=== PATIENT | male | born 1950 | race Caucasian/White ===

== ENCOUNTER 2017-08-16 15:54 | Inpatient (IN) ==
[2017-08-16 17:08] LABS: Basophils % 0.1 %; Hematocrit 39.5 % (37.5-50.1); Hemoglobin 13.4 g/dL (12.9-16.9); Immature Granulocytes % 0.9 % (0-4); Immature Platelets 3.1 % (1.1-6.1); Lymphocytes # 1.2 K/mcL (0.6-4.6); Lymphocytes % 5.5 %; Mean Corpuscular HGB Conc 33.9 g/dL (31.6-35.5); Mean Corpuscular Hemoglobin 28.4 pg (28.0-33.3); Mean Corpuscular Volume 83.7 fL (83.0-100.0); Monocytes % 9.2 %; Neutrophils # 17.8 K/mcL (1.6-8.9); Platelet Count 268 K/mcL (140-400); Red Blood Count 4.72 M/mcL (4.19-5.50); Red Cell Distribution Width 12.7 % (11.5-14.5); Segmented Neutrophils % 84.3 %
[2017-08-16] MEDS ORDERED: Piperacillin/Tazobactam 3.375 GM in Water for inj. (sterile) 20 ML IVP ONE (17:10)
[2017-08-16] MEDS ORDERED: Vancomycin 1,000 MG in D5% in Water 250 ML IVPB ONE (17:10)
--- NOTE | 2017-08-16 17:14 | Emergency Department Note ---
Disposition Clinical Impression: Chest pain Qualifiers: Chest pain type: unspecified Qualified Code(s): R07.9 - Chest pain, unspecified Foot ulcer Qualifiers: Laterality: right Non-pressure ulcer stage: unspecified non-pressure ulcer stage Qualified Code(s): L97.519 - Non-pressure chronic ulcer of other part of right foot with unspecified severity Cellulitis Qualifiers: Site of cellulitis: extremity Site of cellulitis of extremity: toe Laterality: right Qualified Code(s): L03.031 - Cellulitis of right toe Disposition: Admitted As Inpatient Condition: Fair Referrals: Aditya Espinoza Jr, MD [Primary Care Provider] - Forms: ED Satisfaction Letter Time of Disposition: 20:41 General Adult HPI - General Chief complaint: ED Weakness Stated complaint: Multiple complaints Time Seen by Provider: 08/16/17 16:42 Source: patient, family Limitations: no limitations Nursing Notes Reviewed: Yes Vital Signs Reviewed: Yes - History of Present Illness HPI Narrative: Patient is a 66-year-old male that presents to the emergency department for generalized not feeling well. Patient said he feels wore out, vomiting, diarrhea and not eating well for the past week. Patient states his fever and chills. States that he has also had generalized body aches. Nothing makes any better or worse. Patient also states that he is having some chest discomfort and shortness of breath with a history of open-heart surgery consisting of triple bypass and aortic valve replacement. Patient also states that he has had a wound to his right great toe that began approximately 3 days ago. Pain Scale: 8 - Related Data Home Medications Medication Instructions Recorded Confirmed Enalapril Maleate [Vasotec] 10 mg PO BID 12/17/15 02/25/17 Furosemide [Lasix] 20 mg PO DAILY 12/17/15 02/25/17 Simvastatin [Zocor] 40 mg PO QPM 12/17/15 02/25/17 SitaGLIPtin [Januvia] 100 mg PO DAILY 12/17/15 02/25/17 Sotalol [Betapace] 80 mg PO Q12HR 12/17/15 02/25/17 Spironolactone [Aldactone] 12.5 mg PO DAILY 12/17/15 02/25/17 glipiZIDE [Glipizide] 10 mg PO DAILY 05/23/16 08/02/17 metFORMIN [Glucophage] 1,000 mg PO BIDWM 12/17/15 02/25/17 Aspirin 325 mg PO BID 01/11/16 02/25/17 Allergies Allergy/AdvReac Type Severity Reaction Status Date / Time codeine Allergy Rash Verified 08/16/17 16:07 All systems ED: reviewed and negative except as stated. Constitutional: Reports: other Cardiovascular: Reports: chest pain Respiratory: Reports: dyspnea (Body aches) Gastrointestinal: Reports: nausea, vomiting, diarrhea Integumentary: Reports: other Past Medical History - Past Medical History Medical history: Reports: CHF, diabetes, hyperlipidemia, hypertension, peripheral artery disease, valvular heart disease Surgical history: Reports: coronary bypass (CABG), heart valve replacement, pacemaker/AICD, vascular surgery Psychiatric history: Reports: no psych history - Social History Smoking Status: Former smoker Smokeless Tobacco Status: Yes Alcohol use: Reports: none Drug use: Reports: none Physical Exam - General Limitations: no limitations General appearance: alert, in no apparent distress - Head Head exam: atraumatic, normocephalic - Eye Eye exam: Present: normal appearance, EOMI - Neck Neck exam: Present: normal inspection, full ROM, trachea midline - Respiratory Respiratory exam: Present: normal lung sounds bilaterally. Absent: respiratory distress, wheezes - Cardiovascular Cardiovascular exam: Present: normal rhythm, tachycardia, normal heart sounds, + S1, +S2 - Abdominal Exam Abdominal exam: Present: soft, Non-Tender, normal bowel sounds - Expanded Lower Extremity Exam Foot/toe exam: Present: full ROM, other (Patient has erythema and if ulcer to the right great toe.). Absent: normal inspection, tenderness Neurovascular/Tendon exam: Present: normal capillary refill, pulse deficit, motor deficit, sensory deficit - Neurological Exam Neurological exam: Present: alert, oriented X3 - Psychiatric Psychiatric exam: Present: normal affect, normal mood - Skin Skin exam: Present: warm, dry, erythema (Over the right foot), other (Ulcer on the right great toe) Course Vital Signs Temperature 98.8 F 08/16/17 16:02 Pulse Rate 108 08/16/17 16:02 Respiratory Rate 18 08/16/17 16:02 Blood Pressure 117/74 08/16/17 16:02 O2 Sat by Pulse Oximetry 95 08/16/17 16:02 Temperature 98.8 F 08/16/17 16:02 Pulse Rate 107 08/16/17 20:20 Respiratory Rate 20 08/16/17 20:20 Blood Pressure 117/66 08/16/17 20:20 O2 Sat by Pulse Oximetry 96 08/16/17 20:20 Oxygen Delivery Oxygen Delivery Room Air Medical Decision Making - MDM Narrative Medical decision making narrative: We will order a CBC, BMP, troponin, chest x-ray, EKG, x-rays the foot, blood cultures, ESR. The patient's troponin was negative. Patient does have an elevated white count which could be consistent with a possible cellulitis or infection of the foot ulcer. His EKG showed a ventricular paced rhythm without STEMI noted. X-rays of the foot were negative for bony erosion or osteomyelitis. Patient has been elevated glucose of 363 with an anion gap of 15. The patient's bicarbonate is 22. Patient has an elevated ESR, CRP and white count. There is concern for this diabetic foot ulcer and possible cellulitis. The patient has been started on vancomycin and Zosyn to cover for any diabetic infections. I called and talked to the on-call art therapy specialist Dr. Toussaint and he is in agreement with treating this like a diabetic foot ulcer and is familiar with this patient. He stated that he would see this patient in consult tomorrow. The patient will need to be admitted to the hospital for further evaluation and management. Consult the hospitalist medics and the patient her service. The patient be admitted to the hospitalist for further evaluation and management - Lab Data Lab results reviewed: Yes I reviewed the patient's lab results. Result diagrams: 08/16/17 16:59 08/16/17 16:59 Lab Results 08/16/17 08/16/17 08/16/17 Range/Units 16:13 16:59 16:59 WBC 21.1 H (4.3-11.1) K/mcL RBC 4.72 (4.19-5.50) M/mcL Hgb 13.4 (12.9-16.9) g/dL Hct 39.5 (37.5-50.1) % MCV 83.7 (83.0-100.0) fL MCH 28.4 (28.0-33.3) pg MCHC 33.9 (31.6-35.5) g/dL RDW 12.7 (11.5-14.5) % Plt Count 268 (140-400) K/mcL MPV 10.0 (9.4-12.4) fL Immature Gran % 0.9 (0-4) % Seg Neutrophils % 84.3 % Lymphocytes % 5.5 % Monocytes % 9.2 % Eosinophils % 0.0 % Basophils % 0.1 % Neutrophils # 17.8 H (1.6-8.9) K/mcL Lymphocytes # 1.2 (0.6-4.6) K/mcL Monocytes # 2.0 H (0.0-1.3) K/mcL Eosinophils # 0.0 (0.0-0.6) K/mcL Basophils # 0.0 (0.0-0.2) K/mcL Immature Plt Fraction 3.1 (1.1-6.1) % ESR (0-10) mm/hr PT (9.4-12.1) Seconds INR APTT (26.0-36.0) Seconds VBG pH (7.32-7.42) pH Units VBG pCO2 (41-51) mmHg VBG pO2 (25-50) mmHg VBG HCO3 (21-27) mEq/L Sodium 127 L (136-145) mEq/L Potassium 4.6 (3.5-5.1) mEq/L Chloride 93 L (98-107) mEq/L Carbon Dioxide 22 L (23-29) mEq/L BUN 32 H (8-23) mg/dL Creatinine 1.03 (0.70-1.30) mg/dL Est GFR ( Amer) > 60 (> 60) Est GFR (Non-Af Amer) > 60 (> 60) BUN/Creatinine Ratio 31 H (6-26) Glucose 363 H (70-105) mg/dL POC Glucose 363 H (58-89) Calculated Osmolality 286 (280-300) Calcium 9.0 (8.6-10.3) mg/dL Total Bilirubin 0.9 (0.3-1.0) mg/dL AST 14 (13-39) Units/L ALT 16 (7-52) Units/L Alkaline Phosphatase 72 (34-104) Units/L Troponin I (< 0.04) ng/mL C-Reactive Protein (Less than 10) mg/L Serum Total Protein 7.0 (6.4-8.9) g/dL Albumin 3.5 (3.5-5.7) g/dL Globulin 3.5 (2.4-3.5) g/dL Albumin/Globulin Ratio 1.0 L (1.1-2.2) Beta-Hydroxybutyric Acd (0.02-0.27) mmol/L Urine Color (Yellow) Urine Clarity (Clear) Urine pH (5.0-8.0) pH Units Ur Specific [place] (1.010-1.025) Urine Protein (Neg-Trace) mg/dL Urine Glucose (UA) (Normal) mg/dL Urine Ketones (Negative) mg/dL Urine Blood (Negative) Urine Nitrite (Negative) Urine Bilirubin (Negative) Urine Urobilinogen (Normal) mg/dL Ur Leukocyte Esterase (Negative) Ur Culture Indicated? (NO) 08/16/17 08/16/17 08/16/17 Range/Units 16:59 17:22 17:22 WBC (4.3-11.1) K/mcL RBC (4.19-5.50) M/mcL Hgb (12.9-16.9) g/dL Hct (37.5-50.1) % MCV (83.0-100.0) fL MCH (28.0-33.3) pg MCHC (31.6-35.5) g/dL RDW (11.5-14.5) % Plt Count (140-400) K/mcL MPV (9.4-12.4) fL Immature Gran % (0-4) % Seg Neutrophils % % Lymphocytes % % Monocytes % % Eosinophils % % Basophils % % Neutrophils # (1.6-8.9) K/mcL Lymphocytes # (0.6-4.6) K/mcL Monocytes # (0.0-1.3) K/mcL Eosinophils # (0.0-0.6) K/mcL Basophils # (0.0-0.2) K/mcL Immature Plt Fraction (1.1-6.1) % ESR >= 130 H (0-10) mm/hr PT 12.5 H (9.4-12.1) Seconds INR 1.2 APTT 27.0 (26.0-36.0) Seconds VBG pH (7.32-7.42) pH Units VBG pCO2 (41-51) mmHg VBG pO2 (25-50) mmHg VBG HCO3 (21-27) mEq/L Sodium (136-145) mEq/L Potassium (3.5-5.1) mEq/L Chloride (98-107) mEq/L Carbon Dioxide (23-29) mEq/L BUN (8-23) mg/dL Creatinine (0.70-1.30) mg/dL Est GFR ( Amer) (> 60) Est GFR (Non-Af Amer) (> 60) BUN/Creatinine Ratio (6-26) Glucose (70-105) mg/dL POC Glucose (58-89) Calculated Osmolality (280-300) Calcium (8.6-10.3) mg/dL Total Bilirubin (0.3-1.0) mg/dL AST (13-39) Units/L ALT (7-52) Units/L Alkaline Phosphatase (34-104) Units/L Troponin I < 0.03 (< 0.04) ng/mL C-Reactive Protein (Less than 10) mg/L Serum Total Protein (6.4-8.9) g/dL Albumin (3.5-5.7) g/dL Globulin (2.4-3.5) g/dL Albumin/Globulin Ratio (1.1-2.2) Beta-Hydroxybutyric Acd (0.02-0.27) mmol/L Urine Color (Yellow) Urine Clarity (Clear) Urine pH (5.0-8.0) pH Units Ur Specific [place] (1.010-1.025) Urine Protein (Neg-Trace) mg/dL Urine Glucose (UA) (Normal) mg/dL Urine Ketones (Negative) mg/dL Urine Blood (Negative) Urine Nitrite (Negative) Urine Bilirubin (Negative) Urine Urobilinogen (Normal) mg/dL Ur Leukocyte Esterase (Negative) Ur Culture Indicated? (NO) 08/16/17 08/16/17 08/16/17 Range/Units 17:22 17:51 17:54 WBC (4.3-11.1) K/mcL RBC (4.19-5.50) M/mcL Hgb (12.9-16.9) g/dL Hct (37.5-50.1) % MCV (83.0-100.0) fL MCH (28.0-33.3) pg MCHC (31.6-35.5) g/dL RDW (11.5-14.5) % Plt Count (140-400) K/mcL MPV (9.4-12.4) fL Immature Gran % (0-4) % Seg Neutrophils % % Lymphocytes % % Monocytes % % Eosinophils % % Basophils % % Neutrophils # (1.6-8.9) K/mcL Lymphocytes # (0.6-4.6) K/mcL Monocytes # (0.0-1.3) K/mcL Eosinophils # (0.0-0.6) K/mcL Basophils # (0.0-0.2) K/mcL Immature Plt Fraction (1.1-6.1) % ESR (0-10) mm/hr PT (9.4-12.1) Seconds INR APTT (26.0-36.0) Seconds VBG pH (7.32-7.42) pH Units VBG pCO2 (41-51) mmHg VBG pO2 (25-50) mmHg VBG HCO3 (21-27) mEq/L Sodium (136-145) mEq/L Potassium (3.5-5.1) mEq/L Chloride (98-107) mEq/L Carbon Dioxide (23-29) mEq/L BUN (8-23) mg/dL Creatinine (0.70-1.30) mg/dL Est GFR ( Amer) (> 60) Est GFR (Non-Af Amer) (> 60) BUN/Creatinine Ratio (6-26) Glucose (70-105) mg/dL POC Glucose (58-89) Calculated Osmolality (280-300) Calcium (8.6-10.3) mg/dL Total Bilirubin (0.3-1.0) mg/dL AST (13-39) Units/L ALT (7-52) Units/L Alkaline Phosphatase (34-104) Units/L Troponin I (< 0.04) ng/mL C-Reactive Protein 252 H (Less than 10) mg/L Serum Total Protein (6.4-8.9) g/dL Albumin (3.5-5.7) g/dL Globulin (2.4-3.5) g/dL Albumin/Globulin Ratio (1.1-2.2) Beta-Hydroxybutyric Acd 1.28 H (0.02-0.27) mmol/L Urine Color Yellow (Yellow) Urine Clarity Clear (Clear) Urine pH 5.5 (5.0-8.0) pH Units Ur Specific [place] > 1.030 H (1.010-1.025) Urine Protein Negative (Neg-Trace) mg/dL Urine Glucose (UA) >=1000 H (Normal) mg/dL Urine Ketones 15 H (Negative) mg/dL Urine Blood Negative (Negative) Urine Nitrite Negative (Negative) Urine Bilirubin Negative (Negative) Urine Urobilinogen Normal (Normal) mg/dL Ur Leukocyte Esterase Negative (Negative) Ur Culture Indicated? NO (NO) 08/16/17 Range/Units 18:06 WBC (4.3-11.1) K/mcL RBC (4.19-5.50) M/mcL Hgb (12.9-16.9) g/dL Hct (37.5-50.1) % MCV (83.0-100.0) fL MCH (28.0-33.3) pg MCHC (31.6-35.5) g/dL RDW (11.5-14.5) % Plt Count (140-400) K/mcL MPV (9.4-12.4) fL Immature Gran % (0-4) % Seg Neutrophils % % Lymphocytes % % Monocytes % % Eosinophils % % Basophils % % Neutrophils # (1.6-8.9) K/mcL Lymphocytes # (0.6-4.6) K/mcL Monocytes # (0.0-1.3) K/mcL Eosinophils # (0.0-0.6) K/mcL Basophils # (0.0-0.2) K/mcL Immature Plt Fraction (1.1-6.1) % ESR (0-10) mm/hr PT (9.4-12.1) Seconds INR APTT (26.0-36.0) Seconds VBG pH 7.37 (7.32-7.42) pH Units VBG pCO2 45 (41-51) mmHg VBG pO2 21 L (25-50) mmHg VBG HCO3 26 (21-27) mEq/L Sodium (136-145) mEq/L Potassium (3.5-5.1) mEq/L Chloride (98-107) mEq/L Carbon Dioxide (23-29) mEq/L BUN (8-23) mg/dL Creatinine (0.70-1.30) mg/dL Est GFR ( Amer) (> 60) Est GFR (Non-Af Amer) (> 60) BUN/Creatinine Ratio (6-26) Glucose (70-105) mg/dL POC Glucose (58-89) Calculated Osmolality (280-300) Calcium (8.6-10.3) mg/dL Total Bilirubin (0.3-1.0) mg/dL AST (13-39) Units/L ALT (7-52) Units/L Alkaline Phosphatase (34-104) Units/L Troponin I (< 0.04) ng/mL C-Reactive Protein (Less than 10) mg/L Serum Total Protein (6.4-8.9) g/dL Albumin (3.5-5.7) g/dL Globulin (2.4-3.5) g/dL Albumin/Globulin Ratio (1.1-2.2) Beta-Hydroxybutyric Acd (0.02-0.27) mmol/L Urine Color (Yellow) Urine Clarity (Clear) Urine pH (5.0-8.0) pH Units Ur Specific [place] (1.010-1.025) Urine Protein (Neg-Trace) mg/dL Urine Glucose (UA) (Normal) mg/dL Urine Ketones (Negative) mg/dL Urine Blood (Negative) Urine Nitrite (Negative) Urine Bilirubin (Negative) Urine Urobilinogen (Normal) mg/dL Ur Leukocyte Esterase (Negative) Ur Culture Indicated? (NO) - Radiology Data Radiology results reviewed: Yes I reviewed the patient's radiology results. Chest X-Ray 08/16/17 16:52 IMPRESSION: No acute cardiopulmonary process. D/ / 08/16/2017 17:23:03 Tani Reno MD / tena Interpreting Provider: Tani Reno MD Foot X-Ray 08/16/17 16:52 IMPRESSION: No acute osseous abnormality. D/ / 08/16/2017 17:17:06 Tani Reno MD / Adriane Ghotra Interpreting Provider: Tani Reno MD - EKG Data EKG #1 EKG attestation: Yes I reviewed and interpreted this EKG. EKG results narrative: EKG showed a ventricularly paced rhythm at a rate of 130 beats, NH interval 150 , irritation 169, QTC of 474 and no STEMI is noted on this EKG. Attestation Statement - Attestation Attestation: I, Akin Moseley DO, examined this patient [id number] and my medical decision-making was reviewed with Dr. Jonas Whitlock, Resident Physician. I agree with the documented findings, disposition and treatment plan as described except to the extent set forth below. Please see my progress notes for details. 66-year-old male presents emergency room with multiple complaints. Main complaint on presentation here today is that he stubbed his toe several days ago now has redness swelling irritation streaking up his foot. He also has some chest tightness and discomfort. He denies any fevers or chills nausea vomiting or diarrhea. Denies any headache or vision change. On physical exam this is a well-appearing male in no apparent distress. His lungs are clear his heart is regular abdomen is soft nontender nondistended. He has no visible signs of rash or lesion on the upper extremities. Lower extremities were evaluated and he does have peripheral artery disease. Pulses are intact and capillary refill are normal. Patient has what appears to be necrotic area to the base of the MTP of the great toe of the right foot. Patient has swelling irritation in that area as well. There streaking redness going up the anterior dorsal aspect of the foot up into the anterior aspect of the calf. Patient has no pain with movement of the ankle mortise joint or with palpation of the calf at this time. He does have significant tenderness to palpation of the MTP joint of the great toe. The phalanges do not appear to be involved. 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 Patient is concerning for diabetic foot ulcer with cellulitis at this time. Screening evaluation will be completed for cardiac disease, DKA, cellulitis and osteomyelitis of the foot. Labs show significantly elevated white cell count. Patient's sodium is low but his bicarbonate was normal. Glucose is elevated. ESR is greater than 1:30 and CRP is in the 200 range. Patient is concerning for infectious etiology versus bony deterioration. There is no free air noted on the x-ray of the foot and there is no signs of bony deterioration or osteomyelitis at this time. The concern is her clinical osteomyelitis based on the laboratory workup on presentation. Patient started on Bank and Zosyn covering for atypicals as well as diabetic-related infection. Patient will require hospital admission for further evaluation cytologically presentation and evaluation by the art therapy specialist. Consultation will be placed out of the art therapy specialist here tonight and patient will be admitted definitively. No critical care provider the patient should have a course of evaluation. Otherwise he is requiring no symptomatically treatment will control pain here in the emergency room. See detailed documentation of the physical exam, medical intervention, medical decision-making and disposition and the resident physician's note. Doppler pulses completed on the bilateral feet no symmetrical. 2125 Patient is stable at this time. Admitted to the hospitalist for definitive management.
[2017-08-16 17:25] LABS: Alanine Aminotransferase 16 Units/L (7-52); Albumin 3.5 g/dL (3.5-5.7); Alkaline Phosphatase 72 Units/L (34-104); Aspartate Amino Transferase 14 Units/L (13-39); BUN/Creatinine Ratio 31 (6-26); Bilirubin,Total 0.9 mg/dL (0.3-1.0); Blood Urea Nitrogen 32 mg/dL (8-23); Carbon Dioxide 22 mEq/L (23-29); Chloride 93 mEq/L (98-107); Globulin 3.5 g/dL (2.4-3.5); Glucose 363 mg/dL (70-105); Osmolality,Calculated 286 (280-300); Potassium 4.6 mEq/L (3.5-5.1); Sodium 127 mEq/L (136-145); eGFR For African Americans > 60 (> 60); eGFR For Non-African Americans > 60 (> 60)
[2017-08-16 17:38] LABS: INR 1.2; Prothrombin Time 12.5 Seconds (9.4-12.1)
[2017-08-16] MEDS ORDERED: GI Cocktail 40 ML EACH PO ONE (17:53)
[2017-08-16 18:02] LABS: Bilirubin,Urine Negative (Negative); Blood,Urine Negative (Negative); Clarity,Urine Clear (Clear); Color,Urine Yellow (Yellow); Glucose,Urine (UA) >=1000 mg/dL (Normal); Ketones,Urine 15 mg/dL (Negative); Leukocyte Esterase,Urine Negative (Negative); Nitrite,Urine Negative (Negative); PH,Urine 5.5 pH Units (5.0-8.0); Protein,Urine Negative (Neg-Trace); Specific Gravity,Urine > 1.030 (1.010-1.025); Urobilinogen,Urine Normal (Normal)
[2017-08-16 18:09] LABS: VBG HCO3 26 mEq/L (21-27); VBG PCO2 45 mmHg (41-51); VBG PH 7.37 pH Units (7.32-7.42); VBG PO2 21 mmHg (25-50)
[2017-08-16] MEDS ORDERED: 0.9 % Sodium Chloride 1,000 ML IVC ONE (19:43)
[2017-08-16] MEDS ORDERED: 0.9 % Sodium Chloride 1,000 ML IVC SCH ×2 (19:45→22:54)
[2017-08-16] MEDS ORDERED: Dextrose Gel 15 GM/37.5 ML TUBE PO PRN ×2 (21:18)
[2017-08-16] MEDS ORDERED: *HR* Dextrose 50 % in Water (Syg) 50 ML SYRINGE IVP PRN (21:18)
[2017-08-16] MEDS ORDERED: D5% in Water 1,000 ML IVC PRN (21:18)
[2017-08-16] MEDS ORDERED: Naloxone 0.4 MG/ML INJ IVP PRN (22:26)
--- NOTE | 2017-08-16 22:52 | Internal Med History&Physical ---
Date of Encounter: 08/16/17 Time of Encounter: 21:30 Assessment and Plan (1) Sepsis Current visit: Yes Status: Acute Patient has diabetic foot ulcer infection. Meet criteria of sepsis with leukocytosis and tachycardia. - IV fluid started ER. Lactate 1.0. Patient has systolic CHF, will give careful IV fluid resuscitation. - Place patient on Vanco and Zosyn. - Podiatry consult called by ER - Follow-up blood culture and wound culture Patient is at high risk because he is on vancomycin, need close monitoring Qualifiers: Sepsis type: sepsis due to unspecified organism Qualified Code(s): A41.9 - Sepsis, unspecified organism (2) Diabetic foot ulcer Current visit: No Status: Chronic Management as above Qualifiers: Diabetic foot ulcer location: toe Diabetes mellitus type: type 2 Laterality: right Non-pressure ulcer stage: unspecified non-pressure ulcer stage Qualified Code(s): E11.621 - Type 2 diabetes mellitus with foot ulcer; L97.519 - Non-pressure chronic ulcer of other part of right foot with unspecified severity; L97.519 - Non-pressure chronic ulcer of other part of right foot with unspecified severity; L97.519 - Non-pressure chronic ulcer of other part of right foot with unspecified severity; L97.519 - Non-pressure chronic ulcer of other part of right foot with unspecified severity (3) Diabetes mellitus type II, non insulin dependent Current visit: No Status: Chronic Patient is on glipizide, metformin, and the Januvia at home. Place patient on sliding scale insulin when patient is in the hospital (4) CAD (coronary artery disease) Current visit: No Status: Acute No chest pain. Continue home medications Qualifiers: Coronary Disease-Associated Artery/Lesion type: bypass graft [place] vs. transplanted heart: [place] heart Associated angina: without angina Qualified Code(s): I25.810 - Atherosclerosis of coronary artery bypass graft(s) without angina pectoris (5) DVT prophylaxis Current visit: No Status: Acute Heparin subcutaneously (6) Systolic CHF Current visit: No Status: Acute History of systolic CHF with LVEF 15-20%. On beta miguel and BETHANY inhibitor. S /P PPM/AICD. Appears euvolemic right now. Careful IV fluid resuscitation Qualifiers: Congestive heart failure chronicity: chronic Qualified Code(s): I50.22 - Chronic systolic (congestive) heart failure Internal Medicine - H&P: HPI Chief complaint: Whole body ache Admitted From: Home Plans for Post Hospital Care: Home History of present illness: Mr. Villalpando is a 66 year old male with a history of CAD S/P CABG, bio aortic valve replacement, s/p PPM/AICD, DM, HTN present to ER for whole body ache, diarrhea and vomiting for 2 days but stopped now. Patient thought he has flu. He had the flu test which is negative. Patient has subjective fever. Patient denies cough or shortness of breath, or chest pain. Patient was found new Rt foot ulcer for 3 days. Patient has diabetes neuropathy and he does not complain of pain. Patient has history of left foot ulcer and end up with toe amputation. Patient was found leukocytosis and tachycardia. He was admitted for diabetic foot ulcer and sepsis. Past Med Surg Social Fam HX - Past Medical History Medical history: CHF, diabetes, hyperlipidemia, hypertension, peripheral artery disease, valvular heart disease Psychiatric history: no psych history - Past Surgical History Surgical History: coronary bypass (CABG), heart valve replacement, pacemaker/ AICD, vascular surgery - Social History Smoking Status: Former smoker Smokeless Tobacco Status: Yes Alcohol use: none Drug use: none - Family History Mother Adopted: No Living Status: Still Living Hx Family Cardiac Disorders: Yes Father Living Status: Internal Medicine - H&P: Meds Enalapril Maleate [Vasotec] 10 mg PO BID 12/17/15 [History] Furosemide [Lasix] 20 mg PO DAILY 12/17/15 [History] Simvastatin [Zocor] 40 mg PO QPM 12/17/15 [History] SitaGLIPtin [Januvia] 100 mg PO DAILY 12/17/15 [History] Sotalol [Betapace] 80 mg PO Q12HR 12/17/15 [History] Spironolactone [Aldactone] 12.5 mg PO DAILY 12/17/15 [History] glipiZIDE [Glipizide] 10 mg PO DAILY 12/17/15 [History] metFORMIN [Glucophage] 1,000 mg PO BIDWM 12/17/15 [History] Aspirin 325 mg PO BID 01/11/16 [History] 3 Allergy/AdvReac Type Severity Reaction Status Date / Time codeine Allergy Rash Verified 08/16/17 16:07 All Systems PM: A 10-system review of systems was performed and is negative for pertinent findings except as documented above in the HPI. - Constitutional Vitals: Temp Pulse Resp BP Pulse Ox 99.6 F 109 17 126/69 95 08/16/17 21:41 08/16/17 21:41 08/16/17 21:41 08/16/17 21:41 08/16/17 21:41 General appearance: Present: A&O X 3, no acute distress, answers questions appropriately - Head Head exam: Present: atraumatic, normocephalic - Eye Eye exam: Present: PERRL, conjuntiva pink, sclera anicteric Pupils: Present: PERRL - Neck Neck exam general surgery: Present: supple, trachea midline. Absent: lymphadenopathy - Respiratory Respiratory exam: Present: CTAB. Absent: accessory muscle use, rales, rhonchi, wheezes - Cardiovascular Cardiovascular exam: Present: RRR, +S1, +S2. Absent: diastolic murmur, gallop, rubs, systolic murmur - GI/Abdominal GI/Abdominal exam: Present: normal bowel sounds, soft, no peritoneal signs. Absent: distended, tenderness - Extremities Exam Extremities exam: Present: warm, radial pulses palpable and symmetrical. Absent : calf tenderness, cyanotic, pedal edema Additional comments: Right foot ulcer well dressed - Neurological Exam Neurological exam: Present: CN II-XII intact, oriented X3, no focal deficits. Absent: pronater drift, facial droop, speech deficit - Skin Skin exam: Present: dry, intact Internal Med - H&P Results - Labs CBC & Chem 7: 08/16/17 16:59 08/16/17 16:59
[2017-08-16] MEDS ORDERED: Vancomycin 1,000 MG in D5% in Water 250 ML IVPB SCH (23:00)
[2017-08-16] MEDS: Insulin LISPRO 300 UNITS/3 ML VIAL SQ SCH (23:45)
[2017-08-17] MEDS: Piperacillin/Tazobactam 3.375 GM/200 ML BAG IVPB SCH ×3 (02:15→22:15)
[2017-08-17 06:45] LABS: Basophils % 0.2 %; Hematocrit 34.3 % (37.5-50.1); Immature Granulocytes % 1.4 % (0-4); Lymphocytes # 1.5 K/mcL (0.6-4.6); Lymphocytes % 8.9 %; Mean Corpuscular HGB Conc 33.2 g/dL (31.6-35.5); Mean Corpuscular Hemoglobin 27.9 pg (28.0-33.3); Mean Corpuscular Volume 84.1 fL (83.0-100.0); Mean Platelet Volume 10.1 fL (9.4-12.4); Monocytes # 1.9 K/mcL (0.0-1.3); Monocytes % 11.1 %; Neutrophils # 13.1 K/mcL (1.6-8.9); Platelet Count 221 K/mcL (140-400); Red Blood Count 4.08 M/mcL (4.19-5.50); Red Cell Distribution Width 12.7 % (11.5-14.5); Segmented Neutrophils % 78.4 %
[2017-08-17] MEDS: Vancomycin 1,000 MG in D5% in Water 250 ML IVPB SCH ×2 (06:46→17:15)
[2017-08-17] MEDS: *HR* Heparin 5,000 UNIT/ML VIAL SQ SCH ×2 (06:48→17:10)
[2017-08-17 06:52] LABS: Hemoglobin 11.4 g/dL (12.9-16.9)
[2017-08-17 07:00] LABS: BUN/Creatinine Ratio 29 (6-26); Blood Urea Nitrogen 20 mg/dL (8-23); Carbon Dioxide 22 mEq/L (23-29); Chloride 101 mEq/L (98-107); Glucose 202 mg/dL (70-105); Magnesium 1.8 mg/dL (1.6-2.6); Osmolality,Calculated 280 (280-300); Sodium 131 mEq/L (136-145); eGFR For African Americans > 60 (> 60); eGFR For Non-African Americans > 60 (> 60)
[2017-08-17] MEDS: 0.9 % Sodium Chloride 1,000 ML IVC SCH (08:56)
[2017-08-17] MEDS: Aspirin 325 MG TABLET PO SCH ×2 (08:56→22:18)
[2017-08-17] MEDS: Insulin LISPRO 300 UNITS/3 ML VIAL SQ SCH ×4 (10:20→22:27)
[2017-08-17] MEDS: Mag Hydrox/Al Hydrox/Simeth 30 ML UDC PO PRN ×2 (11:57→18:37)
--- NOTE | 2017-08-17 11:58 | Podiatry Consult Note ---
Date of Encounter: 08/18/17 Time of Encounter: 11:00 Assessment and Plan (1) Diabetic foot ulcer Current visit: Yes Status: Chronic Ulcer to the plantar aspect of the right great toe at the IPJ with eschar extending from the base of the right great toe to the 1st metatarsal head along the medial aspect with cellulitis ascending from the dorsum of the right foot to the ankle secondary to deep tissue injury from frostbite. Toe #2 of the right foot and distal aspect of the great toe are pallored with purple discoloration secondary to lizarraga bite. WBC upon admission 21.1, 16.7 today. ESR: >130, CRP: 252 Agree with present antibiotic therapy. Patient may need formal debridement depending upon demarcation of the wound with possibility of loss of digits depending upon response to treatment . Wound care orders written by Dr. Toussaint. Qualifiers: Diabetic foot ulcer location: unspecified part of foot Diabetes mellitus type: type 2 Laterality: right Non-pressure ulcer stage: unspecified non- pressure ulcer stage Qualified Code(s): E11.621 - Type 2 diabetes mellitus with foot ulcer; L97.519 - Non-pressure chronic ulcer of other part of right foot with unspecified severity; L97.519 - Non-pressure chronic ulcer of other part of right foot with unspecified severity; L97.519 - Non-pressure chronic ulcer of other part of right foot with unspecified severity; L97.519 - Non- pressure chronic ulcer of other part of right foot with unspecified severity (2) Wound infection Current visit: No Status: Acute (3) Cellulitis Current visit: Yes Status: Acute Qualifiers: Site of cellulitis: extremity Site of cellulitis of extremity: lower extremity Laterality: left Qualified Code(s): L03.116 - Cellulitis of left lower limb (4) Atherosclerotic PVD with ulceration Current visit: No Status: Chronic Qualifiers: Peripheral atherosclerosis location: lower extremity Peripheral atherosclerosis artery type: [place] artery Lower extremity ulceration location : other part of foot Laterality: left Qualified Code(s): I70.245 - Atherosclerosis of [place] arteries of left leg with ulceration of other part of foot History of Present Illness HPI: Mr. Villalpando is a 66 year old male admitted to [facility] for diabetic foot infection and sepsis. Patient has a medical history significant for CAD S/P CABG, bi aortic valve replacement, s/p PPM/AICD, DM with neuropathy and HTN. S/p amputation of toe #5 left foot a year ago by Dr. Toussaint. Patient states four days ago he kicked his right foot to shake the snow out of boot and injured his right foot. Patient states the toe was not very painful, but has had increased swelling and redness over the past four days. Patient states he did not have an open area or any other color changes prior to kicking the snow out of his boot. Patient admits to fever, chills, n/v/d prior to admission. Patient states his blood sugars have been averaging in the 200s, but did have a reading of 455 a few days ago. Patient states he does have numbness and tingling to the right foot. Past Med Surg Social Fam HX - Past Medical History Medical history: CHF, diabetes, hyperlipidemia, hypertension, peripheral artery disease, valvular heart disease Psychiatric history: no psych history - Past Surgical History Surgical History: coronary bypass (CABG), heart valve replacement, pacemaker/ AICD, vascular surgery - Social History Smoking Status: Former smoker Smokeless Tobacco Status: Yes Alcohol use: none Drug use: none - Family History Mother Adopted: No Living Status: Still Living Hx Family Cardiac Disorders: Yes Father Living Status: Medications and Allergies Enalapril Maleate [Vasotec] 10 mg PO BID 12/17/15 [History] Furosemide [Lasix] 20 mg PO DAILY 12/17/15 [History] Simvastatin [Zocor] 40 mg PO QPM 12/17/15 [History] SitaGLIPtin [Januvia] 100 mg PO DAILY 12/17/15 [History] Sotalol [Betapace] 80 mg PO Q12HR 12/17/15 [History] Spironolactone [Aldactone] 25 mg PO BID 12/17/15 [History] glipiZIDE [Glipizide] 10 mg PO DAILY 12/17/15 [History] metFORMIN [Glucophage] 1,000 mg PO BIDWM 12/17/15 [History] Aspirin 325 mg PO BID 01/11/16 [History] Carvedilol [Coreg] 6.25 mg PO BID 08/17/17 [History] 3 Allergy/AdvReac Type Severity Reaction Status Date / Time codeine Allergy Rash Verified 08/16/17 16:07 All Systems Reviewed: A 10-system review of systems was performed and is negative for pertinent findings except as documented above in the HPI. Physical Exam - Constitutional Vitals: Temp Pulse Resp BP Pulse Ox 99.4 F 103 16 127/74 97 08/17/17 07:58 08/17/17 07:58 08/17/17 07:58 08/17/17 07:58 08/17/17 07:58 Exam: General: A&O x3, calm and cooperative, no acute distress. Vascular: unable to palpate pedal pulses. Pedal pulses audible with doppler, Toe #2 of the right foot and distal aspect of the right great toe plantar aspect are pallored. Toe #2 left foot is cool to warm. Neurovascular: Absent sensation to toes #1, #2, #3 right foot. History of amputation to toe #5 left foot. Integument: Ulcer to the plantar aspect of the right great toe at the IPJ with eschar extending from the base of the right great toe to the 1st metatarsal head along the medial aspect with cellulitis ascending from the dorsum of the right foot to the ankle. Toe #2 of the right foot and distal aspect of the great toe are pallored with purple discoloration, bulla to the dorsum of the right foot at the base of toes #2. #3 right foot. No pus, no odor, no active drainage. Results - Labs Result Diagrams: 08/18/17 10:05 08/18/17 10:05 Labs: Abnormal lab results WBC 16.7 K/mcL (4.3-11.1) H 08/17/17 06:22 RBC 4.08 M/mcL (4.19-5.50) L 08/17/17 06:22 Hgb 11.4 g/dL (12.9-16.9) L D 08/17/17 06:22 Hct 34.3 % (37.5-50.1) L 08/17/17 06:22 MCH 27.9 pg (28.0-33.3) L 08/17/17 06:22 Neutrophils # 13.1 K/mcL (1.6-8.9) H 08/17/17 06:22 Monocytes # 1.9 K/mcL (0.0-1.3) H 08/17/17 06:22 ESR >= 130 mm/hr (0-10) H 08/16/17 17:22 PT 12.5 Seconds (9.4-12.1) H 08/16/17 17:22 VBG pO2 21 mmHg (25-50) L 08/16/17 18:06 Sodium 131 mEq/L (136-145) L 08/17/17 06:22 Carbon Dioxide 22 mEq/L (23-29) L 08/17/17 06:22 Creatinine 0.69 mg/dL (0.70-1.30) L 08/17/17 06:22 BUN/Creatinine Ratio 29 (6-26) H 08/17/17 06:22 Glucose 202 mg/dL (70-105) H 08/17/17 06:22 POC Glucose 358 (58-89) H 08/16/17 21:27 Calcium 8.0 mg/dL (8.6-10.3) L 08/17/17 06:22 C-Reactive Protein 252 mg/L (Less than 10) H 08/16/17 17:22 Albumin/Globulin Ratio 1.0 (1.1-2.2) L 08/16/17 16:59 Beta-Hydroxybutyric Acd 1.28 mmol/L (0.02-0.27) H 08/16/17 17:51 Ur Specific [place] > 1.030 (1.010-1.025) H 08/16/17 17:54 Urine Glucose (UA) >=1000 mg/dL (Normal) H 08/16/17 17:54 Urine Ketones 15 mg/dL (Negative) H 08/16/17 17:54 H & H 08/17/17 Range/Units 06:22 Hgb 11.4 L D (12.9-16.9) g/dL Hct 34.3 L (37.5-50.1) % All other labs normal. Consult Discharge Plan - Plan Referrals: Aditya Espinoza Jr, MD [Primary Care Provider] -
--- NOTE | 2017-08-17 14:41 | Internal Med Progress Note ---
Date of Encounter: 08/17/17 Time of Encounter: 10:00 - Assessment and plan (1) Diabetic foot ulcer Current Visit: Yes Status: Chronic Assessment and plan: Continue IV Abx Await podiatry assessment concern for frostbite Pain well tolerated most likely due to neuropathy Qualifiers: Diabetic foot ulcer location: unspecified part of foot Diabetes mellitus type: type 2 Laterality: right Non-pressure ulcer stage: unspecified non- pressure ulcer stage Qualified Code(s): E11.621 - Type 2 diabetes mellitus with foot ulcer; L97.519 - Non-pressure chronic ulcer of other part of right foot with unspecified severity; L97.519 - Non-pressure chronic ulcer of other part of right foot with unspecified severity; L97.519 - Non-pressure chronic ulcer of other part of right foot with unspecified severity; L97.519 - Non- pressure chronic ulcer of other part of right foot with unspecified severity (2) Diabetes mellitus type II, non insulin dependent Current Visit: No Status: Chronic Assessment and plan: maintain tight glycemic control check Hgb A1C Accuchecks AC and HS SSI (3) Cellulitis Current Visit: Yes Status: Acute Assessment and plan: cellulitis of dorsum of foot contiguous spread of infection likely from toe. continue Abx Qualifiers: Site of cellulitis: extremity Site of cellulitis of extremity: lower extremity Laterality: left Qualified Code(s): L03.116 - Cellulitis of left lower limb (4) Unspecified essential hypertension Current Visit: Yes Status: Chronic Assessment and plan: Stable. COntinue to monitor - Time Spent With Patient Greater than 35 minutes - Subjective Interval history: Patient states his right foot pain is better and he denies new chills. Feels weak overall - Constitutional Vitals: Temp Pulse Resp BP Pulse Ox 98.6 F 87 16 127/71 97 08/17/17 11:57 08/17/17 11:57 08/17/17 11:57 08/17/17 11:57 08/17/17 11:57 General appearance: Present: A&O X 3, answers questions appropriately Exam: moderate discomfort - Neck Neck exam general surgery: Present: supple, trachea midline. Absent: lymphadenopathy - Respiratory Respiratory exam: Present: CTAB. Absent: accessory muscle use, rales, rhonchi, wheezes - Cardiovascular Cardiovascular exam: Present: RRR, +S1, +S2. Absent: diastolic murmur, gallop, rubs, systolic murmur - Expanded Lower Extremities Exam Lower Leg exam: Present: erythema (Right bolton tracking towards dorsum of foot, Right great toe base is discolored with small foul smelling ulcer. Discolored/ Dark base. fluid filled vesicle on dorsal aspect of great toe) - Neurological Exam Neurological exam: Present: CN II-XII intact, oriented X3, no focal deficits. Absent: pronater drift, facial droop, speech deficit Internal Medicine: Result - Labs CBC & Chem 7: 08/17/17 06:22 08/17/17 06:22 Labs: Short CBC 08/17/17 Range/Units 06:22 WBC 16.7 H (4.3-11.1) K/mcL Hgb 11.4 L D (12.9-16.9) g/dL Hct 34.3 L (37.5-50.1) % Plt Count 221 (140-400) K/mcL Neutrophils # 13.1 H (1.6-8.9) K/mcL BMP 08/17/17 06:22 Sodium 131 L Potassium 4.0 Chloride 101 Carbon Dioxide 22 L BUN 20 Creatinine 0.69 L Glucose 202 H Calcium 8.0 L - ABG Interpretation ABG results: PT/INR, D-dimer PT 12.5 Seconds (9.4-12.1) H 08/16/17 17:22 Consult Discharge Plan - Plan Referrals: Aditya Espinoza Jr, MD [Primary Care Provider] -
--- NOTE | 2017-08-17 17:12 | Podiatry Consult Note ---
Date of Encounter: 08/17/17 Time of Encounter: 17:10 Assessment and Plan (1) Diabetic foot ulcer Current visit: Yes Status: Chronic Assessment: #1 we appreciate soft tissue injury secondary to cold injury with ulceration secondary to blistering dorsal aspect of his right foot from the second MTPJ to the midfoot in oblique fashion approximately 6 cm in length 2 cm in width partial thickness. #2 also appreciate unstageable full-thickness soft tissue injury in the plantar aspect of the right great toe as far proximal as the distal first metatarsal. The distal aspect of the right great toe spared but certainly is pallorous in nature and again secondary to cold injury. There is associated cellulitis of the right foot and ankle leg with this injury. #3 frostbite right foot #4 diabetes with angiopathy neuropathy. #5 multiple comorbidities as outlined in history. Plan: #1 recommend local wound care every 12 hours as ordered #2 keep right limb is warm as possible review noninvasive studies and consult vascular surgery #3 agree with present antibiotics therapy with monitor creatinine and kidney function because of use of vancomycin presently #4 pending blood cultures and wound cultures #5 patient may need formal debridement depending upon demarcation of the wound with possibility of loss of digits depending upon response to treatment . Qualifiers: Diabetic foot ulcer location: unspecified part of foot Diabetes mellitus type: type 2 Laterality: right Non-pressure ulcer stage: unspecified non- pressure ulcer stage Qualified Code(s): E11.621 - Type 2 diabetes mellitus with foot ulcer; L97.519 - Non-pressure chronic ulcer of other part of right foot with unspecified severity; L97.519 - Non-pressure chronic ulcer of other part of right foot with unspecified severity; L97.519 - Non-pressure chronic ulcer of other part of right foot with unspecified severity; L97.519 - Non- pressure chronic ulcer of other part of right foot with unspecified severity History of Present Illness Chief complaint: Right foot pain/wound/cellulitis HPI: Mr. Villalpando is a 66 year old male presented to the ED with the last 24 hours with right foot pain and injury likely secondary to exposure to cold. Patient is stigmata of frostbite on the distal medial plantar aspect of the right foot encompassing the great toe plantar aspect first MTPJ and second toe dorsal aspect of the second toe. Patient states he was shoveling snow/cutting firewood and severe cold weather. Patient states did noticed until the next day went to shoe and sock off today discoloration and blistering of his right foot. He also has recent nausea vomiting malaise chills fever. No complaints of chest pain shortness of breath. No bowel or bladder dysfunction. Past Med Surg Social Fam HX - Past Medical History Medical history: CHF, diabetes, hyperlipidemia, hypertension, peripheral artery disease, valvular heart disease Psychiatric history: no psych history - Past Surgical History Surgical History: coronary bypass (CABG), heart valve replacement, pacemaker/ AICD, vascular surgery - Social History Smoking Status: Former smoker Smokeless Tobacco Status: Yes Alcohol use: none Drug use: none - Family History Mother Adopted: No Living Status: Still Living Hx Family Cardiac Disorders: Yes Father Living Status: Medications and Allergies Enalapril Maleate [Vasotec] 10 mg PO BID 12/17/15 [History] Furosemide [Lasix] 20 mg PO DAILY 12/17/15 [History] Simvastatin [Zocor] 40 mg PO QPM 12/17/15 [History] SitaGLIPtin [Januvia] 100 mg PO DAILY 12/17/15 [History] Sotalol [Betapace] 80 mg PO Q12HR 12/17/15 [History] Spironolactone [Aldactone] 25 mg PO BID 12/17/15 [History] glipiZIDE [Glipizide] 10 mg PO DAILY 12/17/15 [History] metFORMIN [Glucophage] 1,000 mg PO BIDWM 12/17/15 [History] Aspirin 325 mg PO BID 01/11/16 [History] Carvedilol [Coreg] 6.25 mg PO BID 08/17/17 [History] 3 Allergy/AdvReac Type Severity Reaction Status Date / Time codeine Allergy Rash Verified 08/16/17 16:07 All Systems Reviewed: A 10-system review of systems was performed and is negative for pertinent findings except as documented above in the HPI. Physical Exam - Constitutional Vitals: Temp Pulse Resp BP Pulse Ox 98.7 F 92 17 135/71 97 08/17/17 16:35 08/17/17 16:35 08/17/17 16:35 08/17/17 16:35 08/17/17 16:35 General appearance: average body habitus - Head Head exam: Present: atraumatic - Neurological Exam Additional comments: Patient exhibits loss of protective sensation, epicritic sensation vibratory sensation from toes to tibia bilaterally. - Skin Skin exam: Present: cyanosis (We see eschar and blistering of the distal medial aspect of the right foot encompassing the first and second metatarsophalangeal joints distally plantar aspect of first MTPJ. Wound is dry plantarly with a bulla on the dorsal aspect of second MTPJ which has since collapsed with bathing. We noticed pallor on the plantar aspect of the distal right great toe. ) - Vascular Capillary Refill: sluggish (Of the right great toe. Pedal pulses are not palpable but audible on Doppler.) - Ankle & Foot Foot appearance: previous incision (History of amputation toe #5 portion of metatarsal #5 left foot healed/remote.) Results - Labs Result Diagrams: 08/17/17 06:22 08/17/17 06:22 Labs: Abnormal lab results WBC 16.7 K/mcL (4.3-11.1) H 08/17/17 06:22 RBC 4.08 M/mcL (4.19-5.50) L 08/17/17 06:22 Hgb 11.4 g/dL (12.9-16.9) L D 08/17/17 06:22 Hct 34.3 % (37.5-50.1) L 08/17/17 06:22 MCH 27.9 pg (28.0-33.3) L 08/17/17 06:22 Neutrophils # 13.1 K/mcL (1.6-8.9) H 08/17/17 06:22 Monocytes # 1.9 K/mcL (0.0-1.3) H 08/17/17 06:22 ESR >= 130 mm/hr (0-10) H 08/16/17 17:22 PT 12.5 Seconds (9.4-12.1) H 08/16/17 17:22 VBG pO2 21 mmHg (25-50) L 08/16/17 18:06 Sodium 131 mEq/L (136-145) L 08/17/17 06:22 Carbon Dioxide 22 mEq/L (23-29) L 08/17/17 06:22 Creatinine 0.69 mg/dL (0.70-1.30) L 08/17/17 06:22 BUN/Creatinine Ratio 29 (6-26) H 08/17/17 06:22 Glucose 202 mg/dL (70-105) H 08/17/17 06:22 POC Glucose 358 (58-89) H 08/16/17 21:27 Calcium 8.0 mg/dL (8.6-10.3) L 08/17/17 06:22 C-Reactive Protein 252 mg/L (Less than 10) H 08/16/17 17:22 Albumin/Globulin Ratio 1.0 (1.1-2.2) L 08/16/17 16:59 Beta-Hydroxybutyric Acd 1.28 mmol/L (0.02-0.27) H 08/16/17 17:51 Ur Specific [place] > 1.030 (1.010-1.025) H 08/16/17 17:54 Urine Glucose (UA) >=1000 mg/dL (Normal) H 08/16/17 17:54 Urine Ketones 15 mg/dL (Negative) H 08/16/17 17:54 H & H 08/17/17 Range/Units 06:22 Hgb 11.4 L D (12.9-16.9) g/dL Hct 34.3 L (37.5-50.1) % All other labs normal. Consult Discharge Plan - Plan Referrals: Aditya Espinoza Jr, MD [Primary Care Provider] -
[2017-08-18] MEDS ORDERED: Vancomycin 1,500 MG in D5% in Water 250 ML IVPB SCH (06:00)
[2017-08-18] MEDS: Piperacillin/Tazobactam 3.375 GM/200 ML BAG IVPB SCH ×3 (06:13→21:15)
[2017-08-18] MEDS: 0.9 % Sodium Chloride 1,000 ML IVC SCH (07:12)
[2017-08-18] MEDS: *HR* Heparin 5,000 UNIT/ML VIAL SQ SCH ×2 (07:14→17:02)
[2017-08-18] MEDS: Insulin LISPRO 300 UNITS/3 ML VIAL SQ SCH ×4 (07:18→20:20)
[2017-08-18 10:20] LABS: Basophils # 0.1 K/mcL (0.0-0.2); Basophils % 0.4 %; Hematocrit 35.5 % (37.5-50.1); Hemoglobin 11.7 g/dL (12.9-16.9); Immature Granulocytes % 0.9 % (0-4); Lymphocytes # 1.5 K/mcL (0.6-4.6); Mean Corpuscular Hemoglobin 28.6 pg (28.0-33.3); Mean Corpuscular Volume 86.8 fL (83.0-100.0); Mean Platelet Volume 9.9 fL (9.4-12.4); Monocytes # 1.4 K/mcL (0.0-1.3); Monocytes % 8.6 %; Neutrophils # 13.2 K/mcL (1.6-8.9); Platelet Count 234 K/mcL (140-400); Red Blood Count 4.09 M/mcL (4.19-5.50); Red Cell Distribution Width 12.7 % (11.5-14.5); Segmented Neutrophils % 81.1 %
[2017-08-18 10:41] LABS: Alanine Aminotransferase 13 Units/L (7-52); Albumin 2.8 g/dL (3.5-5.7); Albumin/Globulin Ratio 0.9 (1.1-2.2); Alkaline Phosphatase 62 Units/L (34-104); Aspartate Amino Transferase 19 Units/L (13-39); BUN/Creatinine Ratio 19 (6-26); Bilirubin,Total 0.6 mg/dL (0.3-1.0); Blood Urea Nitrogen 12 mg/dL (8-23); Calcium 8.2 mg/dL (8.6-10.3); Carbon Dioxide 26 mEq/L (23-29); Chloride 100 mEq/L (98-107); Globulin 3.2 g/dL (2.4-3.5); Glucose 199 mg/dL (70-105); Osmolality,Calculated 279 (280-300); Sodium 132 mEq/L (136-145); eGFR For African Americans > 60 (> 60); eGFR For Non-African Americans > 60 (> 60)
[2017-08-18] MEDS: Aspirin 325 MG TABLET PO SCH ×2 (12:24→20:19)
[2017-08-18] MEDS ORDERED: Aminoglycoside Consult 1 EACH MC ONE (12:46)
[2017-08-18] MEDS: Mag Hydrox/Al Hydrox/Simeth 30 ML UDC PO PRN ×2 (14:25→22:43)
[2017-08-18] MEDS: Acetaminophen 325 MG TABLET PO PRN (14:25)
--- NOTE | 2017-08-18 14:59 | Podiatry Progress Note ---
Date of Encounter: 08/18/17 Time of Encounter: 12:00 - Assessment and Plan (1) Diabetic foot ulcer Current Visit: Yes Status: Chronic Assessment: #1 we appreciate soft tissue injury secondary to cold injury with ulceration secondary to blistering dorsal aspect of his right foot from the second MTPJ to the midfoot in oblique fashion approximately 6 cm in length 2 cm in width partial thickness-also appreciate unstageable full-thickness soft tissue injury in the plantar aspect of the right great toe as far proximal as the distal first metatarsal. The distal aspect of the right great toe spared but certainly is pallorous in nature and again secondary to cold injury. There is associated cellulitis of the right foot and ankle leg with this injury. Blister to dorsal aspect of foot has deroofed and there is darkening of tissue of toe #1 along medial border as compared to 08/17 assessment #2 frostbite right foot #3 diabetes with angiopathy neuropathy. #4 multiple comorbidities as outlined in history. Plan: #1 recommend local wound care every 12 hours as ordered- adaptic , 4x4 and kerlex- changed at bedside #2 keep right limb is warm as possible #3 Non invasive studies completed - prelim- Left 0.82 right 0.77- awaiting vascular recommendations- appreciated #3 agree with present antibiotics therapy - current wound culture preliminary Group B strep- monitor creatinine and kidney function because of use of vancomycin presently #4 Blood cultures pending #5 patient may need formal debridement depending upon demarcation of the wound with possibility of loss of digits depending upon response to treatment . Qualifiers: Diabetic foot ulcer location: unspecified part of foot Diabetes mellitus type: type 2 Laterality: right Non-pressure ulcer stage: unspecified non- pressure ulcer stage Qualified Code(s): E11.621 - Type 2 diabetes mellitus with foot ulcer; L97.519 - Non-pressure chronic ulcer of other part of right foot with unspecified severity; L97.519 - Non-pressure chronic ulcer of other part of right foot with unspecified severity; L97.519 - Non-pressure chronic ulcer of other part of right foot with unspecified severity; L97.519 - Non- pressure chronic ulcer of other part of right foot with unspecified severity Subjective Interval history: We are following in regards to probable lizarraga bite injury to right great toe, toe #2 and dorsal aspect of foot. Patient resting comfortably on arrival. Foot wrapped in blanket with warm pack. Patient denies any pain at this time however states he has hiccups that he has had for 3 days straight. Patient receiving antibiotic therapy. Admitting wbc 21.1/today 16.3 Temp 99.6. Objective - Vital Signs Vital Signs: Vital Signs Temp Pulse Resp BP Pulse Ox 08/18/17 11:54 99.6 F 71 16 141/70 98 08/18/17 07:59 98.6 F 73 17 123/61 98 08/18/17 03:00 98.2 F 84 16 126/72 98 08/17/17 20:00 98.1 F 86 16 121/69 98 08/17/17 16:35 98.7 F 92 17 135/71 97 Intake and Output 08/17/17 08/18/17 08/18/17 23:59 07:59 15:59 Intake Total 450 / 450 1200 / 1200 Output Total 1000 / 1000 150 / 150 Balance 450 / 450 200 / 200 -150 / -150 Intake: IV Fluids 450 / 450 1200 / 1200 0.9 % Sodium Chloride 1,000 ML 1000 / 1000 @ 50 mls/hr IVC .Q20H TJ Rx#: [id number] Zosyn Premix 3.375 GM/200 ML 3. 200 / 200 200 / 200 375 gm In 200 ml @ 50 mls/hr IVPB Q8H TJ Rx#:[id number] Vancocin 1,000 MG In Dextrose 5 250 / 250 % 250 ML @ 167 mls/hr IVPB Q12H TJ Rx#:[id number] Output: Urine 1000 / 1000 150 / 150 Other: # Voids 1 Weight 80.7 kg Blood Glucose* 301 170 221 Patient Weight 08/18/17 23:59 Weight 80.7 kg - Exam Exam: Awake alert and oriented Pulses to signal DP/PT Minimal sensation to light/moderate touch due to hx of peripheral neuropathy Skin warm from toes to tibia of toes #3 #4 #5, Toes #1 and #2 cool to touch There is intact cap refill to toes #3 #4 #5, #1 #2 has no cap refill, pallor noted to distal aspect of toe #1 which is spared deep tissue trauma at this time Foul odor noted There is Deep tissue skin injury to toe #2. There was a blister along dorsal aspect of foot which has deroofed since previous assessment revealing a 5cmx2.5cm ulceration with 100% healthy granulation tissue to base. There is deep tissue injury to plantar aspect of toe #2 and mid toe #1 extending to proximal area of MT head #1 medial aspect aspect. -This area is starting to de- roof at the level of the great toe- will continue to monitor skin sloughing. There is cellulitis and warmth extending from the dorsum of the foot to ankle. No calf pain with manual compression Muscle strength /5 - Lab Result Diagrams: 08/18/17 10:05 08/18/17 10:05 Labs: Abnormal lab results WBC 16.3 K/mcL (4.3-11.1) H 08/18/17 10:05 RBC 4.09 M/mcL (4.19-5.50) L 08/18/17 10:05 Hgb 11.7 g/dL (12.9-16.9) L 08/18/17 10:05 Hct 35.5 % (37.5-50.1) L 08/18/17 10:05 Neutrophils # 13.2 K/mcL (1.6-8.9) H 08/18/17 10:05 Monocytes # 1.4 K/mcL (0.0-1.3) H 08/18/17 10:05 ESR >= 130 mm/hr (0-10) H 08/16/17 17:22 PT 12.5 Seconds (9.4-12.1) H 08/16/17 17:22 VBG pO2 21 mmHg (25-50) L 08/16/17 18:06 Sodium 132 mEq/L (136-145) L 08/18/17 10:05 Creatinine 0.64 mg/dL (0.70-1.30) L 08/18/17 10:05 Glucose 199 mg/dL (70-105) H 08/18/17 10:05 POC Glucose 170 (58-89) H 08/18/17 07:14 Calculated Osmolality 279 (280-300) L 08/18/17 10:05 Calcium 8.2 mg/dL (8.6-10.3) L 08/18/17 10:05 C-Reactive Protein 252 mg/L (Less than 10) H 08/16/17 17:22 Serum Total Protein 6.0 g/dL (6.4-8.9) L 08/18/17 10:05 Albumin 2.8 g/dL (3.5-5.7) L 08/18/17 10:05 Albumin/Globulin Ratio 0.9 (1.1-2.2) L 08/18/17 10:05 Beta-Hydroxybutyric Acd 1.28 mmol/L (0.02-0.27) H 08/16/17 17:51 Ur Specific [place] > 1.030 (1.010-1.025) H 08/16/17 17:54 Urine Glucose (UA) >=1000 mg/dL (Normal) H 08/16/17 17:54 Urine Ketones 15 mg/dL (Negative) H 08/16/17 17:54 Vancomycin Trough 7.2 mcg/mL (10-20) L 08/18/17 04:59 - VTE Documentation of Mechanical Device: Intermittent pneumatic compression device Consult Discharge Plan - Plan Referrals: Aditya Espinoza Jr, MD [Primary Care Provider] -
--- NOTE | 2017-08-18 15:20 | Internal Med Progress Note ---
Date of Encounter: 08/18/17 Time of Encounter: 09:30 - Assessment and plan (1) Diabetic foot ulcer Current Visit: Yes Status: Chronic Assessment and plan: Continue IV Abx Await podiatry assessment concern for frostbite Pain well tolerated most likely due to neuropathy 08/18/17 in the setting of acute frostbite appreciate podiatry follow-up continue current antibiotics. Potentially can take off vancomycin will consult vascular surgery and check MILTON before potential debridement Qualifiers: Diabetic foot ulcer location: unspecified part of foot Diabetes mellitus type: type 2 Laterality: right Non-pressure ulcer stage: unspecified non- pressure ulcer stage Qualified Code(s): E11.621 - Type 2 diabetes mellitus with foot ulcer; L97.519 - Non-pressure chronic ulcer of other part of right foot with unspecified severity; L97.519 - Non-pressure chronic ulcer of other part of right foot with unspecified severity; L97.519 - Non-pressure chronic ulcer of other part of right foot with unspecified severity; L97.519 - Non- pressure chronic ulcer of other part of right foot with unspecified severity (2) Diabetes mellitus type II, non insulin dependent Current Visit: No Status: Chronic Assessment and plan: maintain tight glycemic control Accuchecks AC and HS SSI (3) Cellulitis Current Visit: Yes Status: Acute Assessment and plan: Continue antibiotics and will monitor for improvement unfortunately patient did not let me examine him today I will try to repeat exam later on tonight-if possible Qualifiers: Site of cellulitis: extremity Site of cellulitis of extremity: lower extremity Laterality: left Qualified Code(s): L03.116 - Cellulitis of left lower limb (4) Unspecified essential hypertension Current Visit: Yes Status: Chronic Assessment and plan: Stable. COntinue to monitor - Time Spent With Patient 25 - 35 minutes - Subjective Interval history: Pain is improved overall. He still feels that sometimes he gets a tingling and numbness in his right foot especially when his Legs are dangling down - Constitutional Vitals: Temp Pulse Resp BP Pulse Ox 99.6 F 71 16 141/70 98 08/18/17 11:54 08/18/17 11:54 08/18/17 11:54 08/18/17 11:54 08/18/17 11:54 General appearance: Present: A&O X 3, answers questions appropriately Exam: General , Alert , oriented, HEENT- PERRLA. EOMI CVS- S1S2 N, No Murmurs, Rubs, gallops, No JVD RS- CTA Bilaterally. No rales no Rhonchi heard Abdomen- Soft NT ND, bowel sounds heard across all 4 quadrants Neuro- CN 2-12 intact, Motors- power 5/5 UE, 5/5 LE Bilaterally, Sensations intact Extremeties- right foot bandaged. Band is not removed due to patient preference Internal Medicine: Result - Labs CBC & Chem 7: 08/18/17 10:05 08/18/17 10:05 Labs: Short CBC 08/18/17 Range/Units 10:05 WBC 16.3 H (4.3-11.1) K/mcL Hgb 11.7 L (12.9-16.9) g/dL Hct 35.5 L (37.5-50.1) % Plt Count 234 (140-400) K/mcL Neutrophils # 13.2 H (1.6-8.9) K/mcL BMP 08/18/17 10:05 Sodium 132 L Potassium 4.0 Chloride 100 Carbon Dioxide 26 BUN 12 Creatinine 0.64 L Glucose 199 H Calcium 8.2 L Liver Function 08/18/17 Range/Units 10:05 Total Bilirubin 0.6 (0.3-1.0) mg/dL AST 19 (13-39) Units/L ALT 13 (7-52) Units/L Alkaline Phosphatase 62 (34-104) Units/L Albumin 2.8 L (3.5-5.7) g/dL - ABG Interpretation ABG results: PT/INR, D-dimer PT 12.5 Seconds (9.4-12.1) H 08/16/17 17:22 - VTE Documentation of Mechanical Device: Intermittent pneumatic compression device Consult Discharge Plan - Plan Referrals: Aditya Espinoza Jr, MD [Primary Care Provider] -
--- NOTE | 2017-08-18 20:10 | Vascular/Endovasc Consult Note ---
Date of Encounter: 08/18/17 Time of Encounter: 17:30 Assessment and Plan (1) Diabetic foot ulcer Current Visit: Yes Status: Acute Patient has ulceration and gangrenous changes of the left distal forefoot medially. Qualifiers: Diabetic foot ulcer location: unspecified part of foot Diabetes mellitus type: type 2 Laterality: right Non-pressure ulcer stage: unspecified non- pressure ulcer stage Qualified Code(s): E11.621 - Type 2 diabetes mellitus with foot ulcer; L97.519 - Non-pressure chronic ulcer of other part of right foot with unspecified severity; L97.519 - Non-pressure chronic ulcer of other part of right foot with unspecified severity; L97.519 - Non-pressure chronic ulcer of other part of right foot with unspecified severity; L97.519 - Non- pressure chronic ulcer of other part of right foot with unspecified severity (2) Atherosclerotic PVD with ulceration Current Visit: No Status: Chronic Patient has nonpalpable pulses bilaterally with an ankle-brachial index of approximately 0.8 on the right and 0.77 on the left. The patient may proceed with any podiatric intervention as deemed appropriate by the podiatry service. It is clear that he has chronic tibial occlusive disease as evidenced by his left leg surgery in [address] Chen. Due to the presence of the aggressive lesions on the left foot the patient may proceed with surgery. Vascular surgery will follow the patient for any signs of deterioration or inhibition of wound healing. Qualifiers: Peripheral atherosclerosis location: lower extremity Peripheral atherosclerosis artery type: [place] artery Lower extremity ulceration location : other part of foot Laterality: left Qualified Code(s): I70.245 - Atherosclerosis of [place] arteries of left leg with ulceration of other part of foot (3) Congestive heart failure Current Visit: No Status: Chronic Patient has history of systolic congestive heart failure with estimated ejection fraction of 15-20%. Qualifiers: Congestive heart failure type: systolic Congestive heart failure chronicity : chronic Qualified Code(s): I50.22 - Chronic systolic (congestive) heart failure - History of Present Illness Consult date: 08/18/17 Consult reason: Left foot diabetic ulcers Chief complaint: Left foot ulcers History of present illness: Mr. Villalpando is a 66 year old male Was admitted 2 days ago via the emergency room because of infected diabetic foot wound and sepsis. He was treated with multiple antibiotics and fluid resuscitated. His initial white count was 21,000. He is also being evaluated by podiatry because of the left foot lesions. This part of his evaluation basket surgery was asked to see the patient as well because of his known history of vascular disease. He is status post left tibial endarterectomy in December [address] Chen for nonhealing left foot wound. He went on to have healing of the wound but also required amputation of his left fifth toe. He was last seen in the vascular surgery clinic by Dr. Chen in July 2016. The patient states that he "froze" his foot in the recent cold weather. Due to his diabetic neuropathy he cannot feel his hands in his toes and was unaware of the injury to the foot. He noted a blister formed at the junction between the left first toe and forefoot. This went on to spontaneously rupture and a reddish bloody fluid drained from this wound. The wound has progressed since that time and then he was admitted to the hospital. Today noninvasive testing shows an ankle-brachial index of 0.82 on the right and 0.77 on the left. The patient has multiple risk factors for vascular disease. As noted above he is a diabetic. He also has a history of hypertension as well as congestive heart failure, hyperlipidemia, previous left lower extremity surgery, and previous open heart bypass grafting with aortic valve replacement and pacemaker placement in 2003 at [facility]. Past Med Surg Social Fam HX - Past Medical History Medical history: CHF, diabetes, hyperlipidemia, hypertension, peripheral artery disease, valvular heart disease Psychiatric history: no psych history - Past Surgical History Surgical History: coronary bypass (CABG), heart valve replacement (2003 at [facility] by Dr. Mensah), pacemaker/AICD, vascular surgery ( Left tibial artery endarterectomy by Dr. Chen in December 2015), AICD, pacemaker - Social History Smoking Status: Former smoker Smokeless Tobacco Status: Yes Alcohol use: none Drug use: none - Family History Mother Adopted: No Living Status: Still Living Hx Family Cardiac Disorders: Yes Father Living Status: Medications and Allergies Enalapril Maleate [Vasotec] 10 mg PO BID 12/17/15 [History] Furosemide [Lasix] 20 mg PO DAILY 12/17/15 [History] Simvastatin [Zocor] 40 mg PO QPM 12/17/15 [History] SitaGLIPtin [Januvia] 100 mg PO DAILY 12/17/15 [History] Sotalol [Betapace] 80 mg PO Q12HR 12/17/15 [History] Spironolactone [Aldactone] 25 mg PO BID 12/17/15 [History] glipiZIDE [Glipizide] 10 mg PO DAILY 12/17/15 [History] metFORMIN [Glucophage] 1,000 mg PO BIDWM 12/17/15 [History] Aspirin 325 mg PO BID 01/11/16 [History] Carvedilol [Coreg] 6.25 mg PO BID 08/17/17 [History] 3 Allergy/AdvReac Type Severity Reaction Status Date / Time codeine Allergy Rash Verified 08/16/17 16:07 All Systems Review: A 10-system review of systems was performed and is negative for pertinent findings except as documented above in the HPI. Exam Vital Signs, Last 4 Hours Temp Pulse Resp BP Pulse Ox 08/18/17 18:47 98.4 F 78 17 111/58 97 General: Present: Conversant, No Apparent Distress, Well developed, Well nourished HEENT: Present: Atraumatic, Normocephaly, Trachea midline Neck: Present: Left Carotid bruit. Absent: JVD, Right Carotid bruit, Midline deformity, Tracheal deviation Cardiac: Present: Reg Rate and Rhythm, Normal S1 and S2, Other (Loud aortic murmur. Across precordium at 3/6) Lungs: Present: Normal Breath Sounds Neuro: Present: Alert and responsive, No focal deficits noted Abdomen: Present: Soft, Non-tender. Absent: Masses Vascular: Present: Pulse, absent (The patient has no palpable pedal pulses), Pulse, normal (The patient has palpable femoral and popliteal pulses bilaterally.), Amputation(s) (Patient is status post left fifth toe amputation) Skin: Present: Wound/ulcer(s) (Patient has blackish discoloration on the distal medial aspect of the left forefoot and diffuse cyanosis of the left second toe. There is a sloughing wound over the dorsum of the distal left forefoot at the base of the left second toe that measures approximately 4 x 2 cm. There is a reddish streaking along the foot to the region of the ankle. There is no crepitus. I can express no crepitus. There is no malodor to the left foot.) Consult Discharge Plan - Plan Referrals: Aditya Espinoza Jr, MD [Primary Care Provider] - Micheal Chen MD [Partnered Physician] - (Call vascular surgery clinic for appointment)
[2017-08-19] MEDS: *HR* Heparin 5,000 UNIT/ML VIAL SQ SCH ×2 (05:22→17:48)
[2017-08-19] MEDS: Piperacillin/Tazobactam 3.375 GM/200 ML BAG IVPB SCH ×4 (05:26→22:36)
[2017-08-19] MEDS: Aspirin 325 MG TABLET PO SCH ×2 (07:52→22:35)
[2017-08-19] MEDS: Acetaminophen 325 MG TABLET PO PRN (07:52)
[2017-08-19] MEDS: Insulin LISPRO 300 UNITS/3 ML VIAL SQ SCH ×4 (07:54→22:35)
--- NOTE | 2017-08-19 07:55 | Electrocardiograph Report ---
[address] [address] Test Date: 2017-08-16 Pat Name: Timothy Villalpando Department: 102 Room: [facility] Gender: M Lens Assistant: Tmr : 1950 Requested By: Stephanie Marlow Order Number: [id number] Reading MD: Ceferino Alves MD Measurements Intervals [place] Rate: 113 P: 255 ME: 160 QRS: 226 QRSD: 169 T: 72 QT: 407 QTc: 474 Interpretive Statements ELECTRONIC VENTRICULAR PACEMAKER Electronically Signed On 08-19-2017 6:44:44 EST by Ceferino Alves MD
--- NOTE | 2017-08-19 12:45 | Podiatry Progress Note ---
Date of Encounter: 08/19/17 Time of Encounter: 12:00 - Assessment and Plan (1) Diabetic foot ulcer Current Visit: Yes Status: Acute Assessment: #1 we appreciate soft tissue injury secondary to cold injury with ulceration secondary to blistering dorsal aspect of his right foot from the second MTPJ to the midfoot in oblique fashion approximately 6 cm in length 2 cm in width partial thickness-also appreciate unstageable full-thickness soft tissue injury in the plantar aspect of the right great toe as far proximal as the distal first metatarsal. The distal aspect of the right great toe spared but certainly is pallorous in nature and again secondary to cold injury. There is associated cellulitis of the right foot and ankle leg with this injury. Blister to dorsal aspect of foot has deroofed and there is darkening of tissue of toe #1 along medial border as compared to 08/17 assessment. There is now a serous filled fluid blister along dorsal aspect of toe #1 extending to toe #2 with maceration between webspaces of toes #1 and #2. #2 frostbite right foot #3 diabetes with angiopathy neuropathy. #4 multiple comorbidities as outlined in history. Plan: #1 recommend local wound care every 12 hours as ordered- adaptic , 4x4 and kerlex- changed at bedside #2 keep right limb is warm as possible #3 Non invasive studies completed- per vascular OK to precede with intervention as necessary #4 with plan for I&D of wound and removal of devitalized tissue with tomorrow 08/20/17- at bedside to discuss plan with patient, verbalizes understanding and agreeable to plan. Patient will be NPO after midnight #3 agree with present antibiotics therapy - current wound culture preliminary Group B strep- monitor creatinine and kidney function because of use of vancomycin presently #4 Blood cultures pending #5 Please obtain CBC and chem tomorrow AM. Qualifiers: Diabetic foot ulcer location: unspecified part of foot Diabetes mellitus type: type 2 Laterality: right Non-pressure ulcer stage: unspecified non- pressure ulcer stage Qualified Code(s): E11.621 - Type 2 diabetes mellitus with foot ulcer; L97.519 - Non-pressure chronic ulcer of other part of right foot with unspecified severity; L97.519 - Non-pressure chronic ulcer of other part of right foot with unspecified severity; L97.519 - Non-pressure chronic ulcer of other part of right foot with unspecified severity; L97.519 - Non- pressure chronic ulcer of other part of right foot with unspecified severity Subjective Interval history: We are following in regards to probable lizarraga bite injury to right great toe, toe #2 and dorsal aspect of foot. Patient resting comfortably on arrival. Foot wrapped in blanket with warm pack. Patient denies any pain at this time. Current temp 98.1, no WBC was obtained today. Patient denies any chills, n/v or flu like symptoms . Objective - Vital Signs Vital Signs: Vital Signs Temp Pulse Resp BP Pulse Ox 08/19/17 12:39 98.1 F 73 16 129/68 98 08/19/17 08:51 98 F 81 16 135/71 96 08/19/17 05:06 98.1 F 80 16 142/71 96 08/18/17 22:41 98.3 F 79 16 124/64 96 08/18/17 18:47 98.4 F 78 17 111/58 97 08/18/17 15:16 99.7 F H 95 16 123/64 96 Intake and Output 08/18/17 08/19/17 08/19/17 23:59 07:59 15:59 Intake Total 1260 / 1260 200 / 200 420 / 420 Output Total 650 / 650 325 / 325 400 / 400 Balance 610 / 610 -125 / -125 20 / 20 Intake: IV Fluids 1200 / 1200 200 / 200 0.9 % Sodium Chloride 1,000 ML 1000 / 1000 @ 50 mls/hr IVC .Q20H TJ Rx#: [id number] Zosyn Premix 3.375 GM/200 ML 3. 200 / 200 200 / 200 375 gm In 200 ml @ 50 mls/hr IVPB Q8H TJ Rx#:[id number] Oral 60 / 60 420 / 420 Output: Urine 650 / 650 325 / 325 400 / 400 Other: Meal Breakfast Percent of Meal Consumed 100% Blood Glucose* 258 229 250 - Exam Exam: Awake alert and oriented Pulses to signal DP/PT Minimal sensation to light/moderate touch due to hx of peripheral neuropathy Skin warm from toes to tibia of toes #3 #4 #5, Toes #1 and #2 cool to touch There is intact cap refill to toes #3 #4 #5, #1 #2 has no cap refill, pallor noted to distal aspect of toe #1 which is spared deep tissue trauma at this time Foul odor noted There is Deep tissue skin injury to toe #2. There was a blister along dorsal aspect of foot which has deroofed since previous assessment revealing a 5cmx2.5cm ulceration with 100% healthy granulation tissue to base. There is deep tissue injury to entire toe #2 and mid toe #1 extending to proximal area of MT head #1 medial aspect aspect. -This area is starting to de-roof at the level of the great toe- will continue to monitor skin sloughing. There is now a serous fluid filled blister extending from dorsal aspect of toe #1 to toe #2 with maceration and skin sloughing to webspace between toe #1 and #2. There is cellulitis and warmth extending from the dorsum of the foot to ankle, appearance of cellulitis has decreased slightly from 08/18 assessment. No calf pain with manual compression Muscle strength 11/28 - Lab Result Diagrams: 08/18/17 10:05 08/18/17 10:05 Labs: Abnormal lab results WBC 16.3 K/mcL (4.3-11.1) H 08/18/17 10:05 RBC 4.09 M/mcL (4.19-5.50) L 08/18/17 10:05 Hgb 11.7 g/dL (12.9-16.9) L 08/18/17 10:05 Hct 35.5 % (37.5-50.1) L 08/18/17 10:05 Neutrophils # 13.2 K/mcL (1.6-8.9) H 08/18/17 10:05 Monocytes # 1.4 K/mcL (0.0-1.3) H 08/18/17 10:05 ESR >= 130 mm/hr (0-10) H 08/16/17 17:22 PT 12.5 Seconds (9.4-12.1) H 08/16/17 17: VBG pO2 21 mmHg (25-50) L 08/16/17 18:06 Sodium 132 mEq/L (136-145) L 08/18/17 10:05 Creatinine 0.64 mg/dL (0.70-1.30) L 08/18/17 10:05 Glucose 199 mg/dL (70-105) H 08/18/17 10:05 POC Glucose 250 (58-89) H 08/19/17 11:36 Calculated Osmolality 279 (280-300) L 08/18/17 10:05 Calcium 8.2 mg/dL (8.6-10.3) L 08/18/17 10:05 C-Reactive Protein 252 mg/L (Less than 10) H 08/16/17 17:22 Serum Total Protein 6.0 g/dL (6.4-8.9) L 08/18/17 10:05 Albumin 2.8 g/dL (3.5-5.7) L 08/18/17 10:05 Albumin/Globulin Ratio 0.9 (1.1-2.2) L 08/18/17 10:05 Beta-Hydroxybutyric Acd 1.28 mmol/L (0.02-0.27) H 08/16/17 17:51 Ur Specific Dell > 1.030 (1.010-1.025) H 08/16/17 17:54 Urine Glucose (UA) >=1000 mg/dL (Normal) H 08/16/17 17:54 Urine Ketones 15 mg/dL (Negative) H 08/16/17 17:54 Vancomycin Trough 7.2 mcg/mL (10-20) L 08/18/17 04:59 - VTE Documentation of Mechanical Device: Intermittent pneumatic compression device Consult Discharge Plan - Plan Referrals: Aditya Espinoza Jr, MD [Primary Care Provider] - Micheal Chen MD [Partnered Physician] - (Call vascular surgery clinic for appointment)
[2017-08-19] MEDS: Mag Hydrox/Al Hydrox/Simeth 30 ML UDC PO PRN (14:03)
--- NOTE | 2017-08-19 14:36 | Internal Med Progress Note ---
Date of Encounter: 08/19/17 Time of Encounter: 09:30 - Assessment and plan (1) Diabetic foot ulcer Current Visit: Yes Status: Acute Assessment and plan: Continue IV Abx Await podiatry assessment concern for frostbite Pain well tolerated most likely due to neuropathy 08/18/17 in the setting of acute frostbite appreciate podiatry follow-up continue current antibiotics. Potentially can take off vancomycin will consult vascular surgery and check [place] before potential debridement 08/19/2017 appreciate podiatry and vascular surgery follow-up planning for OR tomorrow for debridement/amputation cleared by vascular surgery will keep NPO after midnight Qualifiers: Diabetic foot ulcer location: unspecified part of foot Diabetes mellitus type: type 2 Laterality: right Non-pressure ulcer stage: unspecified non- pressure ulcer stage Qualified Code(s): E11.621 - Type 2 diabetes mellitus with foot ulcer; L97.519 - Non-pressure chronic ulcer of other part of right foot with unspecified severity; L97.519 - Non-pressure chronic ulcer of other part of right foot with unspecified severity; L97.519 - Non-pressure chronic ulcer of other part of right foot with unspecified severity; L97.519 - Non- pressure chronic ulcer of other part of right foot with unspecified severity (2) Sepsis Current Visit: Yes Status: Resolved Assessment and plan: Sepsis is resolving at this point given the improvement in white count most likely etiology of sepsis as the frostbite and cellulitis around diabetic ulcer primitive cultures have grown strept continue current antibiotic coverage and follow plans from podiatry for potential surgery tomorrow Qualifiers: Sepsis type: Streptococcus, unspecified Qualified Code(s): A40.9 - Streptococcal sepsis, unspecified; A40 - Streptococcal sepsis (3) Diabetes mellitus type II, non insulin dependent Current Visit: No Status: Chronic (4) Cellulitis Current Visit: Yes Status: Acute Qualifiers: Site of cellulitis: extremity Site of cellulitis of extremity: lower extremity Laterality: left Qualified Code(s): L03.116 - Cellulitis of left lower limb (5) Unspecified essential hypertension Current Visit: Yes Status: Chronic - Subjective Interval history: Denies fevers or chills. Pain is tolerable. graded as 5/10 , sharp , intermittent in right foot, non radiating and not worsened w movements- relieved by pain medications - Constitutional Vitals: Temp Pulse Resp BP Pulse Ox 98.1 F 73 16 129/68 98 08/19/17 12:39 08/19/17 12:39 08/19/17 12:39 08/19/17 12:39 08/19/17 12:39 General appearance: Present: A&O X 3, answers questions appropriately Exam: General , Alert , oriented, not in any apparent distress HEENT- PERRLA. EOMI CVS- S1S2 N, No Murmurs, Rubs, gallops, No JVD RS- CTA Bilaterally. No rales no Rhonchi heard Abdomen- Soft NT ND, bowel sounds heard across all 4 quadrants Neuro- evidence of sensory deficit on both feet, CN 2-12 intact, Motors- power 5 /5 UE, 5/5 LE Bilaterally, Extremeties- right foot dorsal aspect, edema improving, right toe showing consistency with frostbite including discoloration and small ulcer will clean base at the base of the great toe Internal Medicine: Result - Labs CBC & Chem 7: 08/18/17 10:05 08/18/17 10:05 - ABG Interpretation ABG results: PT/INR, D-dimer PT 12.5 Seconds (9.4-12.1) H 08/16/17 17:22 - VTE Documentation of Mechanical Device: Intermittent pneumatic compression device Consult Discharge Plan - Plan Referrals: Aditya Espinoza Jr, MD [Primary Care Provider] - Micheal Chen MD [Partnered Physician] - (Call vascular surgery clinic for appointment)
--- NOTE | 2017-08-19 16:33 | Podiatry Progress Note ---
Date of Encounter: 08/19/17 Time of Encounter: 12:30 - Assessment and Plan (1) Diabetic foot ulcer Current Visit: Yes Status: Acute Assessment: #1 frostbite cold injury and demarcation of gangrene of the second toe right foot with necrosis of the plantar medial aspect of the right foot plantar first MTPJ. Complicated by diabetes Plan: #1 long discussion with patient concerning present clinical findings and diagnosis of frostbite with gangrene #2 would recommend a limited debridement of the right foot to determine extent of necrosis on the plantar medial aspect which would then give us a better perspective is to whether aggressive amputation of the distal forefoot would be appropriate or whether to allow it to demarcate further to allow adequate and appropriate level of amputation and attempt to spare the foot and give him a functional plantigrade foot versus below-knee amputation. This would also allow us to gain intraoperative cultures. It might be necessary to perform an amputation of the first and second toe but will try to avoid any amputation at this time unless absolutely necessary and that decision will be made intraoperatively. #3 if we can allow this to demarcate over time and prevent conversion from dry gangrene to wet gangrene we would have a better chance of limb salvage. Qualifiers: Diabetic foot ulcer location: unspecified part of foot Diabetes mellitus type: type 2 Laterality: right Non-pressure ulcer stage: unspecified non- pressure ulcer stage Qualified Code(s): E11.621 - Type 2 diabetes mellitus with foot ulcer; L97.519 - Non-pressure chronic ulcer of other part of right foot with unspecified severity; L97.519 - Non-pressure chronic ulcer of other part of right foot with unspecified severity; L97.519 - Non-pressure chronic ulcer of other part of right foot with unspecified severity; L97.519 - Non- pressure chronic ulcer of other part of right foot with unspecified severity Subjective Principal diagnosis: Frostbite right foot Interval history: Patient was admitted for cellulitis of the right foot and leg secondary to diabetic foot ulcer which was precipitated by cold injury/frostbite sustained several days prior to presentation. Cultures have revealed streptococcus. Blood cultures are negative. Presently afebrile without signs of sepsis. No chest pain nausea vomiting fever or chills. The second toe is beginning to demarcate as far as dry gangrene the plantar medial aspect of the first metatarsal phalangeal joint still with necrosis soft tissue that is unstageable. The cellulitis is resolving. Objective - Vital Signs Vital Signs: Vital Signs Temp Pulse Resp BP Pulse Ox 08/19/17 15:37 98 F 77 16 149/76 98 08/19/17 12:39 98.1 F 73 16 129/68 98 08/19/17 08:51 98 F 81 16 135/71 96 08/19/17 05:06 98.1 F 80 16 142/71 96 08/18/17 22:41 98.3 F 79 16 124/64 96 08/18/17 18:47 98.4 F 78 17 111/58 97 Intake and Output 08/19/17 08/19/17 08/19/17 07:59 15:59 23:59 Intake Total 200 / 200 620 / 620 Output Total 325 / 325 1075 / 1075 Balance -125 / -125 -455 / -455 Intake: IV Fluids 200 / 200 200 / 200 Zosyn Premix 3.375 GM/200 ML 3. 200 / 200 200 / 200 375 gm In 200 ml @ 50 mls/hr IVPB Q8H [facility] Rx#:[id number] Oral 420 / 420 Output: Urine 325 / 325 1075 / 1075 Other: Meal Breakfast Percent of Meal Consumed 100% Blood Glucose* 229 316 - Exam Exam: We observe demarcation of the second toe is now cyanotic completely to the level of the base of the toe/ web space. We observe unstageable necrotic tissue in the plantar medial aspect of the right foot which is more worrisome at this juncture. Cellulitis is resolving is receding from the leg to the level of the ankle. - Lab Result Diagrams: 08/18/17 10:05 08/18/17 10:05 Labs: Abnormal lab results WBC 16.3 K/mcL (4.3-11.1) H 08/18/17 10:05 RBC 4.09 M/mcL (4.19-5.50) L 08/18/17 10:05 Hgb 11.7 g/dL (12.9-16.9) L 08/18/17 10:05 Hct 35.5 % (37.5-50.1) L 08/18/17 10:05 Neutrophils # 13.2 K/mcL (1.6-8.9) H 08/18/17 10:05 Monocytes # 1.4 K/mcL (0.0-1.3) H 08/18/17 10:05 ESR >= 130 mm/hr (0-10) H 08/16/17 17:22 PT 12.5 Seconds (9.4-12.1) H 08/16/17 17:22 VBG pO2 21 mmHg (25-50) L 08/16/17 18:06 Sodium 132 mEq/L (136-145) L 08/18/17 10:05 Creatinine 0.64 mg/dL (0.70-1.30) L 08/18/17 10:05 Glucose 199 mg/dL (70-105) H 08/18/17 10:05 POC Glucose 316 (58-89) H 08/19/17 15:47 Calculated Osmolality 279 (280-300) L 08/18/17 10:05 Calcium 8.2 mg/dL (8.6-10.3) L 08/18/17 10:05 C-Reactive Protein 252 mg/L (Less than 10) H 08/16/17 17:22 Serum Total Protein 6.0 g/dL (6.4-8.9) L 08/18/17 10:05 Albumin 2.8 g/dL (3.5-5.7) L 08/18/17 10:05 Albumin/Globulin Ratio 0.9 (1.1-2.2) L 08/18/17 10:05 Beta-Hydroxybutyric Acd 1.28 mmol/L (0.02-0.27) H 08/16/17 17:51 Ur Specific [place] > 1.030 (1.010-1.025) H 08/16/17 17:54 Urine Glucose (UA) >=1000 mg/dL (Normal) H 08/16/17 17:54 Urine Ketones 15 mg/dL (Negative) H 08/16/17 17:54 Vancomycin Trough 7.2 mcg/mL (10-20) L 08/18/17 04:59 - VTE Documentation of Mechanical Device: Intermittent pneumatic compression device Consult Discharge Plan - Plan Referrals: Aditya Espinoza Jr, MD [Primary Care Provider] - Micheal Chen MD [Partnered Physician] - (Call vascular surgery clinic for appointment)
[2017-08-20 05:02] LABS: Basophils # 0.1 K/mcL (0.0-0.2); Basophils % 0.6 %; Eosinophils # 0.1 K/mcL (0.0-0.6); Eosinophils % 0.5 %; Hemoglobin 10.6 g/dL (12.9-16.9); Immature Granulocytes % 1.3 % (0-4); Lymphocytes # 2.2 K/mcL (0.6-4.6); Mean Corpuscular HGB Conc 33.1 g/dL (31.6-35.5); Mean Corpuscular Hemoglobin 28.6 pg (28.0-33.3); Mean Corpuscular Volume 86.3 fL (83.0-100.0); Monocytes # 1.2 K/mcL (0.0-1.3); Monocytes % 7.9 %; Platelet Count 297 K/mcL (140-400); Red Blood Count 3.71 M/mcL (4.19-5.50); Red Cell Distribution Width 12.8 % (11.5-14.5); Segmented Neutrophils % 75.7 %
[2017-08-20] MEDS: *HR* Heparin 5,000 UNIT/ML VIAL SQ SCH ×2 (05:34→18:06)
[2017-08-20 05:40] LABS: Alanine Aminotransferase 13 Units/L (7-52); Albumin 2.6 g/dL (3.5-5.7); Albumin/Globulin Ratio 0.8 (1.1-2.2); Alkaline Phosphatase 71 Units/L (34-104); Aspartate Amino Transferase 17 Units/L (13-39); BUN/Creatinine Ratio 13 (6-26); Bilirubin,Total 0.4 mg/dL (0.3-1.0); Blood Urea Nitrogen 8 mg/dL (8-23); Calcium 8.1 mg/dL (8.6-10.3); Carbon Dioxide 27 mEq/L (23-29); Chloride 102 mEq/L (98-107); Globulin 3.2 g/dL (2.4-3.5); Glucose 133 mg/dL (70-105); Osmolality,Calculated 282 (280-300); Potassium 3.8 mEq/L (3.5-5.1); Sodium 136 mEq/L (136-145); Total Protein 5.8 g/dL (6.4-8.9); eGFR For African Americans > 60 (> 60); eGFR For Non-African Americans > 60 (> 60)
[2017-08-20] MEDS: Piperacillin/Tazobactam 3.375 GM/200 ML BAG IVPB SCH ×3 (06:00→22:20)
[2017-08-20] MEDS ORDERED: chlorproMAZINE 25 MG TABLET PO PRN ×2 (06:32→17:53)
[2017-08-20] MEDS: Insulin LISPRO 300 UNITS/3 ML VIAL SQ SCH ×2 (08:00→11:16)
[2017-08-20] MEDS: Aspirin 325 MG TABLET PO SCH ×2 (08:19→22:39)
[2017-08-20] MEDS ORDERED: *HR* OxyCODONE/APAP 5/325 TABLET PO PRN ×3 (08:30→17:53)
[2017-08-20] MEDS ORDERED: *HR* Morphine 2 MG/ML SYRINGE IVP PRN ×2 (08:30→17:53)
--- NOTE | 2017-08-20 11:49 | Internal Med Progress Note ---
Date of Encounter: 08/20/17 Time of Encounter: 11:46 - Assessment and plan (1) Diabetic foot ulcer Current Visit: Yes Status: Acute Assessment and plan: Continue IV Abx Await podiatry assessment concern for frostbite Pain well tolerated most likely due to neuropathy 08/18/17 in the setting of acute frostbite appreciate podiatry follow-up continue current antibiotics. Potentially can take off vancomycin will consult vascular surgery and check [place] before potential debridement 08/19/2017 appreciate podiatry and vascular surgery follow-up planning for OR tomorrow for debridement/amputation cleared by vascular surgery will keep NPO after midnight 08/20/2017 awaits debridement/amputation per podiatry cleared from medical and vascular surgery for this procedure will keep him on single antibiotic regimen-likely de-escalate after the procedure Qualifiers: Diabetic foot ulcer location: unspecified part of foot Diabetes mellitus type: type 2 Laterality: right Non-pressure ulcer stage: unspecified non- pressure ulcer stage Qualified Code(s): E11.621 - Type 2 diabetes mellitus with foot ulcer; L97.519 - Non-pressure chronic ulcer of other part of right foot with unspecified severity; L97.519 - Non-pressure chronic ulcer of other part of right foot with unspecified severity; L97.519 - Non-pressure chronic ulcer of other part of right foot with unspecified severity; L97.519 - Non- pressure chronic ulcer of other part of right foot with unspecified severity (2) Sepsis Current Visit: Yes Status: Resolved Assessment and plan: Sepsis resolved most likely etiology of sepsis was the frostbite and cellulitis around diabetic ulcer wound cultures have grown strept continue current antibiotic coverage and follow plans from podiatry after surgery today Qualifiers: Sepsis type: Streptococcus, unspecified Qualified Code(s): A40.9 - Streptococcal sepsis, unspecified; A40 - Streptococcal sepsis (3) Diabetes mellitus type II, non insulin dependent Current Visit: No Status: Chronic Assessment and plan: maintain tight glycemic control Accuchecks AC and HS SSI (4) Cellulitis Current Visit: Yes Status: Acute Assessment and plan: Continue antibiotics monitor for improvement Qualifiers: Site of cellulitis: extremity Site of cellulitis of extremity: lower extremity Laterality: left Qualified Code(s): L03.116 - Cellulitis of left lower limb (5) Unspecified essential hypertension Current Visit: Yes Status: Chronic Assessment and plan: Stable. COntinue to monitor - Time Spent With Patient 25 - 35 minutes - Subjective Interval history: resting comfortably. I was made aware of increased pain in R foot. Was switched to oral opiates and pain is better now.4/10 , sharp, located in r great toe non radiating. denies fevers - Constitutional Vitals: Temp Pulse Resp BP Pulse Ox 98.1 F 69 18 127/72 97 08/20/17 11:34 08/20/17 11:34 08/20/17 11:34 08/20/17 11:34 08/20/17 11:34 General appearance: Present: A&O X 3, answers questions appropriately Exam: General , Alert , oriented, moderate distress HEENT- PERRLA. EOMI CVS- S1S2 N, No Murmurs, Rubs, gallops, No JVD RS- CTA Bilaterally. No rales no Rhonchi heard Abdomen- Soft NT ND, bowel sounds heard across all 4 quadrants Neuro- No Focal deficits appreciated, CN 2-12 intact, Motors- power 5/5 UE, 5/5 LE Bilaterally, Sensations intact Extremeties- right lower extremity and foot-dorsum of the right foot erythema seems to be improving right to bandaged and not removed due to patient preference Internal Medicine: Result - Labs CBC & Chem 7: 08/20/17 04:15 08/20/17 04:15 Labs: Short CBC 08/20/17 Range/Units 04:15 WBC 15.8 H (4.3-11.1) K/mcL Hgb 10.6 L (12.9-16.9) g/dL Hct 32.0 L (37.5-50.1) % Plt Count 297 (140-400) K/mcL Neutrophils # 12.0 H (1.6-8.9) K/mcL BMP 08/20/17 04:15 Sodium 136 Potassium 3.8 Chloride 102 Carbon Dioxide 27 BUN 8 Creatinine 0.61 L Glucose 133 H Calcium 8.1 L Liver Function 08/20/17 Range/Units 04:15 Total Bilirubin 0.4 (0.3-1.0) mg/dL AST 17 (13-39) Units/L ALT 13 (7-52) Units/L Alkaline Phosphatase 71 (34-104) Units/L Albumin 2.6 L (3.5-5.7) g/dL - ABG Interpretation ABG results: PT/INR, D-dimer PT 12.5 Seconds (9.4-12.1) H 08/16/17 17:22 - VTE Documentation of Mechanical Device: Intermittent pneumatic compression device Consult Discharge Plan - Plan Referrals: Aditya Espinoza Jr, MD [Primary Care Provider] - Micheal Chen MD [Partnered Physician] - (Call vascular surgery clinic for appointment)
--- NOTE | 2017-08-20 15:47 | Anesthesia Evaluation PreOp ---
Date of Encounter: 08/20/17 Time of Encounter: 15:44 - Past History Planned Operation: Right Foot Debridement Cardiac History: [place], CHF (EF 15-20%), HTN, Hyperlipidemia, Pacemaker/ICD ( inserted in 2003, replaced in 2011) Pulmonary History: Former smoker, COPD LIBRARY ASSISTANT History: CVA Other Medical History: Diabetes Type II Alcohol Use: none Drug use: none Medications and Allergies Enalapril Maleate [Vasotec] 10 mg PO BID 12/17/15 [History] Furosemide [Lasix] 20 mg PO DAILY 12/17/15 [History] Simvastatin [Zocor] 40 mg PO QPM 12/17/15 [History] SitaGLIPtin [Januvia] 100 mg PO DAILY 12/17/15 [History] Sotalol [Betapace] 80 mg PO Q12HR 12/17/15 [History] Spironolactone [Aldactone] 25 mg PO BID 12/17/15 [History] glipiZIDE [Glipizide] 10 mg PO DAILY 12/17/15 [History] metFORMIN [Glucophage] 1,000 mg PO BIDWM 12/17/15 [History] Aspirin 325 mg PO BID 01/11/16 [History] Carvedilol [Coreg] 6.25 mg PO BID 08/17/17 [History] 3 Allergy/AdvReac Type Severity Reaction Status Date / Time codeine Allergy Rash Verified 08/16/17 16:07 - Meds/Allergy Pre-op Review Medications Reviewed: Yes Allergies Reviewed: Yes Beta Blockers on Current Med List: Yes If Beta Blockers taken, Date/Time (Last Dose taken): 06:00 08/20/2017 Anesthesia Results - Labs 08/20/17 04:15 08/20/17 04:15 TTE LVEF 15-20% mild MR mild TR mod pulm htn Anesthesia Exam Vital Signs/O2 Sat, Most Current Temp Pulse Resp BP Pulse Ox 98.1 F 69 18 127/72 97 08/20/17 11:34 08/20/17 11:34 08/20/17 11:34 08/20/17 11:34 08/20/17 11:34 NPO (# of Hours): > 8 Hrs Pain Scale: 0 Pain Scale Used: Numeric (1 - 10) - HEENT Pupil (Motor): Pupils equal, EOMI Mallampati: II Teeth: Normal Oral Opening: Greater than 3 - LIBRARY ASSISTANT LOC: Oriented LIBRARY ASSISTANT Motor: Normal RUE, Normal LUE, Normal RLE, Normal LLE, Normal Face LIBRARY ASSISTANT Sensory: Normal: RUE, LUE, RLE, LLE, Face - Cardiac Rhythm: Regular Murmur: None JVD: No Carotid Bruit: No - Pulmonary Breath Sounds: bilateral Clear Respiratory Effort: Symmetrical Anesthesia Assess/Plan ASA Score: 4 Modified Lorrie Scale for Level of Consciousness: Cooperative, oriented, and tranquil Anesthetic Plan: MAC Autologous Blood: Yes Monitoring Plan: Standard Monitors Recovery Plan: Other
[2017-08-20] MEDS ORDERED: *HR* Propofol 200 MG/20 ML VIAL IVP ONE (16:18)
[2017-08-20] MEDS ORDERED: Bupivacaine/Clonidine Syringe 1 EACH SYRINGE ONE (16:18)
[2017-08-20] MEDS ORDERED: *HR* FentaNYL (PF) 100 MCG/2 ML VIAL ONE (16:18)
--- NOTE | 2017-08-20 17:13 | Orthopedic Operative Note ---
Date of procedure: 08/20/17 Pre-op diagnosis: Ischemic necrosis right foot secondary to frostbite Post-op diagnosis: same Procedure: 08/20/17 17:11 #1: Wound debridement right foot Implants: None Complications: None Anesthesia: MAC, local Local Anesthetics: 0.25% Sensorcaine HCL SubQ (cc) Surgeon: Lucas Toussaint Was there an podiatry assistant present: No Estimated blood loss (cc): 5 Tourniquet Time (Minutes): 0 Specimen: None Condition: stable Disposition: floor Procedure in Detail: 08/20/17 17:13 Details in summary of procedure. The patient was brought to surgical suite. A sign in procedure was was performed. Patient was then transferred the surgical table and positioned properly safely securely. The right foot was elevated on foam blocks. Warm blankets were placed about the patient. Anesthetic timeout was taken. Patient was then sedated. The right ankle was then prepped with alcohol 3 times. Ankle block was carried out without difficulty or complication. The right foot was then prepped and draped in usual sterile manner. Surgical timeout was taken. No tourniquet was used. Inspection of the right foot revealed ischemia of toes #1 plantarly from the web space proximally for 8 cm and around the medial aspect of the foot extending 4 cm. The second toe is dusky with cyanosis. Third toe has an immediate capillary rebound time. This wound is unstageable from the second toe into the first webspace extending dorsally to the second MTPJ. Skin slough extends proximally and laterally over the midportion of the fourth metatarsophalangeal joint and midportion of the fourth metatarsal. Discoloration/Cyanosis also extends into the medial longitudinal arch. Careful inspection and palpation revealed no fluctuance or abscess. The skin was debrided partial and full-thickness without revealing any sinus tract tunneling or undermining. Approximately 144 cm was debrided. The wound is regular in geographic pattern as approximately 12 cm in length and 12 cm in width. The wound was thoroughly debrided with pickup and scissor of all loose dermis as well as debrided with an ultrasonics Misonix debrider throughout. No active bleeding. The wound was thoroughly irrigated with warm saline multiple times. The right foot was then dressed with sterile Adaptic 4 x 4 fluffs and Kerlix without compression anchored with Medipore tape and stockinette. The patient tolerated the procedure well and was sent to holding room in good condition with vital signs stable estimated blood loss is negligible. We will allow this wound to demarcate and self-proclaimed over time. There is no clinical evidence to suggest occult abscess or wet gangrene. We have an unstageable ischemic necrosis thermal injury secondary to exposure to cold. This is complicated by his diabetes and peripheral vascular disease and cardiovascular disease. We will continue daily dressing changes and monitor closely. Patient can likely be discharged within 24 hours on oral antibiotics and home health care daily dressing changes. Patient is made aware of the fact that this is a staged procedure hopefully will be able to salvage much of his foot depending upon the extent of thermal injury that he sustained. Only the tincture of time will allow us to observe manifestation of this injury.
--- NOTE | 2017-08-20 17:25 | Anesthesia Evaluation Post Op ---
Date of Encounter: 08/20/17 Time of Encounter: 17:22 - Vital Signs Vital Signs: Vital Signs/O2 Sat, Most Current Temp Pulse Resp BP Pulse Ox 98.1 F 74 16 134/74 98 08/20/17 17:15 08/20/17 17:15 08/20/17 17:15 08/20/17 17:15 08/20/17 17:15 - Lungs Lungs: Clear Ascult./Percussion - Airway Airway: Non-obstructed - Cardiovascular Regular Rate - Mental Status Mental Status: Alert & Oriented, Answers Appropriately - Pain Pain Scale: 0 Pain Scale used: Numeric (1 - 10) - Nausea Vomiting Nausea Vomiting: Not Present - Hydration Hydration: NPO, Has not voided - Discharge PostOp Status: Transfer Patient to floor
[2017-08-20] MEDS ORDERED: Mag Hydrox/Al Hydrox/Simeth 30 ML UDC PO PRN (17:53)
[2017-08-20] MEDS ORDERED: Naloxone 0.4 MG/ML INJ IVP PRN (17:53)
[2017-08-20] MEDS ORDERED: D5% in Water 1,000 ML IVC PRN (17:53)
[2017-08-20] MEDS ORDERED: Dextrose Gel 15 GM/37.5 ML TUBE PO PRN ×2 (17:53)
[2017-08-20] MEDS ORDERED: Acetaminophen 325 MG TABLET PO PRN (17:53)
[2017-08-20] MEDS ORDERED: *HR* Dextrose 50 % in Water (Syg) 50 ML SYRINGE IVP PRN (17:53)
[2017-08-20] MEDS ORDERED: Insulin LISPRO 300 UNITS/3 ML VIAL SQ SCH (21:00)
--- NOTE | 2017-08-20 22:14 | Vascular/Endovas Progress Note ---
Date of Encounter: 08/20/17 Time of Encounter: 14:45 - Assessment and plan (1) Diabetes mellitus type II, non insulin dependent Current Visit: No Status: Chronic The patient has a history of PVD with ulceration. He has evidence of possible frostbite to his right foot. He is scheduled for debridement with podiatry today. (2) CAD (coronary artery disease) Current Visit: No Status: Acute Qualifiers: Coronary Disease-Associated Artery/Lesion type: bypass graft [place] vs. transplanted heart: [place] heart Associated angina: without angina Qualified Code(s): I25.810 - Atherosclerosis of coronary artery bypass graft(s) without angina pectoris (3) Atherosclerotic PVD with ulceration Current Visit: No Status: Chronic Qualifiers: Peripheral atherosclerosis location: lower extremity Peripheral atherosclerosis artery type: [place] artery Lower extremity ulceration location : other part of foot Laterality: left Qualified Code(s): I70.245 - Atherosclerosis of [place] arteries of left leg with ulceration of other part of foot (4) Unspecified essential hypertension Current Visit: Yes Status: Chronic - Subjective Interval history: The patient is comfortable and reports adequate pain control. He denies fevers or chills. He denies chest pain or shortness of breath. Vital Signs, Last 4 Hours Temp Pulse Resp BP Pulse Ox 08/20/17 21:50 98.2 F 81 14 132/80 97 - Physical Examination General: Present: Conversant, No Apparent Distress HEENT: Present: Pupils equal Cardiac: Present: Reg Rate and Rhythm Lungs: Present: Normal Breath Sounds Neuro: Present: Alert and responsive, No focal deficits noted, Motor nerves grossly intact, Sensory nerves grossly intact Abdomen: Present: Soft Skin: Present: Wound/ulcer(s) (Right foot with early skn necrosis and bullae) - VTE Documentation of Mechanical Device: Intermittent pneumatic compression device Results 08/20/17 04:15 08/20/17 04:15 Lab Results, Last 24 hours 08/20/17 08/20/17 04:15 04:15 WBC 15.8 H Hgb 10.6 L Hct 32.0 L Plt Count 297 Sodium 136 Potassium 3.8 Chloride 102 Carbon Dioxide 27 BUN 8 Creatinine 0.61 L Glucose 133 H Calcium 8.1 L Total Bilirubin 0.4 AST 17 ALT 13 Alkaline Phosphatase 71 Consult Discharge Plan - Plan Referrals: Aditya Espinoza Jr, MD [Primary Care Provider] - Micheal Chen MD [Partnered Physician] - (Call vascular surgery clinic for appointment)
[2017-08-21] MEDS: *HR* Heparin 5,000 UNIT/ML VIAL SQ SCH (05:42)
[2017-08-21] MEDS: Piperacillin/Tazobactam 3.375 GM/200 ML BAG IVPB SCH (05:42)
[2017-08-21 08:06] VITALS: BP 147/79
[2017-08-21] MEDS: Aspirin 325 MG TABLET PO SCH (08:54)
[2017-08-21] MEDS: Insulin LISPRO 300 UNITS/3 ML VIAL SQ SCH ×2 (08:57→14:04)
--- NOTE | 2017-08-21 09:49 | Physician Discharge Referral ---
Home Health/Hosp Referral Info Transfer to: Home Health Provider in Charge Post Discharge: Other - Diagnosis (1) Diabetic foot ulcer Status: Acute (2) Sepsis Status: Resolved (3) Diabetes mellitus type II, non insulin dependent Status: Chronic (4) Cellulitis Status: Acute (5) Unspecified essential hypertension Status: Chronic - Respiratory Orders Smoking Cessation: Smoking cessation has been advised. For more information, call the [employer] Quit Line at [phone]. - Dressing/Wound Care Site: Right foot wound Type of Dressing/Treatments w/Frequency: Adaptic 4 x 4 fluffs and Kerlix without compression anchored with Medipore tape and stockinette. DAILY - Services Needed Following services are medically necessary services: Nursing - Transfer Medications Home Medications: Enalapril Maleate [Vasotec] 10 mg PO BID 12/17/15 [History] Furosemide [Lasix] 20 mg PO DAILY 12/17/15 [History] Simvastatin [Zocor] 40 mg PO QPM 12/17/15 [History] SitaGLIPtin [Januvia] 100 mg PO DAILY 12/17/15 [History] Sotalol [Betapace] 80 mg PO Q12HR 12/17/15 [History] Spironolactone [Aldactone] 25 mg PO BID 12/17/15 [History] glipiZIDE [Glipizide] 10 mg PO DAILY 12/17/15 [History] metFORMIN [Glucophage] 1,000 mg PO BIDWM 12/17/15 [History] Aspirin 325 mg PO BID 01/11/16 [History] Carvedilol [Coreg] 6.25 mg PO BID 08/17/17 [History] Allergies/Adverse Reactions: 3 Allergy/AdvReac Type Severity Reaction Status Date / Time codeine Allergy Rash Verified 08/16/17 16:07 Certification: Further, I certify that my clinical findings support that this patient is homebound (i.e. absences from home require considerable and taxing effort and are for medical reasons or [employer] services or infrequently or short duration when for other reasons) because: Homebound Reason: Post-surgery restriction and or conditions limit ability to leave home Attestation: My signature below is to certify that this patient is under my care and that I, or nurse practitioner, or a physician's warehouse administrative assistant working with me, has a face-to -face encounter with this patient.
--- NOTE | 2017-08-21 10:00 | Discharge Summary ---
Date of Encounter: 08/21/17 Time of Encounter: 09:58 - Discharge Diagnosis (1) Diabetic foot ulcer Priority: Primary Status: Acute Qualifiers: Diabetic foot ulcer location: toe Diabetes mellitus type: type 2 Laterality: right Non-pressure ulcer stage: unspecified non-pressure ulcer stage Qualified Code(s): E11.621 - Type 2 diabetes mellitus with foot ulcer; L97.519 - Non-pressure chronic ulcer of other part of right foot with unspecified severity; L97.519 - Non-pressure chronic ulcer of other part of right foot with unspecified severity; L97.519 - Non-pressure chronic ulcer of other part of right foot with unspecified severity; L97.519 - Non-pressure chronic ulcer of other part of right foot with unspecified severity (2) Sepsis Priority: Secondary Status: Resolved Qualifiers: Sepsis type: Streptococcus, unspecified Qualified Code(s): A40.9 - Streptococcal sepsis, unspecified; A40 - Streptococcal sepsis (3) Diabetes mellitus type II, non insulin dependent Priority: Secondary Status: Chronic (4) Cellulitis Priority: Secondary Status: Resolved Qualifiers: Site of cellulitis: extremity Site of cellulitis of extremity: lower extremity Laterality: right Qualified Code(s): L03.115 - Cellulitis of right lower limb (5) Unspecified essential hypertension Priority: Secondary Status: Chronic - Discharge Medications Home Medications: Enalapril Maleate [Vasotec] 10 mg PO BID 12/17/15 [History] Furosemide [Lasix] 20 mg PO DAILY 12/17/15 [History] Simvastatin [Zocor] 40 mg PO QPM 12/17/15 [History] SitaGLIPtin [Januvia] 100 mg PO DAILY 12/17/15 [History] Sotalol [Betapace] 80 mg PO Q12HR 12/17/15 [History] Spironolactone [Aldactone] 25 mg PO BID 12/17/15 [History] glipiZIDE [Glipizide] 10 mg PO DAILY 12/17/15 [History] metFORMIN [Glucophage] 1,000 mg PO BIDWM 12/17/15 [History] Aspirin 325 mg PO BID 01/11/16 [History] Carvedilol [Coreg] 6.25 mg PO BID 08/17/17 [History] Allergies/Adverse Reactions: 3 Allergy/AdvReac Type Severity Reaction Status Date / Time codeine Allergy Rash Verified 08/16/17 16:07 Procedures/tests Complete & Pending: Procedures Performed prior 72 hours Category Date Time Status MILTON [EV ankle brachial index BI] Stat Y 08/18/17 09:52 Completed - Notes to Outpatient Provider Follow up on Wound healing in Podiatry clinic Follow up on Diabetes management as outpatient w PCP He is to complete 7 days Oral Augmentin course for wound infection Date of admission: 08/16/17 22:26 Primary care physician: Aditya Espinoza Jr, MD Consults: 08/18/17 09:52 Consult to Vascular Surgery [CONS] Routine Consulting Provider: Vascular Surgery Brenda Reason for Consult: Frostbite, DM w PAD Time Notified: 10:21 Call Completed: Yes - Patient Status Disposition: Home Health Service - Discharge Instructions Follow Up With: Aditya Espinoza Jr, MD [Primary Care Provider] - Micheal Chen MD [Partnered Physician] - (Call vascular surgery clinic for appointment) Lucas Toussaint DPM [Partnered Physician] - - Diet and Activity Activity: return to work once cleared by your PCP/specialist (Avoind weight bearing R Foot till seen by Specialist of Primary Doctor) Diet: diabetic diet Interval History: Pt is a 66 yo M w PMH of DM and PAD who was admitted with diagnosis of Acute Frostbite R Toe and complicated Diabetic ulcer with underlying PAD He also had cellulitis arond the dorsum of the foot on r side and was also in sepsis due to combination of above factors on admission He was evaluated by Podiatry and Vascular surgery and cleared for debridement which was performed under anesthesia on 08/20/17 Podiatry is planning on doing a staged treatment for his toe wound in an effort to salvage as much as pssible He was maintained on IV zosyn while inhouse and will be transitioned to PO augmentin 875 BID for 7 more days Wound care has constantino arranged and instructions provided for wound care CM made aware. We will also arrange for follow up w Dr Espinoza and Dr Toussaint for outpatient follow up Hospital course: Mr. Villalpando is a 66 year old M w PMH of DM and PAD who was admitted with diagnosis of Acute Frostbite R Toe and complicated Diabetic ulcer with underlying PAD He also had cellulitis arond the dorsum of the foot on r side and was also in sepsis due to combination of above factors on admission He was evaluated by Podiatry and Vascular surgery and cleared for debridement which was performed under anesthesia on 08/20/17 Podiatry is planning on doing a staged treatment for his toe wound in an effort to salvage as much as pssible His wund culture grew Strep and blood cultures were NGTD He was maintained on IV zosyn while inhouse and will be transitioned to PO augmentin 875 BID for 7 more days Wound care has constantino arranged and instructions provided for wound care CM made aware. We will also arrange for follow up w Dr Espinoza and Dr Toussaint for outpatient follow up - Time Spent with Patient Total time spent providing and/or coordinating discharge services: Greater than 30 minutes - Constitutional Vitals: Temp Pulse Resp BP Pulse Ox 98.7 F 73 15 147/79 95 08/21/17 07:54 08/21/17 07:54 08/21/17 07:54 08/21/17 07:54 08/21/17 07:54 General appearance: Present: A&O X 3, answers questions appropriately Exam: Alert .oriented X3 HEENT- PEERLA EOMI CVS- S2S2 Normal no R/M/G RS- CTA B Abdomen- S/NT/ND Extremities- Left foot s/p little toe amputation- old Right FOot bandaged post procedure- not removed due to patient preference - VTE Documentation of Mechanical Device: Intermittent pneumatic compression device
== END 2017-08-21 16:17 | disposition home health service (06) | DRG 872 ==
LOC: 2SOUTHHOLD 15:54 → EMEROO 15:54 → 2SOUTHHOLD 21:33 → SUATTDRO 22:26 → 3ANU 08-19 17:23
PROVIDERS: ADMIT Internal Medicine; ATTEND Internal Medicine

== ENCOUNTER 2017-10-14 16:19 | Inpatient (IN) ==
--- NOTE | 2017-10-14 17:54 | Podiatry History & Physical ---
History of Present Illness Chief complaint: Gangrene right foot HPI: Mr. Villalpando is a 67 year old male presents today with dry gangrene of the right foot which is now demarcated. Patient is in need of amputation of the right foot for limb salvage. Patient was informed to heal and need undergo transmetatarsal amputation in attempt to salvage his limb. He has a long history of vascular disease with intervention per Dr. Chen. She history of diabetes lab-[id number] coronary bypass grafting with, aortic valve replacement hypertension AICD placement. He was admitted July this year approximately 8 weeks ago with a three-day history of fever chills nausea vomiting with what he believes to be flulike symptoms when in fact he sustained a frostbite injury now with gangrene of the right foot. The foot is been observed over the last 8 weeks for to demarcate to the point where we can now attempt limb salvage. All Systems Reviewed: The remainder of the systems were reviewed and are negative Past Med Surg Social Fam HX - Past Medical History Medical history: CHF, diabetes, hyperlipidemia, hypertension, peripheral artery disease, valvular heart disease Psychiatric history: no psych history - Past Surgical History Surgical History: coronary bypass (CABG), heart valve replacement, pacemaker/ AICD, vascular surgery, AICD, pacemaker - Social History Smoking Status: Former smoker Smokeless Tobacco Status: No Alcohol use: none Drug use: none - Family History Mother Adopted: No Living Status: Still Living Hx Family Cardiac Disorders: Yes Hx Family Endocrine Disorder: Yes Father Living Status: Hx Family Cardiac Disorders: Yes Medications and Allergies Enalapril Maleate [Vasotec] 10 mg PO BID 12/17/15 [History] Furosemide [Lasix] 20 mg PO DAILY 12/17/15 [History] Simvastatin [Zocor] 40 mg PO QPM 12/17/15 [History] SitaGLIPtin [Januvia] 100 mg PO DAILY 12/17/15 [History] Sotalol [Betapace] 80 mg PO Q12HR 12/17/15 [History] Spironolactone [Aldactone] 25 mg PO BID 12/17/15 [History] glipiZIDE [Glipizide] 10 mg PO DAILY 12/17/15 [History] metFORMIN [Glucophage] 1,000 mg PO BIDWM 12/17/15 [History] Aspirin 325 mg PO BID 01/11/16 [History] Carvedilol [Coreg] 6.25 mg PO BID 08/17/17 [History] Amoxicillin/Clavulanate [Augmentin] 875 mg PO BIDWM #14 tablet 08/21/17 [Rx] Oxycodone HCl [Oxaydo] 5 mg PO Q6H PRN #15 tab 08/21/17 [Rx] 3 Allergy/AdvReac Type Severity Reaction Status Date / Time codeine Allergy Rash Verified 08/16/17 16:07 Physical Exam - Constitutional Vitals: Temp Pulse Resp BP Pulse Ox 98.7 F 114 17 126/82 97 10/14/17 16:33 10/14/17 16:33 10/14/17 16:33 10/14/17 16:33 10/14/17 16:33 General appearance: average body habitus, cooperative - Head Head exam: Present: atraumatic - Eye Eye exam: Present: PERRL Pupils: Present: normal accommodation - Expanded Lower Extremities Exam Foot/Toe exam: Present: swelling (Patient exhibits dry gangrene involving toes # 123 and the distal medial forefoot dorsally and plantarly.) - Neurological Exam Additional comments: Patient exhibits loss of protective sensation, 2 point discrimination light touch and vibration consistent with diabetic peripheral sensory neuropathy. - Vascular Capillary Refill: less than 3 seconds (Toes #4 and 5 right foot) Lower Extremity Vascular: pulse deficit, sensory deficit Results - Labs Labs: All other labs normal. Assessment and Plan (1) Gangrene of right foot Current visit: Yes Status: Acute Assessment: #1 gangrene involving the right forefoot including toes #12 and 3. Toes #45 or spared but certainly are not functional. #2 multiple comorbidities including diabetes with angiopathy neuropathy #3 history of cardiovascular disease stable Plan: #1 admit for intravenous antibiotics #2 patiently to undergo transmetatarsal amputation with primary closure, if possible with enough soft tissue coverage if not we will resort to using wound VAC. #3 request internal medicine evaluation and management of his diabetes and cardiovascular disease #4 discussed the risks versus benefits as well as alternatives to surgical intervention with the patient in terms all can understand. Patient voices comprehension. Patient ample opportunity ask questions about planned procedure and the risks involved which include infection bleeding pain loss of foot leg or life need for further surgery, failure proceeded to produce desired results. Persistent pain. Patient voices comprehension agrees to plan of care.
[2017-10-14 19:13] LABS: INR 1.2; Prothrombin Time 12.5 Seconds (9.4-12.1)
[2017-10-14 19:19] LABS: BUN/Creatinine Ratio 29 (6-26); Blood Urea Nitrogen 22 mg/dL (8-23); C-Reactive Protein 17 mg/L (Less than 10); Calcium 9.7 mg/dL (8.6-10.3); Carbon Dioxide 29 mEq/L (23-29); Chloride 101 mEq/L (98-107); Glucose 194 mg/dL (70-105); Osmolality,Calculated 289 (280-300); Potassium 4.7 mEq/L (3.5-5.1); Sodium 135 mEq/L (136-145); eGFR For African Americans > 60 (> 60); eGFR For Non-African Americans > 60 (> 60)
--- NOTE | 2017-10-14 19:20 | Internal Medicine Consult Note ---
Date of Encounter: 10/15/17 Time of Encounter: 23:00 - Assessment and Plan (1) Gangrene of right foot Current Visit: Yes Status: Acute Assessment and plan: Patient has been seen by Dr. Toussaint of podiatry Defer antibiotics to podiatry. Patient has already been started on Zosyn. Consider infectious disease consultation. Patient is planned for patient for amputation tomorrow, history of atherosclerotic disease will suggest cardiology consultation for preoperative risk stratification given multiple risk factors (per patient report prior CVA, insulin-dependent diabetes, hypertension, systolic CHF, defibrillator/pacemaker antiarrhythmic therapy) At this time patient is hemodynamically stable. Currently patient's afebrile, no leukocytosis, normotensive. Continue close observation for development of any signs of sepsis. (2) PVD (peripheral vascular disease) Current Visit: Yes Status: Chronic Assessment and plan: Patient has been evaluated by vascular surgery on last admission. Patient has known to have occlusive peripheral vascular disease. Patient has amputation of left foot fourth and fifth toes due to diabetic ulcer per in the past. Continue aspirin therapy (3) Insulin dependent diabetes mellitus Current Visit: Yes Status: Acute Assessment and plan: Patient notes he was recently started on insulin by his primary care physician, previously on oral hypoglycemics. Patient unclear of actual dose or type of insulin. Start insulin sliding scale, check hemoglobin A1c Adjust insulin therapy as needed (4) Unspecified essential hypertension Current Visit: No Status: Chronic Assessment and plan: Continue antihypertensives (5) Anemia Current Visit: Yes Status: Chronic Assessment and plan: Unclear etiology. Patient currently denies any blood loss. History of anemia. There is no hemoptysis, melena or hematochezia. Possible component of chronic anemia Check B12, folate, guaiac all stools Patient may require additional consultation Qualifiers: Qualified Code(s): D64.9 - Anemia, unspecified (6) DVT prophylaxis Current Visit: No Status: Acute Assessment and plan: Hold SCDs for now given severe peripheral vascular disease Patient already on full dose aspirin twice daily which will continue, second dose given now. Patient plan for surgery tomorrow. If hemodynamics remain stable, CBC remains stable, can consider starting heparin subcutaneous twice daily at that time. (7) Congestive heart failure Current Visit: No Status: Chronic Assessment and plan: Patient's has history of chronic systolic cardiomyopathy. Appears compensated at this time. EF thought to be 15-20%. Patient denies history of recent cardiac workup. Patient notes last cardiovascular workup was over 4 years ago. At this time patient denies chest pain or anginal equivalent. At this time suggest cardiology consult for preoperative risk assessment. Unable to assess MET Score given patient is ambulating with a cane. Patient has risk factors including insulin-dependent diabetes, defibrillator, aortic valve replacement, cardiomyopathy, possible prior CVA? Continue patient's Current Medications Including Aspirin, Lasix, Antihypertensives, adjust as tolerated. Cardiology consultation Qualifiers: Qualified Code(s): I50.22 - Chronic systolic (congestive) heart failure Internal Medicine - CN: HPI - Data of Consult Consult date: 10/14/17 Requesting Physician: Lucas Toussaint, - Consult Narrative Reason for consult: Diabetic and cardiovascular management History of present illness: Mr. Villalpando is a 67 year old male history of insulin-dependent diabetes, aortic valve replacement, defibrillator, pacemaker, unknown EF who presents with with gangrene extremity. Patient's already been seen by Dr. Toussaint of podiatry. Plan is for patient which the right lower extremity tomorrow. Patient complaints. Currently denies headache, visual change, neck pain or focal weakness. Denies substernal chest pain, shortness of breath, palpitations or diaphoresis. Denies abdominal pain, nausea or vomiting. He denies dysuria or diarrhea. He denies fever, chills or rigors. He denies melena or hematochezia. Patient denies cough. Patient has been admitted by Dr. Toussaint a natural resource technician. Medicine has been asked for consultation. Past Med Surg Social Fam HX - Past Medical History Medical history: CHF, CVA, diabetes, hyperlipidemia, hypertension, peripheral artery disease, valvular heart disease Psychiatric history: no psych history - Past Surgical History Surgical History: coronary bypass (CABG), heart valve replacement, pacemaker/ AICD, vascular surgery, AICD, pacemaker - Social History Smoking Status: Former smoker Smokeless Tobacco Status: No Alcohol use: none Drug use: none Activity Level: Uses cane/walker - Family History Mother Adopted: No Living Status: Still Living Hx Family Cardiac Disorders: Yes Hx Family Endocrine Disorder: Yes Father Living Status: Hx Family Cardiac Disorders: Yes All systems: reviewed and no additional remarkable complaints except as stated Internal Medicine - CN: Meds Enalapril Maleate [Vasotec] 10 mg PO BID 12/17/15 [History] Furosemide [Lasix] 20 mg PO DAILY 12/17/15 [History] Simvastatin [Zocor] 40 mg PO QPM 12/17/15 [History] SitaGLIPtin [Januvia] 100 mg PO DAILY 12/17/15 [History] Sotalol [Betapace] 80 mg PO BID 12/17/15 [History] Spironolactone [Aldactone] 25 mg PO BID 12/17/15 [History] glipiZIDE [Glipizide] 10 mg PO DAILY 12/17/15 [History] metFORMIN [Glucophage] 1,000 mg PO BIDWM 12/17/15 [History] Aspirin 325 mg PO BID 01/11/16 [History] Carvedilol [Coreg] 6.25 mg PO BID 08/17/17 [History] Oxycodone HCl [Oxaydo] 5 mg PO Q6H PRN #15 tab 08/21/17 [Rx] 3 Allergy/AdvReac Type Severity Reaction Status Date / Time codeine Allergy Rash Verified 08/16/17 16:07 Internal Medicine - CN: Exam - Constitutional Vitals: Temp Pulse Resp BP Pulse Ox 98.7 F 114 17 126/82 97 10/14/17 16:33 10/14/17 16:33 10/14/17 16:33 10/14/17 16:33 10/14/17 16:33 General appearance IM: Present: A&O X 3, no acute distress, answers questions appropriately - Head Head exam: Present: atraumatic - Eye Eye exam: Present: normal appearance, sclera anicteric Pupils: Present: PERRL - ENT ENT exam: Present: mucous membranes moist - Neck Neck exam general surgery: Present: full ROM - Respiratory Respiratory exam: Present: CTAB - Cardiovascular Cardiovascular exam IM: Present: +S1, +S2 - Expanded Cardiovascular Exam Type of murmur: Present: systolic - GI/Abdominal GI/Abdominal exam IM: Present: normal bowel sounds, soft, no peritoneal signs Internal Medicine - CN: Reslt - Labs CBC & Chem 7: 10/14/17 18:42 10/14/17 18:42 Consult Discharge Plan - Plan Referrals: Lucas Toussaint DPM [Primary Care Provider] -
[2017-10-14 19:21] LABS: Basophils # 0.1 K/mcL (0.0-0.2); Basophils % 0.5 %; Eosinophils # 0.2 K/mcL (0.0-0.6); Eosinophils % 1.9 %; Hematocrit 34.7 % (37.5-50.1); Hemoglobin 10.8 g/dL (12.9-16.9); Immature Granulocytes % 0.6 % (0-4); Lymphocytes % 30.6 %; Mean Corpuscular HGB Conc 31.1 g/dL (31.6-35.5); Mean Corpuscular Hemoglobin 26.7 pg (28.0-33.3); Mean Corpuscular Volume 85.7 fL (83.0-100.0); Mean Platelet Volume 9.4 fL (9.4-12.4); Monocytes # 0.7 K/mcL (0.0-1.3); Monocytes % 7.3 %; Neutrophils # 5.8 K/mcL (1.6-8.9); Platelet Count 380 K/mcL (140-400); Red Blood Count 4.05 M/mcL (4.19-5.50); Red Cell Distribution Width 13.6 % (11.5-14.5); Segmented Neutrophils % 59.1 %
[2017-10-14] MEDS ORDERED: D5% in Water 1,000 ML IVC PRN (19:55)
[2017-10-14] MEDS ORDERED: *HR* Dextrose 50 % in Water (Syg) 50 ML SYRINGE IVP PRN (19:55)
[2017-10-14] MEDS ORDERED: Dextrose Gel 15 GM/37.5 ML TUBE PO PRN ×2 (19:55)
[2017-10-14] MEDS ORDERED: Insulin LISPRO 300 UNITS/3 ML VIAL SQ SCH (21:00)
[2017-10-14] MEDS: Aspirin 325 MG TABLET PO SCH (21:40)
[2017-10-14] MEDS: Spironolactone 25 MG TABLET PO SCH (21:40)
[2017-10-15] MEDS: Piperacillin/Tazobactam 3.375 GM in 0.9 % Sodium Chloride Mini Bag 100 ML IVPB SCH ×4 (00:42→23:36)
[2017-10-15] MEDS: Insulin LISPRO 300 UNITS/3 ML VIAL SQ SCH ×4 (01:29→20:05)
[2017-10-15 06:33] LABS: Basophils # 0.1 K/mcL (0.0-0.2); Basophils % 0.6 %; Eosinophils # 0.2 K/mcL (0.0-0.6); Eosinophils % 2.5 %; Hematocrit 33.1 % (37.5-50.1); Hemoglobin 10.4 g/dL (12.9-16.9); Immature Granulocytes % 0.5 % (0-4); Lymphocytes # 2.6 K/mcL (0.6-4.6); Mean Corpuscular HGB Conc 31.4 g/dL (31.6-35.5); Mean Corpuscular Hemoglobin 26.7 pg (28.0-33.3); Mean Corpuscular Volume 85.1 fL (83.0-100.0); Mean Platelet Volume 9.3 fL (9.4-12.4); Monocytes # 0.8 K/mcL (0.0-1.3); Monocytes % 9.8 %; Neutrophils # 4.8 K/mcL (1.6-8.9); Platelet Count 358 K/mcL (140-400); Red Blood Count 3.89 M/mcL (4.19-5.50); Red Cell Distribution Width 13.6 % (11.5-14.5); Segmented Neutrophils % 56.6 %
[2017-10-15 06:38] LABS: INR 1.1; Prothrombin Time 12.4 Seconds (9.4-12.1)
[2017-10-15 06:56] LABS: Alanine Aminotransferase 8 Units/L (7-52); Albumin 3.2 g/dL (3.5-5.7); Albumin/Globulin Ratio 0.8 (1.1-2.2); Alkaline Phosphatase 59 Units/L (34-104); Aspartate Amino Transferase 9 Units/L (13-39); BUN/Creatinine Ratio 28 (6-26); Bilirubin,Total 0.4 mg/dL (0.3-1.0); Blood Urea Nitrogen 19 mg/dL (8-23); Calcium 9.2 mg/dL (8.6-10.3); Carbon Dioxide 26 mEq/L (23-29); Chloride 102 mEq/L (98-107); Globulin 3.8 g/dL (2.4-3.5); Glucose 126 mg/dL (70-105); Osmolality,Calculated 286 (280-300); Potassium 4.4 mEq/L (3.5-5.1); Sodium 136 mEq/L (136-145); eGFR For African Americans > 60 (> 60); eGFR For Non-African Americans > 60 (> 60)
[2017-10-15] MEDS ORDERED: Insulin LISPRO 300 UNITS/3 ML VIAL SQ SCH ×3 (07:30→21:00)
[2017-10-15] MEDS: Aspirin 325 MG TABLET PO SCH ×2 (08:00→20:03)
[2017-10-15] MEDS: Spironolactone 25 MG TABLET PO SCH ×2 (08:07→20:03)
[2017-10-15] MEDS ORDERED: Furosemide 20 MG TABLET PO SCH (09:00)
[2017-10-15 09:53] LABS: Estimated Average Glucose 237 mg/dl; Hemoglobin A1C 9.9 %
--- NOTE | 2017-10-15 11:44 | Cardiology Consult Note ---
Date of Encounter: 10/15/17 Time of Encounter: 11:00 Assessment and Plan (1) Preop cardiovascular exam Current Visit: Yes Status: Acute Preoperative risk stratification requested for toe(s) amputation on right foot under MAC anesthesia. Hx of CAD s/p CABG, ischemic cardiomyopathy s/p BiV ICD, PVD, CKD, DMII. Patient denies active CV symptoms including chest pain or discomfort, shortness of breath, or activity intolerance. Reports shoveling snow this past July without chest pain/discomfort or angina. Clinically appears euvolemic upon exam. Most recent testing: LHC 2013 demonstrated stable CAD with patent 2/2 bypass grafts; TTE December 2015 demonstrated LVEF 15-20% (unchanged) with severe LVDD, severely enlarged LA size, mild hypokinesis of RV, normal functioning AV, and moderate PH. Reports BiV-ICD has not been checked in nearly 4 years. Will obtain ECG today. Recommend device check. Given hx of ICMP, CVA, DMII on insulin patient is moderate-high risk for planned surgery. Will further discuss and review with Dr. Alves. RCRI score: 4 (2) Ischemic cardiomyopathy Current Visit: Yes Status: Acute (3) Gangrene of right foot Current Visit: Yes Status: Acute Podiatry following. Plan for amputation of x5 toes on right foot today. Discussion w patient/family: The assessment and plan as outlined above was discussed with the patient and/or family members who expressed understanding and agreement. All questions were answered. Thank you for involving us in the care of your patient. Please call with any questions. The patient will be discussed and reviewed with Dr. Alves; changes to made accordingly. History of Present Illness Consult date: 10/15/17 Requesting physician: Yumiko Jasmine Consult reason: Preoperative risk stratification Chief complaint: Right foot wound History of present illness: Mr. Villalpando is a 67 year old male with PMHx significant for CAD s/p CABG (2003), AVR (bioprosthetic AV), ischemic cardiomyopathy s/p BiV-ICD, DMII, PVD w/ LE occlusion, and CKD who presented to the ED with complaints of infected foot wound. He reports he acquired frostbite to right foot in mid 2017 while outside shoveling snow. Wound has continued to worsen despite medical therapy and has been recommended to undergo toe (x5) amputation today. Hx of reported BiV-ICD, implant in 2004 at [facility]. He reports device has not been checked in >4 years. Recent CV testing: TTE 02/2014: LVEF 20%, severe global hypokinesis, mild LVDD, mildly enlarged LA size LHC 03/2014: s/p 2 of 2 patent bypass grafts, stable CAD. TTE 12/2015: LVEF 15-20%, severe global hypokinesis, severe LVDD, severely enlarged LA size, mild hypokinesis of RV, normal functioning bioprosthetic AV, mild MR/TR, moderate PH Past Med Surg Social Fam HX - Past Medical History Attestation: Yes The following information was validated with the patient. Source: patient Medical history: cardiomyopathy, CHF, coronary artery disease, CVA, diabetes, hyperlipidemia, hypertension, peripheral artery disease, valvular heart disease Psychiatric history: no psych history - Past Surgical History Surgical History: coronary bypass (CABG), heart valve replacement, pacemaker/ AICD, vascular surgery - Social History Smoking Status: Former smoker Smokeless Tobacco Status: No Alcohol use: none Drug use: none - Family History Mother Adopted: No Living Status: Still Living Hx Family Cardiac Disorders: Yes Hx Family Endocrine Disorder: Yes Father Living Status: Hx Family Cardiac Disorders: Yes Medications and Allergies Enalapril Maleate [Vasotec] 10 mg PO BID 12/17/15 [History] Furosemide [Lasix] 20 mg PO DAILY 12/17/15 [History] Simvastatin [Zocor] 40 mg PO QPM 12/17/15 [History] SitaGLIPtin [Januvia] 100 mg PO DAILY 12/17/15 [History] Sotalol [Betapace] 80 mg PO BID 12/17/15 [History] Spironolactone [Aldactone] 25 mg PO BID 12/17/15 [History] glipiZIDE [Glipizide] 10 mg PO DAILY 12/17/15 [History] metFORMIN [Glucophage] 1,000 mg PO BIDWM 12/17/15 [History] Aspirin 325 mg PO BID 01/11/16 [History] Carvedilol [Coreg] 6.25 mg PO BID 08/17/17 [History] Oxycodone HCl [Oxaydo] 5 mg PO Q6H PRN #15 tab 08/21/17 [Rx] Insulin Glargine,Hum.rec.anlog [Basaglar Kwikpen U-100] 20 unit SQ QAM 10/15/17 [History] 3 Allergy/AdvReac Type Severity Reaction Status Date / Time codeine Allergy Rash Verified 08/16/17 16:07 All Systems Review: The remainder of the systems were reviewed and are negative - Cardiovascular Cardiovascular: as per HPI Physical Examination Vital Signs, Last 4 Hours Temp Pulse Resp BP Pulse Ox 10/15/17 08:04 97.7 F 82 16 127/77 99 General: Conversant, No Apparent Distress HEENT: Atraumatic, Normocephaly, Mucus Membranes Moist Neck: No JVD, Normal carotid pulses Cardiac: Reg Rate and Rhythm, Normal S1 and S2, No Murmur Lungs: Normal Breath Sounds, No Wheeze, Rales, Rhonchi Neuro: Alert and responsive, No focal deficits noted Abdomen: Soft, Non-Tender Skin: No rashes noted on visualized skin Musculoskeletal: No Chest Wall Tenderness Extremities: Other (right foot wrapped in kerlix) Results 10/15/17 06:12 10/15/17 06:12 Lab Results 10/14/17 10/14/17 10/14/17 18:42 18:42 18:42 WBC 9.8 Hgb 10.8 L Hct 34.7 L Plt Count 380 INR 1.2 Sodium 135 L Potassium 4.7 Chloride 101 Carbon Dioxide 29 BUN 22 Creatinine 0.75 Glucose 194 H Calcium 9.7 Total Bilirubin AST ALT Alkaline Phosphatase 10/15/17 10/15/17 10/15/17 06:12 06:12 06:12 WBC 8.5 Hgb 10.4 L Hct 33.1 L Plt Count 358 INR 1.1 Sodium 136 Potassium 4.4 Chloride 102 Carbon Dioxide 26 BUN 19 Creatinine 0.68 L Glucose 126 H Calcium 9.2 Total Bilirubin 0.4 AST 9 L ALT 8 Alkaline Phosphatase 59 Active Medications Aspirin (Aspirin) 325 mg PO BID TJ Stop: 04/15/18 21:01 Last Admin: 10/15/17 08:00 Dose: Not Given Carvedilol (Coreg) 6.25 mg PO BIDWM TJ PRN Reason: Protocol Stop: 04/15/18 21:01 Last Admin: 10/15/17 08:07 Dose: 6.25 mg Dextrose/Water (Dextrose 50% (Syg)) 25 ml IVP AD PRN PRN Reason: Hypoglycemia Stop: 04/15/18 19:56 Furosemide (Lasix) 20 mg PO DAILY TJ Stop: 04/16/18 09:01 Last Admin: 10/15/17 08:07 Dose: 20 mg Glucagon (Glucagen) 1 mg IM ONCE PRN PRN Reason: Hypoglycemia Stop: 04/15/18 19:56 Glucose (Gluctose) 15 gm PO ONCE PRN PRN Reason: Hypoglycemia Stop: 04/15/18 19:56 Glucose (Gluctose) 30 gm PO ONCE PRN PRN Reason: Hypoglycemia Stop: 04/15/18 19:56 Piperacillin Sod/Tazobactam (Sod 3.375 gm/ Sodium Chloride) 100 mls @ 25 mls/ hr IVPB Q8HR [facility] Stop: 10/19/17 00:01 Last Infusion: 10/15/17 11:57 Dose: Infused Dextrose (Dextrose 5%) 1,000 mls @ 100 mls/hr IVC .Q10H PRN PRN Reason: HYPOGLYCEMIA Stop: 04/15/18 19:56 Insulin Human Lispro (Humalog) 0 units SQ Q6HR TJ PRN Reason: Protocol Stop: 04/16/18 01:16 Last Admin: 10/15/17 12:07 Dose: 2 units Lisinopril (Zestril) 10 mg PO BID [facility] Stop: 04/15/18 21:01 Last Admin: 10/15/17 08:07 Dose: 10 mg Simvastatin (Zocor) 40 mg PO QPM TJ PRN Reason: Protocol Stop: 04/16/18 18:01 Sotalol HCl (Betapace) 80 mg PO BID TJ Stop: 04/15/18 21:01 Last Admin: 10/15/17 08:07 Dose: 80 mg Spironolactone (Aldactone) 25 mg PO BID TJ Stop: 04/15/18 21:01 Last Admin: 10/15/17 08:07 Dose: 25 mg - Imaging and Cardiology Echo: report reviewed Cardiac cath: report reviewed Consult Discharge Plan - Plan Referrals: Lucas Toussaint DPM [Primary Care Provider] -
--- NOTE | 2017-10-15 14:52 | Anesthesia Evaluation PreOp ---
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: CVA (2003 - facial droop at that time; no residual deficits) Other Medical History: Diabetes Type II (insulin dependent (started on insulin 3 weeks ago)) Anesthesia History: No Prior Anesthetic Complications Alcohol Use: none Drug use: none Medications and Allergies Enalapril Maleate [Vasotec] 10 mg PO BID 12/17/15 [History] Furosemide [Lasix] 20 mg PO DAILY 12/17/15 [History] Simvastatin [Zocor] 40 mg PO QPM 12/17/15 [History] SitaGLIPtin [Januvia] 100 mg PO DAILY 12/17/15 [History] Sotalol [Betapace] 80 mg PO BID 12/17/15 [History] Spironolactone [Aldactone] 25 mg PO BID 12/17/15 [History] glipiZIDE [Glipizide] 10 mg PO DAILY 12/17/15 [History] metFORMIN [Glucophage] 1,000 mg PO BIDWM 12/17/15 [History] Aspirin 325 mg PO BID 01/11/16 [History] Carvedilol [Coreg] 6.25 mg PO BID 08/17/17 [History] Oxycodone HCl [Oxaydo] 5 mg PO Q6H PRN #15 tab 08/21/17 [Rx] Insulin Glargine,Hum.rec.anlog [Basaglar Kwikpen U-100] 20 unit SQ QAM 10/15/17 [History] 3 Allergy/AdvReac Type Severity Reaction Status Date / Time codeine Allergy Rash Verified 08/16/17 16:07 - Meds/Allergy Pre-op Review Medications Reviewed: Yes Allergies Reviewed: Yes Beta Blockers on Current Med List: Yes (coreg) If Beta Blockers taken, Date/Time (Last Dose taken): 10-15-17 coreg 8:07 Anesthesia Results - Labs 10/15/17 06:12 10/15/17 06:12 - Imaging EKG: report reviewed, image reviewed (ELECTRONIC VENTRICULAR PACEMAKER) Additional studies: TTE: Indications: DYSPNEA Impressions: LVEF 15%-20%. There is severe global hypokinesis. Left ventricle is severely dilated. There is evidence of severe diastolic dysfunction of the left ventricle. Definity was given. There is no evidence of left ventricular thrombus. Severely enlarged left atrial size. Mild hypokinesis of the right ventricle. Normal functioning bioprosthesic aortic valve Mild mitral regurgitation. Mild tricuspid regurgitation. Moderate pulmonary hypertension. Clinical correlation is suggested. Anesthesia Exam Last Vital Signs Temp 98.4 F 10/15/17 11:52 Pulse 75 10/15/17 11:52 Resp 16 10/15/17 11:52 BP 127/78 10/15/17 11:52 Pulse Ox 96 10/15/17 11:52 Weight: 76 kg NPO (# of Hours): > 8 hrs - HEENT Pupil (Motor): Pupils equal, EOMI Mallampati: III Teeth: Normal Oral Opening: Greater than 3 - INSURANCE BILLER LOC: Oriented - Cardiac Rhythm: Regular - Pulmonary Breath Sounds: bilateral Clear Respiratory Effort: Symmetrical Anesthesia Assess/Plan ASA Score: 4 Modified Lorrie Scale for Level of Consciousness: Cooperative, oriented, and tranquil Anesthetic Plan: MAC Monitoring Plan: Standard Monitors Recovery Plan: PACU
[2017-10-15] MEDS ORDERED: Bupivacaine/Clonidine Syringe 1 EACH SYRINGE ONE ×2 (15:09→16:32)
[2017-10-15] MEDS ORDERED: *HR* PHENYLEPHRINE 1,000 MCG/10 ML SYRINGE IVP ONE ×2 (16:27→17:21)
[2017-10-15] MEDS ORDERED: *HR* Etomidate 40 MG/20 ML VIAL IVP ONE (16:52)
[2017-10-15] MEDS ORDERED: Propofol 500 MG/50 ML INFUS..BTL ONE (16:52)
--- NOTE | 2017-10-15 16:56 | Internal Med Progress Note ---
Date of Encounter: 10/15/17 Time of Encounter: 11:45 - Assessment and plan (1) Gangrene of right foot Current Visit: Yes Status: Acute Assessment and plan: Referred by podiatry for admission. Right foot x-ray shows subcutaneous gas in the soft tissues of distal forefoot, suspected osteomyelitis in first metatarsal head. Patient is not septic. ESR significantly elevated. Continue broad-spectrum IV antibiotics-Zosyn per podiatry. Follow-up blood cultures and intraoperative wound cultures. Plan for transmetatarsal amputation of right foot today. Cleared by cardiology with moderate to high perioperative risk. (2) Insulin dependent diabetes mellitus Current Visit: Yes Status: Chronic Assessment and plan: Noted to have hyperglycemia at admission, blood sugars currently improving. Continue Accu-Chek blood glucose monitoring with basal bolus insulin regimen. Hemoglobin A1c noted to be 9.9%. (3) Ischemic cardiomyopathy Current Visit: Yes Status: Chronic Assessment and plan: Echocardiogram from 2016 shows severely reduced ejection fraction around 15-20% . Not in acute exacerbation. Continue diuretics, beta miguel, BETHANY inhibitor. Cardiology consult appreciated. ICD interrogation showed nonsustained ventricular tachycardia without defibrillation. Recommend to continue sotalol. (4) Anemia Current Visit: Yes Status: Chronic Assessment and plan: Hemoglobin is at baseline. Continue to monitor closely. Check iron profile. Qualifiers: Anemia type: unspecified type Qualified Code(s): D64.9 - Anemia, unspecified (5) PVD (peripheral vascular disease) Current Visit: Yes Status: Chronic Assessment and plan: Continue aspirin and Plavix. (6) CAD (coronary artery disease) Current Visit: Yes Status: Chronic Qualifiers: Coronary Disease-Associated Artery/Lesion type: bypass graft [place] vs. transplanted heart: [place] heart Associated angina: without angina Qualified Code(s): I25.810 - Atherosclerosis of coronary artery bypass graft(s) without angina pectoris (7) Unspecified essential hypertension Current Visit: Yes Status: Chronic Assessment and plan: Blood pressure well controlled. Continue beta miguel and BETHANY inhibitor. - Subjective Interval history: Reports improving right foot pain; no chest pain, dyspnea, nausea, vomiting, fever/chills; awaiting OR today for right TMSA; - Constitutional Vitals: Temp Pulse Resp BP Pulse Ox 98.4 F 75 16 127/78 96 10/15/17 11:52 10/15/17 11:52 10/15/17 11:52 10/15/17 11:52 10/15/17 11:52 General appearance: Present: A&O X 3, no acute distress, answers questions appropriately - Respiratory Respiratory exam: Present: CTAB. Absent: accessory muscle use, rales, rhonchi, wheezes - Cardiovascular Cardiovascular exam: Present: RRR, +S1, +S2. Absent: diastolic murmur, gallop, rubs, systolic murmur - GI/Abdominal GI/Abdominal exam: Present: normal bowel sounds, soft, no peritoneal signs. Absent: distended, tenderness - Extremities Exam Extremities exam: Present: full ROM, warm, radial pulses palpable and symmetrical. Absent: calf tenderness, cyanotic, pedal edema Additional comments: right foot in surgical dressing - Neurological Exam Neurological exam: Present: CN II-XII intact, oriented X3, no focal deficits. Absent: pronater drift, facial droop, speech deficit Internal Medicine: Result - Labs CBC & Chem 7: 10/15/17 06:12 10/15/17 06:12 Labs: Short CBC 10/14/17 10/15/17 Range/Units 18:42 06:12 WBC 9.8 8.5 (4.3-11.1) K/mcL Hgb 10.8 L 10.4 L (12.9-16.9) g/dL Hct 34.7 L 33.1 L (37.5-50.1) % Plt Count 380 358 (140-400) K/mcL Neutrophils # 5.8 4.8 (1.6-8.9) K/mcL BMP 10/14/17 10/15/17 18:42 06:12 Sodium 135 L 136 Potassium 4.7 4.4 Chloride 101 102 Carbon Dioxide 29 26 BUN 22 19 Creatinine 0.75 0.68 L Glucose 194 H 126 H Calcium 9.7 9.2 Liver Function 10/15/17 Range/Units 06:12 Total Bilirubin 0.4 (0.3-1.0) mg/dL AST 9 L (13-39) Units/L ALT 8 (7-52) Units/L Alkaline Phosphatase 59 (34-104) Units/L Albumin 3.2 L (3.5-5.7) g/dL - ABG Interpretation ABG results: PT/INR, D-dimer PT 12.4 Seconds (9.4-12.1) H 10/15/17 06:12 - Impressions Impressions Foot X-Ray 10/14/17 17:45 IMPRESSION: 1. Subcutaneous gas throughout the soft tissues of the distal forefoot surrounding the 1st through 3rd digits. Findings compatible with underlying soft tissue infection. 2. Lucency along the medial aspect of the 1st metatarsal head which is highly suspicious for osteomyelitis given the soft tissue gas. RECOMMENDATION: MRI of the forefoot could be obtained for further evaluation as clinically indicated to evaluate for underlying fluid collections and osteomyelitis. D/ / Russell Chen MD / Russell Chen MD Interpreting Provider: Russell Chen MD Consult Discharge Plan - Plan Referrals: Lucas Toussaint DPM [Primary Care Provider] -
[2017-10-15] MEDS ORDERED: Dextrose Gel 15 GM/37.5 ML TUBE PO PRN ×4 (17:50→18:46)
[2017-10-15] MEDS ORDERED: D5% in Water 1,000 ML IVC PRN ×2 (17:50→18:46)
[2017-10-15] MEDS ORDERED: *HR* Dextrose 50 % in Water (Syg) 50 ML SYRINGE IVP PRN ×2 (17:50→18:46)
--- NOTE | 2017-10-15 17:50 | Anesthesia Evaluation Post Op ---
Date of Encounter: 10/15/17 Time of Encounter: 17:49 - Vital Signs Vital Signs: Vital Signs/O2 Sat, Most Current Temp Pulse Resp BP Pulse Ox 98.4 F 75 16 127/78 96 10/15/17 11:52 10/15/17 11:52 10/15/17 11:52 10/15/17 11:52 10/15/17 11:52 - Lungs Lungs: Clear Ascult./Percussion - Airway Airway: Non-obstructed - Cardiovascular Regular Rate - Mental Status Mental Status: Alert & Oriented, Answers Appropriately - Pain Pain Scale: 0 Pain Scale used: Numeric (1 - 10) - Nausea Vomiting Nausea Vomiting: Not Present - Hydration Hydration: NPO, Has not voided - Discharge PostOp Status: Transfer Patient to floor
--- NOTE | 2017-10-15 18:03 | Orthopedic Operative Note ---
Date of procedure: 10/15/17 Pre-op diagnosis: Gangrene right foot Post-op diagnosis: same Procedure: 10/15/17 17:52 #1 transmetatarsal amputation right foot Implants: None Complications: None Anesthesia: MAC, local Local Anesthetics: 0.25% Sensorcaine HCL SubQ (cc) Surgeon: Lucas Toussaint Was there an patient clerical assistant present: No Estimated blood loss (cc): 20 Tourniquet Time (Minutes): 0 Specimen: Right forefoot Condition: stable Disposition: floor Procedure in Detail: 10/15/17 17:53 Details in summary of procedure: The patient was brought to surgical suite. A sign in procedure was performed. Patient was then transferred the surgical table and positioned properly safely securely. Right foot was elevated on a foam block. No tourniquet was used. Anesthetic timeout was taken. Patient was then injected with indocyanine green and SPY technology was employed to determine perfusion of the right forefoot. Perfusion was noted to proceed to the wound edge of the gangrene dorsally medially and plantarly. This afforded adequate incision planning to hopefully anticipate wound healing without complication. The ankle was then prepped with alcohol 3 times in a target block was carried out using local anesthetic. A complete ankle block was successful. The right foot was then prepped and draped in usual sterile manner. Surgical timeout was taken. The necrosis was noted to be as far proximal as the midshaft of the first metatarsal dorsally and plantarly. The necrosis involved the first second third toe completely and plantarly for at least 5-6 cm and dorsally for 6 cm. Necrosis involved the dorsal aspect over to the fourth toe. The line of necrosis was irregular therefore the original incision was drawn just to millimeters proximal to the line of necrosis to avoid the rolled skin edges throughout the wound. That time Skin Scribe was used to draw the incision from the medial aspect first metatarsal base distally and and laterally to the fifth metatarsal phalangeal joint and then proximally along the fifth metatarsal. The plantar incision was drawn again just 2 mm proximal to the line of necrosis. It to was drawn distally plantarly and laterally meeting the dorsal incision on the lateral aspect of the fifth metatarsal neck. That point the incisions were made on the dorsal flap first plantar flap second directly down to bone. Dissection was carried down to the bone whereupon the periosteum was reflected using a McGlamry elevator and last elevator dorsally. At that point a TPS saw was used to divide the first second third fourth and fifth metatarsals sequentially from dorsal to plantar. Any bleeders encountered were bovied or tied with 2-0 silk. After the osteotomies were complete and the plantar incision was divided down to the through the fascia the metatarsals were then resected from proximal to distal. At that point using Metzenbaum scissor the plantar flap was completely divided from lateral to medial the distal portion of the foot was completely amputated. I then rearranged the plantar flap medially and dorsally and discovered that we needed to remove remaining portion of the first metatarsal and portion of the base of the second metatarsal to create closure without tension. At that point the first metatarsal was then disarticulated from the first cuneiform and the base of the second metatarsal was resected dorsal plantar fashion using a command power saw. The dorsalis pedis artery at the intermetatarsal space was compromised and then clamped with a mosquito hemostat and hemostasis was achieved with 2-0 silk [id number]. Hemostasis was then achieved. The wound was flushed with copious amounts sterile saline. That juncture we noted the wound be completely clean and free of any evidence of infection or further necrosis. Wound edges were bleeding and viable. No active bleeding necessitated further use of Bovie ligature. The wound was flushed with copious amounts sterile saline. Finding no bone chips or debris agreeable to oppose the plantar and dorsal flaps there are juxtaposed by taking the plantar flap and moving it slightly medially and the dorsal flap needing the plantar flap without tension. Deep sutures were placed with 3-0 Vicryl to remove stress from the incision line. The wound was then closed with interrupted sutures of 3-0 Prolene and vera. Prior to closure TLS drain was placed. At the end of the procedure the wound was completely clean of all blood product. At that point SPY technology was used to ascertain perfusion of the dorsal and plantar flaps which was found to be viable. No evidence of loss of perfusion of the dorsal or plantar flap was noted. The TLS drain was noted to function properly was anchored with Steri-Strips. The dressing consisted of Steri-Strips Adaptic 4 x 4's ABDs pads to Curlex and mild compression. Complications encountered none. Estimated blood loss 20 mL. Patient tolerated the procedure and the anesthesia well and was sent to holding room in good condition vital signs stable. 10/20/17 17:20
[2017-10-15] MEDS ORDERED: Aspirin 325 MG TABLET PO SCH ×2 (21:00)
[2017-10-15] MEDS ORDERED: Spironolactone 25 MG TABLET PO SCH (21:00)
[2017-10-15] MEDS: *HR* OxyCODONE Immed Rel 5 MG TABLET PO PRN (23:36)
[2017-10-16] MEDS ORDERED: Piperacillin/Tazobactam 3.375 GM in 0.9 % Sodium Chloride Mini Bag 100 ML IVPB SCH
[2017-10-16] MEDS ORDERED: *HR* OxyCODONE Immed Rel 5 MG TABLET PO ONE (04:00)
--- NOTE | 2017-10-16 04:36 | Event Note ---
Date of Encounter: 10/16/17 Time of Encounter: 04:05 Pt assessed at bedside following notification of 40 beat run of V tach at 0344. Telemetry strip reviewed with Dr. Yen. Telemetry indicative of Vtach, which has terminated at time of assessment. Patient denies active CV symptoms including chest pain or discomfort, or shortness of breath. Endorses foot pain, status post #1 transmetatarsal amputation in right foot yesterday. On exam, vitals signs reviewed with RN. Patient alert and oriented, no chest tenderness, absent tachycardia, regular rhythm. Reviewed medication. Pt on sotalol. Troponin , potassium, Mg pending. Continue to monitor for serial VSS. Cardiology on consult for patient.
[2017-10-16 06:07] LABS: BUN/Creatinine Ratio 23 (6-26); Blood Urea Nitrogen 17 mg/dL (8-23); Calcium 9.1 mg/dL (8.6-10.3); Carbon Dioxide 26 mEq/L (23-29); Chloride 103 mEq/L (98-107); Glucose 220 mg/dL (70-105); Magnesium 1.8 mg/dL (1.6-2.6); Osmolality,Calculated 292 (280-300); Potassium 4.6 mEq/L (3.5-5.1); Sodium 137 mEq/L (136-145); eGFR For African Americans > 60 (> 60); eGFR For Non-African Americans > 60 (> 60)
[2017-10-16 06:08] LABS: Troponin I 0.03 ng/mL (< 0.04)
[2017-10-16 06:22] LABS: Thyroid Stimulating Hormone 1.247 mcIU/mL (0.340-5.600)
[2017-10-16] MEDS ORDERED: Insulin LISPRO 300 UNITS/3 ML VIAL SQ SCH (07:30)
[2017-10-16] MEDS: Insulin LISPRO 300 UNITS/3 ML VIAL SQ SCH ×4 (08:22→20:35)
[2017-10-16] MEDS: Furosemide 20 MG TABLET PO SCH (08:22)
[2017-10-16] MEDS: *HR* SitaGLIPtin 100 MG TABLET PO SCH (08:22)
[2017-10-16] MEDS: Spironolactone 25 MG TABLET PO SCH ×2 (08:22→20:34)
[2017-10-16] MEDS: *HR* GlipiZIDE 5 MG TABLET PO SCH (08:23)
[2017-10-16] MEDS: *HR* OxyCODONE Immed Rel 5 MG TABLET PO PRN ×3 (08:23→20:34)
[2017-10-16] MEDS: Aspirin 325 MG TABLET PO SCH ×2 (08:23→20:34)
[2017-10-16] MEDS: *HR* Metformin 500 MG TABLET PO SCH ×2 (08:23→16:49)
[2017-10-16] MEDS: Piperacillin/Tazobactam 3.375 GM in 0.9 % Sodium Chloride Mini Bag 100 ML IVPB SCH ×2 (08:24→16:49)
[2017-10-16] MEDS: Insulin DETEMIR 100 UNIT/ML X5UNITS SQ SCH (08:54)
[2017-10-16] MEDS ORDERED: Furosemide 20 MG TABLET PO SCH (09:00)
--- NOTE | 2017-10-16 14:46 | Electrocardiograph Report ---
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
--- NOTE | 2017-10-16 15:01 | Electrocardiograph Report ---
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
--- NOTE | 2017-10-16 15:01 | Electrocardiograph Report ---
[place] [id number] Test Date: 2017-10-15 Pat Name: Timothy Villalpando Department: 114 Room: 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
--- NOTE | 2017-10-16 15:22 | Podiatry Progress Note ---
Date of Encounter: 10/16/17 Time of Encounter: 12:00 - Assessment and Plan (1) Diabetes mellitus type II, non insulin dependent Current Visit: No Status: Chronic Tight glucose control to limit complications and promote healing (2) Gangrene of right foot Current Visit: Yes Status: Acute s/p right TMA per on 10.15.17 WBC 8.5, patient afebrile and VS stable, patient resting comfortably at this time patient dressing to remain intact x24 hours, will change at bedside on AM of 10.17.17 Dressing cdi and no strike through drainage noted TLS drain changed and patent- 4ml bloody drainage noted Patient complains of slight pain, states he has been taking norco Patient will have PT/OT consult for evaluation Patient to be heel touch only for transfers- limited activity. Ortho wedge shoe for right foot Patient will be inpatient for weekend. will follow over weekend Continue to manage medically- internal medicine appreciated Pain control as needed Subjective Interval history: Patient POD #1 s/p #1 transmetatarsal amputation right foot. Resting comfortably in bed. Dressing to RLE CDI. There is a TLS drain noted, less than half full. Documented 30cc bloody output overnight per nursing staff. Patient states they have been in checking it. Patient states he has not been up. States he has been in bed only with no weight bearing to foot. States he is in a little pain. Has been taking norco as ordered. Patient denies any fevers, chills , n/v or flu like symptoms. Patient denies any calf pain or SOB. Objective - Vital Signs Vital Signs: Vital Signs Temp Pulse Resp BP Pulse Ox 10/16/17 11:26 99.3 F 80 18 103/66 96 10/16/17 07:15 99.0 F 92 18 128/72 95 10/16/17 03:28 99.1 F 89 18 133/85 99 10/15/17 22:36 98.2 F 76 16 110/71 99 10/15/17 19:55 106/66 10/15/17 17:59 97.5 F L 78 16 108/70 96 Intake and Output 10/15/17 10/16/17 10/16/17 23:59 07:59 15:59 Intake Total 150 / 150 100 / 100 340 / 340 Output Total 400 / 400 375 / 375 479 / 479 Balance -250 / -250 -275 / -275 -139 / -139 Intake: IV Fluids 100 / 100 100 / 100 100 / 100 Zosyn 3.375 GM In 0.9 % Sodium 100 / 100 100 / 100 100 / 100 Chloride (Mini-Bag +) 100 ML @ 25 mls/hr IVPB Q8HR [facility] Rx#: [id number] Oral 50 / 50 0 / 0 240 / 240 Output: Urine 350 / 350 375 / 375 475 / 475 Estimated Blood Loss Wound Drainage Right Foot Other: Meal Breakfast Percent of Meal Consumed 50% Blood Glucose* 334 220 158 - Exam Exam: Dressing to RLE CDI Will leave intact at this time 4ml bloody drainage to TLS drain, patent and flowing without issue Patient awake alert and oriented No calf pain to manual compression No cellulitis or erythema noted to extremity - Lab Result Diagrams: 10/15/17 06:12 10/16/17 05:07 Labs: Abnormal lab results RBC 3.89 M/mcL (4.19-5.50) L 10/15/17 06:12 Hgb 10.4 g/dL (12.9-16.9) L 10/15/17 06:12 Hct 33.1 % (37.5-50.1) L 10/15/17 06:12 MCH 26.7 pg (28.0-33.3) L 10/15/17 06:12 MCHC 31.4 g/dL (31.6-35.5) L 10/15/17 06:12 MPV 9.3 fL (9.4-12.4) L 10/15/17 06:12 ESR >= 130 mm/hr (0-10) H 10/14/17 18:42 PT 12.4 Seconds (9.4-12.1) H 10/15/17 06:12 Glucose 220 mg/dL (70-105) H 10/16/17 05:07 POC Glucose 158 (58-89) H 10/16/17 11:41 Hemoglobin A1c 9.9 % (-5.6) H 10/15/17 06:12 AST 9 Units/L (13-39) L 10/15/17 06:12 C-Reactive Protein 17 mg/L (Less than 10) H 10/14/17 18:42 Albumin 3.2 g/dL (3.5-5.7) L 10/15/17 06:12 Globulin 3.8 g/dL (2.4-3.5) H 10/15/17 06:12 Albumin/Globulin Ratio 0.8 (1.1-2.2) L 10/15/17 06:12 Microbiology, Last 48 Hours 10/14/17 21:55 Blood Culture - Preliminary Peripheral Venipuncture No growth. 10/14/17 21:52 Blood Culture - Preliminary Peripheral Venipuncture No growth. - VTE Documentation of Mechanical Device: Intermittent pneumatic compression device Consult Discharge Plan - Plan Referrals: Lucas Toussaint DPM [Primary Care Provider] -
--- NOTE | 2017-10-16 16:09 | Internal Med Progress Note ---
Date of Encounter: 10/16/17 Time of Encounter: 12:30 - Assessment and plan (1) Gangrene of right foot Current Visit: Yes Status: Acute Assessment and plan: Right foot x-ray shows subcutaneous gas in the soft tissues of distal forefoot, suspected osteomyelitis in first metatarsal head. Podiatry on board, status post transmetatarsal amputation of right foot, postoperative day 1. Continue local wound care per podiatry recommendations. 2 sets of peripheral blood cultures negative. Surgical pathology pending. Continue IV Zosyn for now, may be discontinued 24 hours after surgery. Physical and occupational therapy evaluation. Pain control with when necessary Percocet. (2) Insulin dependent diabetes mellitus Current Visit: Yes Status: Chronic Assessment and plan: Blood sugars fairly controlled with intermittent high readings. Continue Accu- Chek blood glucose monitoring with basal bolus insulin regimen. Diabetic diet. Hemoglobin A1c noted to be 9.9%. (3) Ischemic cardiomyopathy Current Visit: Yes Status: Chronic Assessment and plan: Echocardiogram from 2016 shows severely reduced ejection fraction around 15-20% . Not in acute exacerbation. Continue diuretics, beta miguel, BETHANY inhibitor. Cardiology consult appreciated. ICD interrogation showed nonsustained ventricular tachycardia without defibrillation. Patient is noted to have an episode of ventricular tachycardia overnight, reportedly 40 beat. Patient has been asymptomatic, serum electrolytes and troponin within normal limits. Continue sotalol. High risk for complications. (4) Anemia Current Visit: Yes Status: Chronic Assessment and plan: Hemoglobin is at baseline. Continue to monitor closely. Check iron profile. Qualifiers: Anemia type: unspecified type Qualified Code(s): D64.9 - Anemia, unspecified (5) PVD (peripheral vascular disease) Current Visit: Yes Status: Chronic Assessment and plan: Continue aspirin and Plavix. (6) CAD (coronary artery disease) Current Visit: Yes Status: Chronic Qualifiers: Coronary Disease-Associated Artery/Lesion type: bypass graft [place] vs. transplanted heart: [place] heart Associated angina: without angina Qualified Code(s): I25.810 - Atherosclerosis of coronary artery bypass graft(s) without angina pectoris (7) Unspecified essential hypertension Current Visit: Yes Status: Chronic Assessment and plan: Blood pressure well controlled. Continue beta miguel and BETHANY inhibitor. - Subjective Interval history: Continues to have right foot pain; s/p TMSA yesterday; not out of bed yet; no nausea, vomiting, chest pain, dyspnea or palpitations; Noted to have a 40-beat run of VT last night, asymptomatic; - Constitutional Vitals: Temp Pulse Resp BP Pulse Ox 97.8 F 98 16 142/81 97 10/16/17 15:36 10/16/17 15:36 10/16/17 15:36 10/16/17 15:36 10/16/17 15:36 General appearance: Present: A&O X 3, no acute distress, answers questions appropriately - Respiratory Respiratory exam: Present: CTAB. Absent: accessory muscle use, rales, rhonchi, wheezes - Cardiovascular Cardiovascular exam: Present: RRR, +S1, +S2. Absent: diastolic murmur, gallop, rubs, systolic murmur - GI/Abdominal GI/Abdominal exam: Present: normal bowel sounds, soft, no peritoneal signs. Absent: distended, tenderness - Extremities Exam Extremities exam: Present: warm, radial pulses palpable and symmetrical. Absent : calf tenderness, cyanotic, pedal edema Additional comments: right foot in surgical dressing - Neurological Exam Neurological exam: Present: CN II-XII intact, oriented X3, no focal deficits. Absent: pronater drift, facial droop, speech deficit Internal Medicine: Result - Labs CBC & Chem 7: 10/15/17 06:12 10/16/17 05:07 Labs: BMP 10/16/17 05:07 Sodium 137 Potassium 4.6 Chloride 103 Carbon Dioxide 26 BUN 17 Creatinine 0.74 Glucose 220 H Calcium 9.1 Cardiac Enzymes 10/16/17 Range/Units 05:07 Troponin I 0.03 (< 0.04) ng/mL - ABG Interpretation ABG results: PT/INR, D-dimer PT 12.4 Seconds (9.4-12.1) H 10/15/17 06:12 - Impressions Impressions Foot X-Ray 10/15/17 17:50 IMPRESSION: Interval transmetatarsal amputation. No evidence of complication. No radiographic evidence of osteomyelitis. D/ / Lenin Yanes MD / Lenin Yanes MD Interpreting Provider: Lenin Yanes MD - VTE Documentation of Mechanical Device: Intermittent pneumatic compression device Consult Discharge Plan - Plan Referrals: Lucas Toussaint DPM [Primary Care Provider] -
[2017-10-17] MEDS: Piperacillin/Tazobactam 3.375 GM in 0.9 % Sodium Chloride Mini Bag 100 ML IVPB SCH ×4 (00:40→23:08)
[2017-10-17] MEDS: *HR* OxyCODONE Immed Rel 5 MG TABLET PO PRN ×3 (03:53→23:13)
[2017-10-17] MEDS: *HR* GlipiZIDE 5 MG TABLET PO SCH (07:44)
[2017-10-17] MEDS: Spironolactone 25 MG TABLET PO SCH ×2 (07:44→20:17)
[2017-10-17] MEDS: Aspirin 325 MG TABLET PO SCH ×2 (07:45→20:18)
[2017-10-17] MEDS: *HR* Metformin 500 MG TABLET PO SCH ×2 (07:45→17:01)
[2017-10-17] MEDS: Furosemide 20 MG TABLET PO SCH (07:45)
[2017-10-17] MEDS: Insulin DETEMIR 100 UNIT/ML X5UNITS SQ SCH (07:45)
[2017-10-17] MEDS: *HR* SitaGLIPtin 100 MG TABLET PO SCH (07:45)
[2017-10-17] MEDS: Insulin LISPRO 300 UNITS/3 ML VIAL SQ SCH ×4 (07:50→20:35)
--- NOTE | 2017-10-17 09:33 | Internal Med Progress Note ---
Date of Encounter: 10/17/17 Time of Encounter: 09:31 - Assessment and plan (1) Gangrene of right foot Current Visit: Yes Status: Acute Assessment and plan: Status post transmetatarsal amputation of the right foot. Continue with Zosyn, follow blood cultures we will discontinue antibiotics and cultures remain negative. PT OT evaluation. Pain control with oral oxycodone. (2) CAD (coronary artery disease) Current Visit: Yes Status: Chronic Assessment and plan: Continue with aspirin and simvastatin Qualifiers: Coronary Disease-Associated Artery/Lesion type: bypass graft [place] vs. transplanted heart: [place] heart Associated angina: without angina Qualified Code(s): I25.810 - Atherosclerosis of coronary artery bypass graft(s) without angina pectoris (3) Insulin dependent diabetes mellitus Current Visit: Yes Status: Chronic Assessment and plan: Diabetic diet. Insulin sliding scale. Insulin Levemir 20 units daily per home dose. Glucose has been between 160 and 334 over the last 24 hours however this morning was 103. We will continue to monitor closely. Target glucose 140-180. (4) Ischemic cardiomyopathy Current Visit: Yes Status: Chronic Assessment and plan: Continue with sotalol. Heart monitoring. The ICD was interrogated. (5) Anemia Current Visit: Yes Status: Chronic Assessment and plan: Hemoglobin has been since stable during this admission, currently of 10.4. Per chart review his baseline is within normal range hemoglobin in 08/16/2017 was 13.4. I suspect some blood loss from surgery. We will check iron panel. Qualifiers: Anemia type: unspecified type Qualified Code(s): D64.9 - Anemia, unspecified - Subjective Interval history: Patient reports dull moderate R foot pain well controlled with oral pain meds, no associated fever. Denies CP, SOB, N/V. - Constitutional Vitals: Temp Pulse Resp BP Pulse Ox 98.8 F 87 16 104/68 96 10/17/17 07:01 10/17/17 07:01 10/17/17 07:01 10/17/17 07:01 10/17/17 07:01 General appearance: Present: A&O X 3, no acute distress, answers questions appropriately - Respiratory Respiratory exam: Present: CTAB. Absent: accessory muscle use, rales, rhonchi, wheezes - Cardiovascular Cardiovascular exam: Present: RRR, +S1, +S2. Absent: diastolic murmur, gallop, rubs, systolic murmur - GI/Abdominal GI/Abdominal exam: Present: normal bowel sounds, soft, no peritoneal signs. Absent: distended, tenderness - Extremities Exam Extremities exam: Present: warm. Absent: calf tenderness, cyanotic, pedal edema Additional comments: Right lower extremity immobilized in a brace and covered with dressing - Neurological Exam Neurological exam: Present: CN II-XII intact, oriented X3, no focal deficits. Absent: pronater drift, facial droop, speech deficit - Skin Skin exam: Present: dry, intact Internal Medicine: Result - Labs CBC & Chem 7: 10/15/17 06:12 10/16/17 05:07 - ABG Interpretation ABG results: PT/INR, D-dimer PT 12.4 Seconds (9.4-12.1) H 10/15/17 06:12 - VTE Documentation of Mechanical Device: Intermittent pneumatic compression device Consult Discharge Plan - Plan Referrals: Lucas Toussaint DPM [Primary Care Provider] -
[2017-10-18 06:15] LABS: Basophils % 0.3 %; Eosinophils # 0.2 K/mcL (0.0-0.6); Hematocrit 25.7 % (37.5-50.1); Immature Granulocytes % 0.4 % (0-4); Lymphocytes # 2.6 K/mcL (0.6-4.6); Lymphocytes % 28.3 %; Mean Corpuscular HGB Conc 31.9 g/dL (31.6-35.5); Mean Corpuscular Hemoglobin 27.1 pg (28.0-33.3); Mean Corpuscular Volume 84.8 fL (83.0-100.0); Mean Platelet Volume 9.7 fL (9.4-12.4); Monocytes # 0.9 K/mcL (0.0-1.3); Neutrophils # 5.3 K/mcL (1.6-8.9); Platelet Count 258 K/mcL (140-400); Red Blood Count 3.03 M/mcL (4.19-5.50); Red Cell Distribution Width 13.9 % (11.5-14.5)
[2017-10-18 06:16] LABS: Hemoglobin 8.2 g/dL (12.9-16.9)
[2017-10-18 08:16] LABS: BUN/Creatinine Ratio 21 (6-26); Blood Urea Nitrogen 22 mg/dL (8-23); Calcium 8.8 mg/dL (8.6-10.3); Carbon Dioxide 27 mEq/L (23-29); Chloride 103 mEq/L (98-107); Glucose 94 mg/dL (70-105); Magnesium 1.8 mg/dL (1.6-2.6); Osmolality,Calculated 281 (280-300); Potassium 4.2 mEq/L (3.5-5.1); Sodium 134 mEq/L (136-145); eGFR For African Americans > 60 (> 60); eGFR For Non-African Americans > 60 (> 60)
[2017-10-18] MEDS: Insulin DETEMIR 100 UNIT/ML X5UNITS SQ SCH (08:41)
[2017-10-18] MEDS: Piperacillin/Tazobactam 3.375 GM in 0.9 % Sodium Chloride Mini Bag 100 ML IVPB SCH (08:41)
[2017-10-18] MEDS: Spironolactone 25 MG TABLET PO SCH ×2 (08:42→21:28)
[2017-10-18] MEDS: Aspirin 325 MG TABLET PO SCH ×2 (08:42→21:29)
[2017-10-18] MEDS: *HR* SitaGLIPtin 100 MG TABLET PO SCH (08:42)
[2017-10-18] MEDS: Insulin LISPRO 300 UNITS/3 ML VIAL SQ SCH ×5 (08:43→21:29)
[2017-10-18] MEDS: *HR* GlipiZIDE 5 MG TABLET PO SCH (08:43)
[2017-10-18] MEDS: Furosemide 20 MG TABLET PO SCH (08:43)
[2017-10-18] MEDS: *HR* Metformin 500 MG TABLET PO SCH ×2 (08:43→16:50)
[2017-10-18 09:56] LABS: % Iron Saturation 8 % (20-55); Ferritin 203 ng/ml (20-250); Iron 22 mcg/dL (65-175); Transferrin 195 mg/dL (203-362)
--- NOTE | 2017-10-18 10:12 | Internal Med Progress Note ---
Date of Encounter: 10/18/17 Time of Encounter: 10:09 - Assessment and plan (1) Gangrene of right foot Current Visit: Yes Status: Acute Assessment and plan: Status post transmetatarsal amputation of the right foot postoperative day 3, healing well. Discussed the case with podiatry. Increase activity level. Keep drain tube in place. Monitor output. Blood cultures currently negative. Patient has been afebrile. White blood cell count within normal limits. We will discontinue Zosyn. PT OT evaluation. Pain control with oral oxycodone. (2) CAD (coronary artery disease) Current Visit: Yes Status: Chronic Assessment and plan: Continue with aspirin and simvastatin Qualifiers: Coronary Disease-Associated Artery/Lesion type: bypass graft [place] vs. transplanted heart: [place] heart Associated angina: without angina Qualified Code(s): I25.810 - Atherosclerosis of coronary artery bypass graft(s) without angina pectoris (3) Insulin dependent diabetes mellitus Current Visit: Yes Status: Chronic Assessment and plan: Diabetic diet. Insulin sliding scale. Insulin Levemir 20 units daily per home dose. Glucose has been between 85 and 303 over the last 24 hours. We will continue to monitor closely. Target glucose 140-180. I will add a meal insulin before lunch. (4) Ischemic cardiomyopathy Current Visit: Yes Status: Chronic Assessment and plan: Continue with sotalol. Heart monitoring. The ICD was interrogated. (5) Anemia Current Visit: Yes Status: Chronic Assessment and plan: Hemoglobin has been since stable during this admission, currently of 10.4. Per chart review his baseline is within normal range hemoglobin in 08/16/2017 was 13.4. I suspect some blood loss from surgery. Iron and percent saturation are both low. I will initiate treatment with IV iron. Qualifiers: Anemia type: unspecified type Qualified Code(s): D64.9 - Anemia, unspecified - Subjective Interval history: Patient reports mild right foot pain well controlled with oral pain meds, no associated fever. Denies CP, SOB, N/V. - Constitutional Vitals: Temp Pulse Resp BP Pulse Ox 98.5 F 79 16 114/76 98 10/18/17 06:45 10/18/17 06:45 10/18/17 06:45 10/18/17 06:45 10/18/17 08:57 General appearance: Present: A&O X 3, no acute distress, answers questions appropriately - Respiratory Respiratory exam: Present: CTAB. Absent: accessory muscle use, rales, rhonchi, wheezes - Cardiovascular Cardiovascular exam: Present: RRR, +S1, +S2. Absent: diastolic murmur, gallop, rubs, systolic murmur - GI/Abdominal GI/Abdominal exam: Present: normal bowel sounds, soft, no peritoneal signs. Absent: distended, tenderness - Extremities Exam Additional comments: Right foot status post transmetatarsal amputation; surgical incision closed with vera, there is a drain tube in place draining serosanguineous fluid. Internal Medicine: Result - Labs CBC & Chem 7: 10/18/17 05:53 10/18/17 05:53 Labs: Short CBC 10/18/17 Range/Units 05:53 WBC 9.0 (4.3-11.1) K/mcL Hgb 8.2 L D (12.9-16.9) g/dL Hct 25.7 L (37.5-50.1) % Plt Count 258 (140-400) K/mcL Neutrophils # 5.3 (1.6-8.9) K/mcL BMP 10/18/17 05:53 Sodium 134 L Potassium 4.2 Chloride 103 Carbon Dioxide 27 BUN 22 Creatinine 1.05 Glucose 94 Calcium 8.8 - ABG Interpretation ABG results: PT/INR, D-dimer PT 12.4 Seconds (9.4-12.1) H 10/15/17 06:12 - VTE Documentation of Mechanical Device: Intermittent pneumatic compression device Consult Discharge Plan - Plan Referrals: Lucas Toussaint DPM [Primary Care Provider] -
[2017-10-18] MEDS ORDERED: Iron Sucrose Complex 400 MG in 0.9 % Sodium Chloride 250 ML IVPB ONE (10:19)
--- NOTE | 2017-10-18 10:23 | Podiatry Progress Note ---
Date of Encounter: 10/18/17 Time of Encounter: 09:40 - Assessment and Plan (1) Gangrene of right foot Current Visit: Yes Status: Acute Assessment: #1 gangrene involving the right forefoot including toes #12 and 3. Toes #45 or spared but certainly are not functional. #2 multiple comorbidities including diabetes with angiopathy neuropathy #3 history of cardiovascular disease stable Plan: #1 admit for intravenous antibiotics #2 patiently to undergo transmetatarsal amputation with primary closure, if possible with enough soft tissue coverage if not we will resort to using wound VAC. #3 request internal medicine evaluation and management of his diabetes and cardiovascular disease #4 discussed the risks versus benefits as well as alternatives to surgical intervention with the patient in terms all can understand. Patient voices comprehension. Patient ample opportunity ask questions about planned procedure and the risks involved which include infection bleeding pain loss of foot leg or life need for further surgery, failure proceeded to produce desired results. Persistent pain. Patient voices comprehension agrees to plan of care. Assessment: #1 postop day #3 healing uneventfully without complication. Patient was seen yesterday as well and was without any complaint. Dressing was dry clean and intact and TLS drain was functioning. Today we inspected the wound all sutures and vera are intact. No evidence of dehiscence. Expected periwound erythema. No gross edema. Plan: #1 remove dressing today inspected wound #2 remove Steri-Strips. Irrigate wound with saline. Reapply dry sterile dressing Mr. Villalpando can place weight on his heel only with the assistance of a walker and assistance #3 anticipate discharged within 48 hours Subjective Principal diagnosis: Status post TMA right foot Interval history: Patient underwent transmetatarsal amputation placement TLS drain without complication. We are now postop day 3. No chest pain nausea vomiting fever chills. No complaints of pain Objective - Vital Signs Vital Signs: Vital Signs Temp Pulse Resp BP Pulse Ox 10/18/17 08:57 98 10/18/17 06:45 98.5 F 79 16 114/76 98 10/18/17 04:50 98.7 F 77 14 111/71 97 10/17/17 23:41 97.9 F 80 15 107/71 97 10/17/17 19:21 98.6 F 93 15 106/67 99 10/17/17 16:35 98.9 F 102 16 152/83 98 10/17/17 11:34 98.5 F 94 16 108/57 96 Intake and Output 10/17/17 10/18/17 10/18/17 23:59 07:59 15:59 Intake Total 460 / 460 100 / 100 Output Total 300 / 300 312 / 312 Balance 160 / 160 -212 / -212 Intake: IV Fluids 100 / 100 100 / 100 Zosyn 3.375 GM In 0.9 % Sodium 100 / 100 100 / 100 Chloride (Mini-Bag +) 100 ML @ 25 mls/hr IVPB Q8HR TJ Rx#: [id number] Oral 360 / 360 Output: Urine 300 / 300 Wound Drainage 312 / 312 Right Foot 312 / 312 Other: Meal Dinner Percent of Meal Consumed 80% Blood Glucose* 276 136 - Exam Exam: Sutures and vera intact. Drain intact. 5 mL of drainage overnight Incision: Present: healing, inflamed Capillary Refill: less than 3 seconds (Of wound edges) - Lab Result Diagrams: 10/18/17 05:53 10/18/17 05:53 Labs: Abnormal lab results RBC 3.03 M/mcL (4.19-5.50) L 10/18/17 05:53 Hgb 8.2 g/dL (12.9-16.9) L D 10/18/17 05:53 Hct 25.7 % (37.5-50.1) L 10/18/17 05:53 MCH 27.1 pg (28.0-33.3) L 10/18/17 05:53 ESR >= 130 mm/hr (0-10) H 10/14/17 18:42 PT 12.4 Seconds (9.4-12.1) H 10/15/17 06:12 Sodium 134 mEq/L (136-145) L 10/18/17 05:53 POC Glucose 276 (58-89) H 10/17/17 19:28 Hemoglobin A1c 9.9 % (-5.6) H 10/15/17 06:12 Iron 22 mcg/dL (65-175) L 10/18/17 05:53 % Saturation 8 % (20-55) L 10/18/17 05:53 Transferrin 195 mg/dL (203-362) L 10/18/17 05:53 AST 9 Units/L (13-39) L 10/15/17 06:12 C-Reactive Protein 17 mg/L (Less than 10) H 10/14/17 18:42 Albumin 3.2 g/dL (3.5-5.7) L 10/15/17 06:12 Globulin 3.8 g/dL (2.4-3.5) H 10/15/17 06:12 Albumin/Globulin Ratio 0.8 (1.1-2.2) L 10/15/17 06:12 Microbiology, Last 48 Hours 10/14/17 21:55 Blood Culture - Preliminary Peripheral Venipuncture No growth. 10/14/17 21:52 Blood Culture - Preliminary Peripheral Venipuncture No growth. - VTE Documentation of Mechanical Device: Intermittent pneumatic compression device Consult Discharge Plan - Plan Referrals: Lucas Toussaint DPM [Primary Care Provider] -
[2017-10-18] MEDS: *HR* OxyCODONE Immed Rel 5 MG TABLET PO PRN ×2 (10:59→18:45)
--- NOTE | 2017-10-19 07:48 | Internal Med Progress Note ---
Date of Encounter: 10/19/17 Time of Encounter: 07:45 - Assessment and plan (1) Gangrene of right foot Current Visit: Yes Status: Acute Assessment and plan: Status post transmetatarsal amputation of the right foot postoperative day 4, healing well. Increase activity level as tolerated. Blood cultures currently negative. Patient has been afebrile. Completed antibiotic treatment. PT OT evaluation. Pain control with oral oxycodone. (2) CAD (coronary artery disease) Current Visit: Yes Status: Chronic Assessment and plan: Continue with aspirin and simvastatin Qualifiers: Coronary Disease-Associated Artery/Lesion type: bypass graft [place] vs. transplanted heart: [place] heart Associated angina: without angina Qualified Code(s): I25.810 - Atherosclerosis of coronary artery bypass graft(s) without angina pectoris (3) Insulin dependent diabetes mellitus Current Visit: Yes Status: Chronic Assessment and plan: Diabetic diet. Insulin sliding scale. Insulin Levemir 20 units daily per home dose. Follow-up with endocrinology outpatient as scheduled within the next 2 weeks. (4) Ischemic cardiomyopathy Current Visit: Yes Status: Chronic Assessment and plan: Continue with sotalol. Heart monitoring. The ICD was interrogated. (5) Anemia Current Visit: Yes Status: Chronic Assessment and plan: Hemoglobin has been since stable during this admission, currently of 10.4. Per chart review his baseline is within normal range hemoglobin in 08/16/2017 was 13.4. I suspect some blood loss from surgery. Iron and percent saturation are both low. Patient received 1 dose of Venofer yesterday. We will check CBC. Recommend iron rich foods on discharge. Qualifiers: Anemia type: unspecified type Qualified Code(s): D64.9 - Anemia, unspecified - Subjective Interval history: Patient reports 0/10 right foot pain, he has been able to ambulate to the bathroom. Blood glucose has been better controlled today. Denies CP, SOB, N/V. - Constitutional Vitals: Temp Pulse Resp BP Pulse Ox 98.0 F 52 18 134/65 98 10/19/17 06:40 10/19/17 06:40 10/19/17 06:40 10/19/17 06:40 10/19/17 06:40 General appearance: Present: A&O X 3, no acute distress, answers questions appropriately - Respiratory Respiratory exam: Present: CTAB. Absent: accessory muscle use, rales, rhonchi, wheezes - Cardiovascular Cardiovascular exam: Present: RRR, +S1, +S2. Absent: diastolic murmur, gallop, rubs, systolic murmur - Extremities Exam Additional comments: Right foot immobilized in a brace and wrapped with gauze Internal Medicine: Result - Labs CBC & Chem 7: 10/18/17 05:53 10/18/17 05:53 Labs: BMP 10/18/17 05:53 Sodium 134 L Potassium 4.2 Chloride 103 Carbon Dioxide 27 BUN 22 Creatinine 1.05 Glucose 94 Calcium 8.8 - ABG Interpretation ABG results: PT/INR, D-dimer PT 12.4 Seconds (9.4-12.1) H 10/15/17 06:12 - VTE Documentation of Mechanical Device: Intermittent pneumatic compression device Consult Discharge Plan - Plan Referrals: Lucas Toussaint DPM [Primary Care Provider] -
[2017-10-19] MEDS: Insulin LISPRO 300 UNITS/3 ML VIAL SQ SCH ×5 (07:51→21:09)
[2017-10-19] MEDS: *HR* SitaGLIPtin 100 MG TABLET PO SCH (07:53)
[2017-10-19] MEDS: *HR* GlipiZIDE 5 MG TABLET PO SCH (07:53)
[2017-10-19] MEDS: *HR* Metformin 500 MG TABLET PO SCH ×2 (07:53→16:54)
[2017-10-19] MEDS: Furosemide 20 MG TABLET PO SCH (07:53)
[2017-10-19] MEDS: Spironolactone 25 MG TABLET PO SCH ×2 (07:53→21:09)
[2017-10-19 08:18] LABS: Basophils # 0.1 K/mcL (0.0-0.2); Basophils % 0.8 %; Eosinophils # 0.2 K/mcL (0.0-0.6); Eosinophils % 2.4 %; Hematocrit 28.8 % (37.5-50.1); Immature Granulocytes % 0.6 % (0-4); Lymphocytes # 1.7 K/mcL (0.6-4.6); Lymphocytes % 26.6 %; Mean Corpuscular HGB Conc 31.3 g/dL (31.6-35.5); Mean Corpuscular Hemoglobin 26.8 pg (28.0-33.3); Mean Corpuscular Volume 85.7 fL (83.0-100.0); Mean Platelet Volume 9.6 fL (9.4-12.4); Monocytes # 0.6 K/mcL (0.0-1.3); Monocytes % 9.7 %; Neutrophils # 3.7 K/mcL (1.6-8.9); Platelet Count 278 K/mcL (140-400); Red Blood Count 3.36 M/mcL (4.19-5.50); Red Cell Distribution Width 13.8 % (11.5-14.5); Segmented Neutrophils % 59.9 %
[2017-10-19 08:38] LABS: BUN/Creatinine Ratio 29 (6-26); Blood Urea Nitrogen 17 mg/dL (8-23); Calcium 8.8 mg/dL (8.6-10.3); Carbon Dioxide 26 mEq/L (23-29); Chloride 104 mEq/L (98-107); Glucose 106 mg/dL (70-105); Osmolality,Calculated 282 (280-300); Potassium 4.3 mEq/L (3.5-5.1); Sodium 135 mEq/L (136-145); eGFR For African Americans > 60 (> 60); eGFR For Non-African Americans > 60 (> 60)
[2017-10-19] MEDS: Aspirin 325 MG TABLET PO SCH ×2 (09:12→21:38)
[2017-10-19] MEDS: Insulin DETEMIR 100 UNIT/ML X5UNITS SQ SCH (09:13)
[2017-10-19] MEDS: *HR* OxyCODONE Immed Rel 5 MG TABLET PO PRN (16:53)
[2017-10-20] MEDS: Spironolactone 25 MG TABLET PO SCH (07:42)
[2017-10-20] MEDS: *HR* GlipiZIDE 5 MG TABLET PO SCH (07:42)
[2017-10-20] MEDS: Furosemide 20 MG TABLET PO SCH (07:42)
[2017-10-20] MEDS: *HR* SitaGLIPtin 100 MG TABLET PO SCH (07:42)
[2017-10-20] MEDS: *HR* Metformin 500 MG TABLET PO SCH (07:42)
[2017-10-20] MEDS: Insulin LISPRO 300 UNITS/3 ML VIAL SQ SCH ×3 (07:43→12:17)
[2017-10-20] MEDS: Aspirin 325 MG TABLET PO SCH (10:12)
[2017-10-20] MEDS: Insulin DETEMIR 100 UNIT/ML X5UNITS SQ SCH (10:12)
--- NOTE | 2017-10-20 13:02 | Discharge Summary ---
Date of Encounter: 10/20/17 Time of Encounter: 12:00 - NOTES TO OUTPATIENT PROVIDER Notes to Outpatient Provider: Will need follow up with thursday. Follow up with PCP after discharge. Follow with endocrinology - Discharge Diagnosis (1) Diabetes mellitus type II, non insulin dependent Priority: Secondary Status: Chronic Comments: Diabetic diet. Insulin sliding scale. Insulin Levemir 20 units daily per home dose. Follow-up with endocrinology outpatient as scheduled within the next 2 weeks. (2) Gangrene of right foot Priority: Primary Status: Acute Comments: Assessment: #1 gangrene involving the right forefoot including toes #1 2 and 3. Toes #4 5 spared but certainly are not functional. #2 multiple comorbidities including diabetes with angiopathy neuropathy #3 history of cardiovascular disease stable s/p right TMA per on 10.15.17 WBC 6.2, patient afebrile and VS stable, patient resting comfortably at this time patient dressing to remain intact, changed yesterday per , will change at follow up wound care appointment Patient will need appointment tomorrow afternoon with in wound care clinic [place] 5/325 PO q6h as needed for pain, 5 days, prescription provided Augmentin 500mg PO BID x5 days prescription provided Discussed new medications at bedside, verbalized understanding Dressing cdi and no strike through drainage noted TLS drain was removed per over weekend PT/OT consult reviewed and appreciated, patient functional to return home Patient to be heel touch only for transfers- limited activity. Diabetic cast boot- may be discharged after boot obtained- Call with any trauma or bleeding Call with any fevers, chills, n/v or flu like symptoms Verbalized understanding (3) CAD (coronary artery disease) Priority: Secondary Status: Chronic Comments: Continue with aspirin and simvastatin Qualifiers: Coronary Disease-Associated Artery/Lesion type: bypass graft [place] vs. transplanted heart: [place] heart Associated angina: without angina Qualified Code(s): I25.810 - Atherosclerosis of coronary artery bypass graft(s) without angina pectoris (4) Ischemic cardiomyopathy Priority: Secondary Status: Chronic Comments: Continue with sotalol. Heart monitoring. The ICD was interrogated. (5) Anemia Priority: Secondary Status: Chronic Comments: Hemoglobin has been since stable during this admission, currently of 10.4. Per chart review his baseline is within normal range hemoglobin in 08/16/2017 was 13.4. Per internal medicine: suspect some blood loss from surgery. Iron and percent saturation are both low. Patient received 1 dose of Venofer yesterday. We will check CBC. Recommend iron rich foods on discharge. Qualifiers: Anemia type: unspecified type Qualified Code(s): D64.9 - Anemia, unspecified Labs on day of discharge: Labs from last 24 hours 10/20/17 10/20/17 10/19/17 11:20 07:13 19:40 POC Glucose 120 H 120 H 260 H 10/19/17 16:02 POC Glucose 213 H - Impressions ITS Impressions Foot X-Ray 10/14/17 17:45 IMPRESSION: 1. Subcutaneous gas throughout the soft tissues of the distal forefoot surrounding the 1st through 3rd digits. Findings compatible with underlying soft tissue infection. 2. Lucency along the medial aspect of the 1st metatarsal head which is highly suspicious for osteomyelitis given the soft tissue gas. RECOMMENDATION: MRI of the forefoot could be obtained for further evaluation as clinically indicated to evaluate for underlying fluid collections and osteomyelitis. D/ / Russell Chen MD / Russell Chen MD Interpreting Provider: Russell Chen MD Foot X-Ray 10/15/17 17:50 IMPRESSION: Interval transmetatarsal amputation. No evidence of complication. No radiographic evidence of osteomyelitis. D/ / Lenin Yanes MD / Lenin Yanes MD Interpreting Provider: Lenin Yanes MD - Hospital Course Hospital course: Mr. Villalpando is a 67 year old male who was admitted to [facility] on 10/14/[address] Toussaint for a planned TMA of the right foot secondary to dry gangrene which had been monitored over the past 8 weeks and is now demarcated. Patient has an extensive history of vascular disease with intervention per Dr. Chen. On October 15 patient underwent a TMA. Patient tolerated procedure well and was without complication. Patient went to the floor with a dry sterile dressing and a TLS drain in place. At 4 AM on October 16 patient was noted to have a 40 beat run of V. tach. He was assessed per internal medicine troponins potassium and magnesium were obtained within normal limits patient had no cardiovascular symptoms and no shortness of breath cardiology was contacted at this time however there is no note from cardiology. Per internal medicine notes patient's ICD was interrogated at bedside. During the patient's stay blood cultures were negative for any growth. Patient had a PT and OT evaluation status post surgery and was okay for discharge and safety. Patient was instructed on discharge to continue sotalol and follow-up with cardiology on an outpatient basis. Patient was also instructed to follow up with his primary care provider. And to follow up with Dr. Toussaint in the wound care center. Patient is to remain minimal weightbearing heel touch only for transfers. He verbalizes understanding of discharge. Patient to call with any fevers, chills, nausea vomiting or flulike symptoms. Patient and vital signs are stable. Patient will be discharged in good condition. Time spent discussing smoking cessation with patient: 3 to 10 minutes - Time Spent with Patient Total time spent providing and/or coordinating discharge services: Less than 30 minutes - Discharge Medications Prescriptions: Amoxicillin/Clavulanate [Augmentin] 500 mg PO BIDWM 5 Days #10 tablet HYDROcodone/Acet 5/325 mg [[place] 5-325 mg] 1 tab PO Q6H PRN 5 Days #20 tab PRN Reason: Pain Home Medications: Enalapril Maleate [Vasotec] 10 mg PO BID 12/17/15 [History] Furosemide [Lasix] 20 mg PO DAILY 12/17/15 [History] Simvastatin [Zocor] 40 mg PO QPM 12/17/15 [History] SitaGLIPtin [Januvia] 100 mg PO DAILY 12/17/15 [History] Sotalol [Betapace] 80 mg PO BID 12/17/15 [History] Spironolactone [Aldactone] 25 mg PO BID 12/17/15 [History] glipiZIDE [Glipizide] 10 mg PO DAILY 12/17/15 [History] metFORMIN [Glucophage] 1,000 mg PO BIDWM 12/17/15 [History] Aspirin 325 mg PO BID 01/11/16 [History] Carvedilol [Coreg] 6.25 mg PO BID 08/17/17 [History] Oxycodone HCl [Oxaydo] 5 mg PO Q6H PRN #15 tab 08/21/17 [Rx] Insulin Glargine,Hum.rec.anlog [Basaglar Kwikpen U-100] 20 unit SQ QAM 10/15/17 [History] Amoxicillin/Clavulanate [Augmentin] 500 mg PO BIDWM 5 Days #10 tablet 10/20/17 [ Rx] HYDROcodone/Acet 5/325 mg [[place] 5-325 mg] 1 tab PO Q6H PRN 5 Days #20 tab 10/20 [Rx] Allergies/Adverse Reactions: 3 Allergy/AdvReac Type Severity Reaction Status Date / Time codeine Allergy Rash Verified 08/16/17 16:07 Date of admission: 10/14/17 16:21 Primary care physician: uLcas Toussaint, Consults: 10/14/17 20:00 Consult to Cardiology [CONS] Routine Comment: Consulting Provider: Cardiology Brenda Reason for Consult: pre operative risk assessment. Hx of Systolic BUCKET CHUCKER, CVA, defib/pacemaker Call Completed: No 10/16/17 16:24 Consult to Physical Therapy [CONS] Routine Comment: Evaluate, develop and implement POC Reason for Consult: evaluation- heel touch only to RLE for transfers- limited activity- ortho wedge shoe Does patient have active BEDREST order?: No Is patient medically & hemodynamically stable?: Yes Patient assessed for mobility or mobilized this visit?: No 10/20/17 10:38 Consult to Offset Press Operator Apprentice [CONS] Routine Reason for SW Consult: discharge planning Discharging clinician: Rea Tellez Anticipated date of discharge: 10/20/17 - Patient Status Disposition: Home, Self-Care Condition: Good Functional capacity at discharge: uses cane/walker Overall status at discharge: patient is progressing back to baseline - Discharge Instructions Instructions: Hydrocodone/Acetaminophen (By mouth), Amoxicillin/Clavulanate Potassium (By mouth) Follow Up With: Aditya Espinoza Jr, MD [Partnered Physician] - 10/26/17 10:15 am Lucas Toussaint DPM [Primary Care Provider] - Additional Instructions: Follow-up appointments: If there is not an appointment listed below, please call your physician and schedule a follow-up appointment. If you have congestive heart failure and your symptoms return, make an appointment with your physician. Medication List: Carry an up to date list of medications you are taking at all time. We have given you an updated medication list including any new medications that you have been prescribed. Please provide that list to your primary provider Symptoms: If your condition changes or you experience any of the following symptoms, notify your physician immediately: Unusual or worsening pain, fever, persistent nausea and vomiting, bleeding, increase in swelling (especially in your legs), sudden weight gain, extreme dizziness, chest pain, increased drainage or redness from a wound or incision. Go to the emergency department if you experience a problem with breathing. Weights: If you have a history of swelling or shortness of breath, weigh yourself daily and notify your physician if you have a weight gain of two or more pounds in one day or 5 or more pounds in a week. If you experience any of the warning signs for stroke: Sudden numbness or weakness of the face, arm or leg; especially on one side of the body, sudden confusion, trouble speaking or understanding, sudden trouble seeing in one or both eyes, sudden trouble walking, dizziness, loss of balance or coordination, sudden sever headache with no cause; Call 911 or go to the emergency room. Stroke is a medical emergency. Some risk factors for stroke: Age, cigarette smoking, diabetes, excessive alcohol consumption, family history , high blood pressure, overweight, physical inactivity, prior stroke, heart attack, diagnosis of carotid artery stenosis or other artery disease. If you smoke, STOP: Smoking or tobacco use significantly increases your risk of heart and lung disease. Your chance of disease greatly increases if you continue to smoke. For more information, call the [place] tobacco quit line for smoking cessation QUIT-NOW ( ) - Diet and Activity Activity: as per physical therapy, other (Limited weightbearing, heel touch only , ambulation with cam boot only) Diet: advance to your usual diet, diabetic diet - VTE Documentation of Mechanical Device: Intermittent pneumatic compression device
--- NOTE | 2017-10-20 13:04 | Internal Med Progress Note ---
Date of Encounter: 10/20/17 Time of Encounter: 08:00 - Assessment and plan (1) Gangrene of right foot Current Visit: Yes Status: Acute Assessment and plan: Status post transmetatarsal amputation of the right foot postoperative day 5, healing well. Increase activity level as tolerated. Blood cultures finalized negative. Patient has been afebrile. Completed antibiotic treatment. Pain control with oral oxycodone. (2) CAD (coronary artery disease) Current Visit: Yes Status: Chronic Assessment and plan: Continue with aspirin and simvastatin Qualifiers: Qualified Code(s): I25.810 - Atherosclerosis of coronary artery bypass graft( s) without angina pectoris (3) Insulin dependent diabetes mellitus Current Visit: Yes Status: Chronic Assessment and plan: Diabetic diet. Insulin sliding scale. Insulin Levemir 20 units daily per home dose. Follow-up with endocrinology outpatient as scheduled within the next 2 weeks. Continue current current regimen while inpatient. We will resume Lantus per his hat body sorter recommendation on discharge. He will not need coverage at home. I recommended close follow-up with his hat body sorter. (4) Ischemic cardiomyopathy Current Visit: Yes Status: Chronic Assessment and plan: Continue with sotalol. Heart monitoring. The ICD was interrogated. Patient is medically stable for discharge from our standpoint. I will sign off. Thank you for allowing us to participate in the care of Mr. Villalpando. (5) Anemia Current Visit: Yes Status: Chronic Assessment and plan: Hemoglobin improved after IV iron infusion, currently 9.0, stable. Recommend iron rich foods on discharge. Recheck CBC by PCP and 2 weeks and could repeat iron infusion if low. Qualifiers: Qualified Code(s): D64.9 - Anemia, unspecified - Subjective Interval history: Patient reports 0/10 right foot pain, he has been able to ambulate in his hospital room. Blood glucose has been ranging from 120-250. Denies CP, SOB, N/ V. - Constitutional Vitals: Temp Pulse Resp BP Pulse Ox 97.7 F 83 18 116/71 98 10/20/17 10:29 10/20/17 10:29 10/20/17 10:29 10/20/17 10:29 10/20/17 10:29 General appearance: Present: A&O X 3, no acute distress, answers questions appropriately - Eye Eye exam: Present: PERRL, conjuntiva pink, sclera anicteric Pupils: Present: PERRL - Respiratory Respiratory exam: Present: CTAB. Absent: accessory muscle use, rales, rhonchi, wheezes - Cardiovascular Cardiovascular exam: Present: RRR, +S1, +S2. Absent: diastolic murmur, gallop, rubs, systolic murmur - GI/Abdominal GI/Abdominal exam: Present: normal bowel sounds, soft, no peritoneal signs. Absent: distended, tenderness Internal Medicine: Result - Labs CBC & Chem 7: 10/19/17 08:00 10/19/17 08:00 - ABG Interpretation ABG results: PT/INR, D-dimer PT 12.4 Seconds (9.4-12.1) H 10/15/17 06:12 - VTE Documentation of Mechanical Device: Intermittent pneumatic compression device Consult Discharge Plan - Plan Referrals: Lucas Toussaint DPM [Primary Care Provider] - Prescriptions: Amoxicillin/Clavulanate [Augmentin] 500 mg PO BIDWM 5 Days #10 tablet HYDROcodone/Acet 5/325 mg [[place] 5-325 mg] 1 tab PO Q6H PRN 5 Days #20 tab PRN Reason: Pain
--- NOTE | 2017-10-20 14:37 | Internal Med Progress Note ---
Date of Encounter: 10/20/17 - Assessment and plan (1) Gangrene of right foot Current Visit: Yes Status: Acute (2) CAD (coronary artery disease) Current Visit: Yes Status: Chronic Qualifiers: Coronary Disease-Associated Artery/Lesion type: bypass graft [place] vs. transplanted heart: [place] heart Associated angina: without angina Qualified Code(s): I25.810 - Atherosclerosis of coronary artery bypass graft(s) without angina pectoris (3) Insulin dependent diabetes mellitus Current Visit: Yes Status: Chronic (4) Ischemic cardiomyopathy Current Visit: Yes Status: Chronic (5) Anemia Current Visit: Yes Status: Chronic Qualifiers: Anemia type: unspecified type Qualified Code(s): D64.9 - Anemia, unspecified (6) Diabetic ulcer of right foot Current Visit: Yes Status: Acute - Subjective Interval history: Patient reports 0/10 right foot pain, he has been able to ambulate in his hospital room. Blood glucose has been ranging from 120-250. Denies CP, SOB, N/ V. - Constitutional Vitals: Temp Pulse Resp BP Pulse Ox 97.7 F 83 18 116/71 98 10/20/17 10:29 10/20/17 10:29 10/20/17 10:29 10/20/17 10:29 10/20/17 10:29 General appearance: Present: A&O X 3, no acute distress, answers questions appropriately Internal Medicine: Result - Labs CBC & Chem 7: 10/19/17 08:00 10/19/17 08:00 - ABG Interpretation ABG results: PT/INR, D-dimer PT 12.4 Seconds (9.4-12.1) H 10/15/17 06:12 - VTE Documentation of Mechanical Device: Intermittent pneumatic compression device Consult Discharge Plan - Plan Instructions: Hydrocodone/Acetaminophen (By mouth), Amoxicillin/Clavulanate Potassium (By mouth) Additional Instructions: Follow-up appointments: If there is not an appointment listed below, please call your physician and schedule a follow-up appointment. If you have congestive heart failure and your symptoms return, make an appointment with your physician. Medication List: Carry an up to date list of medications you are taking at all time. We have given you an updated medication list including any new medications that you have been prescribed. Please provide that list to your primary provider Symptoms: If your condition changes or you experience any of the following symptoms, notify your physician immediately: Unusual or worsening pain, fever, persistent nausea and vomiting, bleeding, increase in swelling (especially in your legs), sudden weight gain, extreme dizziness, chest pain, increased drainage or redness from a wound or incision. Go to the emergency department if you experience a problem with breathing. Weights: If you have a history of swelling or shortness of breath, weigh yourself daily and notify your physician if you have a weight gain of two or more pounds in one day or 5 or more pounds in a week. If you experience any of the warning signs for stroke: Sudden numbness or weakness of the face, arm or leg; especially on one side of the body, sudden confusion, trouble speaking or understanding, sudden trouble seeing in one or both eyes, sudden trouble walking, dizziness, loss of balance or coordination, sudden sever headache with no cause; Call 911 or go to the emergency room. Stroke is a medical emergency. Some risk factors for stroke: Age, cigarette smoking, diabetes, excessive alcohol consumption, family history , high blood pressure, overweight, physical inactivity, prior stroke, heart attack, diagnosis of carotid artery stenosis or other artery disease. If you smoke, STOP: Smoking or tobacco use significantly increases your risk of heart and lung disease. Your chance of disease greatly increases if you continue to smoke. For more information, call the [place] tobacco quit line for smoking cessation QUIT-NOW ( ) Referrals: Lucas Toussaint DPM [Primary Care Provider] - Prescriptions: Amoxicillin/Clavulanate [Augmentin] 500 mg PO BIDWM 5 Days #10 tablet HYDROcodone/Acet 5/325 mg [[place] 5-325 mg] 1 tab PO Q6H PRN 5 Days #20 tab PRN Reason: Pain
[2017-10-20 14:52] VITALS: BP 127/81
== END 2017-10-20 15:55 | disposition home or self-care (01) | DRG 240 ==
LOC: 3NENU 16:21
PROVIDERS: ADMIT Podiatrist Foot Surgery; ATTEND Podiatrist Foot Surgery

== ENCOUNTER 2018-12-30 07:57 | Observation (INO) ==
[2018-12-30] MEDS ORDERED: Clindamycin 900 MG/50 ML 900 MG/50 ML IV.SOLN IVPB ONE (08:34)
[2018-12-30] MEDS ORDERED: Ringers Solution, Lactated 1,000 ML IVC SCH (08:45)
--- NOTE | 2018-12-30 09:05 | Anesthesia Evaluation PreOp ---
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 History: CVA (no residual) Other Medical History: Diabetes Type II Anesthesia History: No Prior Anesthetic Complications, Past Anesthesia (CABG, AVR, toe amps, peripheral vascular sx) Alcohol Use: none Drug use: none Medications and Allergies Enalapril Maleate [Vasotec] 10 mg PO BID 12/17/15 [History] Furosemide [Lasix] 20 mg PO DAILY 12/17/15 [History] Simvastatin [Zocor] 40 mg PO QPM 12/17/15 [History] SitaGLIPtin [Januvia] 100 mg PO DAILY 12/17/15 [History] Sotalol [Betapace] 80 mg PO BID 12/17/15 [History] glipiZIDE [Glipizide] 10 mg PO DAILY 12/17/15 [History] metFORMIN [Glucophage] 1,000 mg PO BIDWM 12/17/15 [History] Aspirin 325 mg PO BID 01/11/16 [History] Carvedilol [Coreg] 6.25 mg PO BID 08/17/17 [History] Insulin Glargine,Hum.rec.anlog [Basaglar Kwikpen U-100] 30 unit SQ QAM 10/15/17 [History] Clopidogrel [Plavix] 75 mg PO DAILY #30 tablet 11/10/18 [Rx] Spironolactone [Aldactone] 12.5 mg PO DAILY 11/10/18 [History] Allergy/AdvReac Type Severity Reaction Status Date / Time codeine Allergy Rash Verified 12/28/18 15:21 - Meds/Allergy Pre-op Review Medications Reviewed: Yes Allergies Reviewed: Yes Beta Blockers on Current Med List: Yes If Beta Blockers taken, Date/Time (Last Dose taken): 12-29-18 at 0900 Anesthesia Exam Selected Entries 12/30/18 08:26 12/30/18 08:48 Blood Glucose* 284 H 284 H Temperature 98.0 F 98.0 F Pulse Rate 91 91 Respiratory Rate 18 18 Blood Pressure 150/88 150/88 O2 Sat by Pulse Oximetry 99 99 Weight: 80kg NPO (# of Hours): 8 - HEENT Pupil (Motor): EOMI Mallampati: II Teeth: Poor dentition Oral Opening: Less than or equal to 3 - CARDIOPULMONARY SUPERVISOR LOC: Oriented CARDIOPULMONARY SUPERVISOR Motor: Normal RUE, Normal LUE, Normal RLE, Normal LLE, Normal Face CARDIOPULMONARY SUPERVISOR Sensory: Normal: RUE, LUE, RLE, LLE, Face - Cardiac Rhythm: Regular Murmur: None - Pulmonary Breath Sounds: bilateral Clear Respiratory Effort: Symmetrical Anesthesia Assess/Plan ASA Score: 4 Level of consciousness: Cooperative, Oriented Anesthetic Plan: MAC Monitoring Plan: Standard Monitors Recovery Plan: Other
--- NOTE | 2018-12-30 09:17 | History & Physical Report ---
Date of Encounter: 12/30/18 Time of Encounter: 09:17 24 Hour HP Update - Instructions Instructions: If the History and Physical is less than 30 days old and was completed prior to A.M. admission and or procedure and has NOT been updated on calendar day of procedure please complete this update prior to performing procedure. - Update Patient reports changes in Medical Condition: No Changes in examination, assessment, or condition: No Changes in Medication: No Preop tests/diagnostics Reviewed: Yes Pre-Op MRSA Screen: Negative Surgery Remains Indicated: Yes Consent for Planned Operative Procedure(s) Verified: Yes
[2018-12-30] MEDS ORDERED: *HR* FentaNYL (PF) 100 MCG/2 ML VIAL ONE (10:14)
[2018-12-30] MEDS ORDERED: *HR* Midazolam HCl 2 MG/2 ML VIAL ONE (10:14)
[2018-12-30] MEDS ORDERED: Propofol 500 MG/50 ML INFUS..BTL ONE (10:15)
[2018-12-30] MEDS ORDERED: Ropivicaine 0.25% 20 ml Syringe INTRAART ONE (10:15)
[2018-12-30] MEDS ORDERED: Lidocaine -MPF 2% 2 ML VIAL ONE (10:15)
[2018-12-30] MEDS ORDERED: *HR* PHENYLEPHRINE 1,000 MCG/10 ML SYRINGE IVP ONE (11:47)
[2018-12-30] MEDS ORDERED: EPHEDrine 50 MG/ML VIAL ONE (12:05)
--- NOTE | 2018-12-30 14:54 | Podiatry Progress Note ---
Date of Encounter: 12/30/18 Time of Encounter: 14:49 - Assessment and Plan (1) Osteomyelitis Current Visit: Yes Status: Acute Assessment: S/P left great toe and distal metatarsal #[address] Toussaint Dressing to left foot in tact, no strike through, no drainage noted. Plan: Leave dressing in place Surgical shoe ordered Patient will need IV antibiotics for the next 48 hours Qualifiers: Osteomyelitis type: unspecified type Osteomyelitis location: foot Laterality: left Qualified Code(s): M86.9 - Osteomyelitis, unspecified (2) Diabetic foot ulcer Current Visit: Yes Status: Chronic Assessment: S/P derbidement of right 1 x 1 cm foot ulcer with puraply graft placement Dressing in tact. No strike through noted, no drainage noted. Plan: Hospitalist consulted for diabetic/medical management- appreciate recommendations Do not change dressing. Surgical shoe ordered Continue IV ATB Will continue to follow Qualifiers: Diabetic foot ulcer location: other Diabetes mellitus type: type 2 Latera lity: right Non-pressure ulcer stage: with fat layer exposed Qualified Code(s): E11.621 - Type 2 diabetes mellitus with foot ulcer; L97.512 - Non- pressure chronic ulcer of other part of right foot with fat layer exposed Subjective Interval history: Patient awake in bed. at bedside. Patient underwent left toe amputation and debridement of right foot ulcer with Dr. Toussaint this afternoon. Patient denies any fevers, chills, nausea, vomiting, or diarrhea. Patient denies any calf pain, chest pain, or shortness of breath. Patient denies any overall pain. No other questions or concerns at this time. Objective - Vital Signs Vital Signs: Vital Signs Temp Pulse Resp BP Pulse Ox 12/30/18 13:44 97.6 F 68 16 102/63 99 12/30/18 08:48 98.0 F 91 18 150/88 99 12/30/18 08:26 98.0 F 91 18 150/88 99 Intake and Output 12/29/18 12/30/18 12/30/18 23:59 07:59 15:59 Output Total 5 / 5 Balance -5 / -5 Output: Estimated Blood Loss 5 / 5 Other: Weight 79.832 kg Blood Glucose* 136 Patient Weight 12/30/18 23:59 Weight 79.832 kg - Lab Labs: Abnormal lab results POC Glucose 284 mg/dL (70-99) H 12/30/18 08:19 Consult Discharge Plan - Plan Referrals: Aditya Espinoza Jr, MD [Primary Care Provider] -
[2018-12-30] MEDS ORDERED: Piperacillin/Tazobactam 3.375 GM in 0.9 % Sodium Chloride Mini Bag 100 ML IVPB SCH (16:00)
[2018-12-30] MEDS ORDERED: *HR* Metformin 500 MG TABLET PO SCH (17:00)
[2018-12-30] MEDS: Piperacillin/Tazobactam 3.375 GM in 0.9 % Sodium Chloride Mini Bag 100 ML IVPB SCH ×2 (17:40→23:53)
[2018-12-30] MEDS: Spironolactone 25 MG TABLET PO SCH (20:30)
[2018-12-30] MEDS: Lisinopril 20 MG TABLET PO SCH (20:31)
[2018-12-31] MEDS ORDERED: *HR* Dextrose 50 % in Water (Syg) 50 ML SYRINGE IVP PRN (00:07)
[2018-12-31] MEDS ORDERED: D5% in Water 1,000 ML IVC PRN (00:07)
[2018-12-31] MEDS ORDERED: Dextrose Gel 15 GM/37.5 ML TUBE PO PRN ×2 (00:07)
[2018-12-31] MEDS: traMADol 50 MG TABLET PO PRN ×2 (00:17→08:39)
[2018-12-31] MEDS: Insulin LISPRO 300 UNITS/3 ML VIAL SQ SCH ×6 (00:35→21:49)
[2018-12-31] MEDS ORDERED: Acetaminophen IV 1,000 MG/100 ML INFUS..BTL IVPB ONE (01:40)
--- NOTE | 2018-12-31 02:04 | Internal Medicine Consult Note ---
Date of Encounter: 12/31/18 Time of Encounter: 00:00 - Assessment and Plan (1) Complete traumatic amputation of left great toe, initial encounter Current Visit: Yes Status: Acute Assessment and plan: Acute amputation of the left great toe yesterday. Pt. has hx of chronic DM w/complications of diabetic foot ulcer, poor healing, PAD, and previous amputations. Pt. reports pain in left foot d/t current amputation as well as pain in right foot from skin grafting yesterday. Pt. reports he does not want opioid pain medications because he doesn't want to become addicted. Discussed pain management with him and will order IVPB Ofirmev and Ultram as needed. Will adjust pain mgmt as needed per pts. response. Zanaflex ordered for spasms. Pt. is high risk for complications from surgery and his poorly controlled DM, especially with respect to poor wound healing hx and hx of diabetic foot ulcers. Pt. is also high risk due to history of CAD, diastolic and systolic CHF, PAD, HTN, HLD, history of CABG, and pacemaker/AICD. Outpatient in a bed. (2) Diabetes mellitus Current Visit: Yes Status: Chronic Assessment and plan: Hx of chronic diabetes controlled with insulin and oral antihyperglycemic medications. Continue glipizide and Januvia but hold metformin. Administer low-dose correction sliding scale insulin with hypoglycemic protocol. BG checks before meals at bedtime. A1c in a.m. labs. Qualifiers: Diabetes mellitus type: type 2 Diabetes mellitus skilled nursing insulin use: with terminal computer operator use Diabetes mellitus complication status: with circulatory complication Diabetes mellitus complication detail: with other circulatory complications Qualified Code(s): E11.59 - Type 2 diabetes mellitus with other circulatory complications; Z79.4 - terminal computer operator (current) use of insulin (3) HTN (hypertension) Current Visit: Yes Status: Chronic Assessment and plan: Hx of chronic HTN. Monitor pt. and VS. continue patient's Aldactone, Vasotec, and Coreg. Qualifiers: Hypertension type: essential hypertension Qualified Code(s): I10 - Essential (primary) hypertension (4) HLD (hyperlipidemia) Current Visit: Yes Status: Chronic Assessment and plan: Hx of chronic HLD. Lipid panel in a.m. labs. Continue Zocor. Qualifiers: Hyperlipidemia type: mixed hyperlipidemia Qualified Code(s): E78.2 - Mixed hyperlipidemia (5) ICD (implantable cardioverter-defibrillator), biventricular, in situ Current Visit: Yes Status: Chronic Assessment and plan: Hx of chronic ICD, biventricular. Pt. reports this device was replaced three weeks ago. Cardiac monitoring. Continue patient's Plavix and Betapace. (6) Diabetic ulcer of right foot Current Visit: Yes Status: Chronic Assessment and plan: Hx of chronic diabetic ulcer right foot. Pt. received skin grafts today. Reports pain in rt. foot but states he does not want opioids. Ofirmev and Ultram ordered. Qualifiers: Diabetic foot ulcer location: unspecified part of foot Diabetes mellitus type: type 2 Non-pressure ulcer stage: unspecified non-pressure ulcer stage Qualified Code(s): E11.621 - Type 2 diabetes mellitus with foot ulcer; L97.519 - Non-pressure chronic ulcer of other part of right foot with unspecified severity (7) CAD (coronary artery disease) Current Visit: Yes Status: Chronic Assessment and plan: Hx of chronic CAD. Continue HTN and HLD medications. Lipid panel in a.m. labs. Cardiac monitoring. Continue Betapace. Qualifiers: Coronary Disease-Associated Artery/Lesion type: bypass graft [place] vs. transplanted heart: [place] heart Associated angina: without angina Qualified Code(s): I25.810 - Atherosclerosis of coronary artery bypass graft(s) without angina pectoris (8) Chronic combined systolic and diastolic CHF (congestive heart failure) Current Visit: Yes Status: Chronic Assessment and plan: Hx of chronic combined systolic and diastolic CHF. Stable. Echocardiogram on 11/03/18 shows LVEF of 20-25%, severely dilated left ventricle, severe global left ventricular systolic dysfunction, mild left ventricular diastolic dysfunction, atypical septal motion consistent with postoperative status, normal right ventricular structure and function, bioprosthetic aortic valve grossly appears well-seated, leaflets not well visualized, normal function by Doppler. Mild mitral regurgitation. No evidence of pulmonary hypertension. Continuous cardiac monitoring. Monitor I&O and fluid intake. (9) PVD (peripheral vascular disease) Current Visit: Yes Status: Chronic Assessment and plan: Hx of chronic PVD. Monitor pulses and blood flow status. (10) DVT prophylaxis Current Visit: Yes Status: Acute Assessment and plan: Bilateral SCDs for DVT prophylaxis d/t recent surgery. - Time Spent With Patient Total time spent is greater than 50% in coordination of care (as documented) at patient's floor/unit and/or counseling patient: Internal Medicine - CN: HPI - Data of Consult Patient: new to practice Requesting Physician: Lucas Toussaint, - Consult Narrative Reason for consult: Medical mgmt of DM History of present illness: Mr. Villalpando is a 68 year old male w/PMH of CAD, PAD, CHF class III, BiV ICD, HTN, HLD, DM, CVA in 2003, and ischemic cardiomyopathy presents for consult from Podiatry for medical mgmt of pts. DM. Pt. underwent indication of left great toe today as well as skin grafts on right foot ulcer. He reports long history of diabetes as well as previous amputations. Patient reports replacement of defibrillator/pacemaker 3 weeks ago. Patient's diabetes is currently controlled with insulin and oral antihyperglycemic medications. Patient reports pain in bilateral feet but denies recent illness, fever, chills, nausea, vomiting, headache, changes in vision, unusual bleeding, chest pain, shortness of breath, chest congestion, cough, abdominal pain, diarrhea, constipation, numbness, tingling, dizziness, lightheadedness, pre-syncope, or syncope. Past Med Surg Social Fam HX - Past Medical History Source: patient, old records reviewed Medical history: cardiomyopathy, CHF, coronary artery disease, CVA (2003 w/o residual weakess or deficits), diabetes, hyperlipidemia, hypertension, peripheral artery disease, valvular heart disease Additional medical history: gangrene. non-pressure chronic ulcer of other part of unspecified foot with unsepcified severity, right foot. status post aortic valve replacement. s/p bupass. s/p BiVICD. PAD. stroke. pacemaker/defibrillator. gangrene toe #1, R foot ulcer Psychiatric history: no psych history - Past Surgical History Surgical History: coronary bypass (CABG) (Triple), heart valve replacement, pacemaker/AICD (Replaced 3 weeks ago), vascular surgery Additional surgical history: Left vascular surgery. right foot surgery - Social History Smoking Status: Former smoker Packs per day: Smoked 1 PPWeek - Reports quitting 40 years ago Smokeless Tobacco Status: No Alcohol use: none Drug use: none Current living situation: Home Activity Level: Uses cane/walker Recent Out of Country Travel Within the Last 8 Weeks: No Exposure or Possible Exposure to Illness During Travel: No - Family History Mother Adopted: No Living Status: Still Living Hx Family Cardiac Disorders: Yes (CAD) Hx Family Endocrine Disorder: Yes (DM) Father Race: Family Member Ethnicity: Non- Living Status: Age at : 67 Cause of : Stomach Aneurysm Hx Family Cardiac Disorders: Yes (CAD, Aneurysm (stomach)) Hx Family Endocrine Disorder: Yes (DM) Sister Race: Family Member Ethnicity: Non- Living Status: Still Living Hx Family Endocrine Disorder: Yes (DM) - Constitutional Constitutional: as per HPI, falls (Reports falling in July 2018 and injuring right shoulder) - EENT Eyes: as per HPI Ears: as per HPI Nose, mouth and throat: as per HPI - Breasts Breasts: as per HPI - Cardiovascular Cardiovascular ROS IM: as per HPI - Respiratory Respiratory: as per HPI - Gastrointestinal Gastrointestinal: as per HPI - Genitourinary Genitourinary ROS male: as per HPI - Musculoskeletal Musculoskeletal ROS IM: as per HPI - Integumentary Integumentary IM: as per HPI, skin ulcer (Bottom of rt foot) - Neurological Neurological ROS: as per HPI - Psychiatric Psychiatric: as per HPI - Endocrine Endocrine IM: as per HPI - Hematologic/Lymphatic Hematologic/Lymphatic: as per HPI - Allergic/Immunologic Allergic/Immunologic: as per HPI Internal Medicine - CN: Meds Enalapril Maleate [Vasotec] 10 mg PO BID 12/17/15 [History] Furosemide [Lasix] 20 mg PO DAILY 12/17/15 [History] Simvastatin [Zocor] 40 mg PO QPM 12/17/15 [History] SitaGLIPtin [Januvia] 100 mg PO DAILY 12/17/15 [History] Sotalol [Betapace] 80 mg PO BID 12/17/15 [History] glipiZIDE [Glipizide] 10 mg PO DAILY 12/17/15 [History] metFORMIN [Glucophage] 1,000 mg PO BIDWM 12/17/15 [History] Carvedilol [Coreg] 6.25 mg PO BID 08/17/17 [History] Insulin Glargine,Hum.rec.anlog [Basaglar Kwikpen U-100] 30 unit SQ QAM 10/15/17 [History] Clopidogrel [Plavix] 75 mg PO DAILY #30 tablet 11/10/18 [Rx] Spironolactone [Aldactone] 25 mg PO BID 11/10/18 [History] Allergy/AdvReac Type Severity Reaction Status Date / Time codeine Allergy Rash Verified 12/28/18 15:21 Hospitalist - CN: Exam - Constitutional Vitals: Temp Pulse Resp BP Pulse Ox 98.6 F 79 16 117/62 97 12/30/18 23:23 12/30/18 23:23 12/30/18 23:23 12/30/18 23:23 12/30/18 23:23 General appearance IM: Present: cooperative, mild distress (Bilateral foot pain), A&O X 3, pleasant, answers questions appropriately Exam: Patient examined at bedside. Patient reports pain in bilateral feet (left foot from great toe amputation yesterday and right foot from skin grafting to foot ulcer). Patient denies any other symptoms or complaints on exam. VS: 98.6F temp, HR 79, RR 16, BP 117/62, SPO2 97% on room air. - Head Head exam: Present: atraumatic, normal inspection - Eye Eye exam: Present: normal appearance, PERRL, conjuntiva pink, sclera anicteric Pupils: Present: normal accommodation, PERRL - ENT ENT exam: Present: normal exam - Neck Neck exam general surgery: Present: normal inspection, supple, trachea midline - Respiratory Respiratory exam: Present: CTAB - Cardiovascular Cardiovascular exam IM: Present: RRR, +S1, +S2 - GI/Abdominal GI/Abdominal exam IM: Present: normal bowel sounds, soft, no peritoneal signs - Rectal Rectal exam: Present: deferred - Additional comments: exam deferred. - Extremities Exam Extremities exam IM: Present: pedal edema, warm, radial pulses palpable and symmetrical - Expanded Lower Extremities Exam Foot/Toe exam: Present: swelling, tenderness - Back Exam Back exam: Present: normal inspection - Neurological Exam Neurological exam: Present: alert, CN II-XII intact, oriented X3, no focal deficits, strengths equal and symetr throughout - Psychiatric Psychiatric exam: Present: normal affect, normal mood - Skin Skin exam IM: Present: dry, intact Consult Discharge Plan - Plan Referrals: Aditya Espinoza Jr, MD [Primary Care Provider] -
[2018-12-31] MEDS ORDERED: tiZANidine 4 MG TABLET PO PRN (02:39)
[2018-12-31] MEDS ORDERED: *HR* GlipiZIDE 5 MG TABLET PO SCH (07:30)
[2018-12-31 07:42] LABS: Hematocrit 35.9 % (37.5-50.1); Mean Corpuscular HGB Conc 32.3 g/dL (31.6-35.5); Mean Corpuscular Hemoglobin 28.1 pg (28.0-33.3); Mean Corpuscular Volume 86.9 fL (83.0-100.0); Platelet Count 240 K/mcL (140-400); Red Blood Count 4.13 M/mcL (4.19-5.50); Red Cell Distribution Width 13.4 % (11.5-14.5); White Blood Count 8.8 K/mcL (4.3-11.1)
[2018-12-31 07:53] LABS: BUN/Creatinine Ratio 28 (6-26); Blood Urea Nitrogen 20 mg/dL (8-23); Calcium 9.7 mg/dL (8.6-10.3); Carbon Dioxide 25 mEq/L (23-29); Chloride 104 mEq/L (98-107); Chol/HDL Ratio 4.8 (0-4.9); Cholesterol 159 mg/dL (< 200); Glucose 168 mg/dL (70-105); HDL Cholesterol 33 mg/dL (40-59); LDL Cholesterol,Calculated 96 mg/dL (0-99); Osmolality,Calculated 290 (280-300); Potassium 4.5 mEq/L (3.5-5.1); Sodium 137 mEq/L (136-145); Triglycerides 148 mg/dL (< 150); eGFR For African Americans > 60 (> 60); eGFR For Non-African Americans > 60 (> 60)
[2018-12-31 08:00] LABS: Hemoglobin 11.6 g/dL (12.9-16.9)
[2018-12-31 08:18] LABS: Estimated Average Glucose 237 mg/dl; Hemoglobin A1C 9.9 %
[2018-12-31] MEDS: Furosemide 20 MG TABLET PO SCH (08:39)
[2018-12-31] MEDS: Spironolactone 25 MG TABLET PO SCH ×2 (08:39→21:48)
[2018-12-31] MEDS: Lisinopril 20 MG TABLET PO SCH ×2 (08:39→21:48)
[2018-12-31] MEDS: Piperacillin/Tazobactam 3.375 GM in 0.9 % Sodium Chloride Mini Bag 100 ML IVPB SCH ×2 (08:40→18:01)
[2018-12-31] MEDS ORDERED: Insulin DETEMIR 100 UNIT/ML X5UNITS SQ SCH (09:00)
[2018-12-31] MEDS ORDERED: *HR* SitaGLIPtin 100 MG TABLET PO SCH (09:00)
[2018-12-31] MEDS: Insulin DETEMIR 100 UNIT/ML X5UNITS SQ SCH (10:32)
--- NOTE | 2018-12-31 11:12 | Internal Med Progress Note ---
Hospitalist Progress Note - Encounter Date of Encounter: 12/31/18 Time of Encounter: 09:30 - Subjective Interval History: Mr. 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 We were consulted for medical management of his multiple medical comorbidities. Patient was seen and examined at bedside. He denied any chest pain/shortness of breath. He is tolerating oral intake well. His pain is tolerable with current pain medication - Exam Vitals: Temp Pulse Resp BP Pulse Ox 98.2 F 84 14 145/80 96 12/31/18 07:10 12/31/18 07:10 12/31/18 07:10 12/31/18 07:10 12/31/18 07:10 Exam: Gen: Alert, awake, Oriented to time,place and person Chest: Diminished breath sounds B/L, No wheezing, No crackles, No rales Heart: S1S2+ RRR No murmurs Abd: Soft, NT, BS +, No organomegaly Ext: s/p left great toe and distal metatarsal amputation with dressing on s/p debridement of Rt foot ulcer with graft placement No calf tenderness noticed. Neuro : No acute focal neuro deficits noticed Skin: No rash. - Assessment and Plan (1) Complete traumatic amputation of left great toe, initial encounter Current Visit: Yes Status: Acute Assessment and Plan: s/p left great toe and distal metatarsal amputation POD #1 cont wound care as per primary team podiatry recommendations cont empirical IV abx chel and Melvin Will talk to surgeon about any concerns for Osteonyelitis and how long he wanted cont IV Abx (2) Diabetic ulcer of right foot Current Visit: Yes Status: Chronic Assessment and Plan: s/p debridement of ulcer with skin grafts POD #1 Cont local wound care Cont empiricla abx on pain medication as needed (3) CAD (coronary artery disease) Current Visit: Yes Status: Chronic Assessment and Plan: Hx of chronic CAD Continue HTN and HLD medications Cont on cardiac monitoring. (4) DVT prophylaxis Current Visit: Yes Status: Acute Assessment and Plan: Bilateral SCDs for DVT prophylaxis d/t recent surgery If surgery ok, will start him on Heparin SQ (5) PVD (peripheral vascular disease) Current Visit: Yes Status: Chronic Assessment and Plan: Hx of chronic PVD continue home medications (6) Diabetes mellitus Current Visit: Yes Status: Chronic Assessment and Plan: His HbA1C 9.9 on ADA diet on ISS + Levemir (7) Chronic combined systolic and diastolic CHF (congestive heart failure) Current Visit: Yes Status: Chronic Assessment and Plan: Echocardiogram on 11/03/18 shows LVEF of 20-25%, severely dilated left ventricle, severe global left ventricular systolic dysfunction, mild left ventricular diastolic dysfunction Continuous cardiac monitoring. Monitor I&O and fluid intake. resumed all home meds (8) HTN (hypertension) Current Visit: Yes Status: Chronic Assessment and Plan: His BP stable and well controlled cont home meds (9) HLD (hyperlipidemia) Current Visit: Yes Status: Chronic Assessment and Plan: Continue Zocor. Reviewed his FLP - WNL (10) ICD (implantable cardioverter-defibrillator), biventricular, in situ Current Visit: Yes Status: Chronic Assessment and Plan: Hx of chronic ICD, biventricular. Pt. reports this device was replaced three weeks ago. Cardiac monitoring. Continue patient's Plavix and Betapace. - Time Spent with Patient Total time spent is greater than 50% in coordination of care (as documented) at patient's floor/unit and/or counseling patient: Internal Medicine: Result - Labs CBC & Chem 7: 12/31/18 06:28 12/31/18 06:28 Labs: Short CBC 12/31/18 Range/Units 06:28 WBC 8.8 (4.3-11.1) K/mcL Hgb 11.6 L D (12.9-16.9) g/dL Hct 35.9 L (37.5-50.1) % Plt Count 240 (140-400) K/mcL BMP 12/31/18 06:28 Sodium 137 Potassium 4.5 Chloride 104 Carbon Dioxide 25 BUN 20 Creatinine 0.71 Glucose 168 H Calcium 9.7 Consult Discharge Plan - Plan Referrals: Aditya Espinoza Jr, MD [Primary Care Provider] - (2) Diabetic ulcer of right foot Qualifiers: Diabetic foot ulcer location: unspecified part of foot Diabetes mellitus type: type 2 Non-pressure ulcer stage: unspecified non-pressure ulcer stage Qualified Code(s): E11.621 - Type 2 diabetes mellitus with foot ulcer; L97.519 - Non-pressure chronic ulcer of other part of right foot with unspecified severity (3) CAD (coronary artery disease) Qualifiers: Coronary Disease-Associated Artery/Lesion type: bypass graft [place] vs. 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
--- NOTE | 2018-12-31 17:23 | Podiatry Progress Note ---
Date of Encounter: 12/31/18 Time of Encounter: 17:00 - Assessment and Plan (1) Osteomyelitis Current Visit: Yes Status: Acute Assessment: S/P left great toe and distal metatarsal #[address] Toussaint on 12/30/18 Incision well approximated, maceration noted to medial aspect of foot Moderate amount of serosanguinous drainage noted Moderate erythema and edema noted to left foot, extending to midfoot WBC 8.8 HGB 11.6 Plan: Postop xray ordered Plan for discharge tomorrow Continue IV ATB Limited weight bearing, up to chair and bsc only Heel weight bearing only Cleansed with 0.9 NS Painted with betadine, covered with 4x4 dry gauze, kerlix, ABD pad, and medipore tape Qualifiers: Osteomyelitis type: unspecified type Osteomyelitis location: foot Laterality: left Qualified Code(s): M86.9 - Osteomyelitis, unspecified (2) Diabetic foot ulcer Current Visit: Yes Status: Chronic Assessment: S/P derbidement of right 1 x 1 cm diabetic foot ulcer with puraply graft fawn cement on 12/30/[address] Toussaint Graft in tact No erythema, no edema noted Plan: Hospitalist consulted for diabetic/medical management- appreciate recommendations Do not change dressing Wear surgical shoe when ambulating, limited ambulation, heel weight bearing only Continue IV ATB Plan for d/c tomorrow Removed old dressing Placed adpatic, 4x4 dry gauze, abd pad, kerlix, and secured with medipore tape Qualifiers: Diabetic foot ulcer location: other Diabetes mellitus type: type 2 Laterality: right Non-pressure ulcer stage: with fat layer exposed Qualified Code(s): E11.621 - Type 2 diabetes mellitus with foot ulcer; L97.512 - Non- pressure chronic ulcer of other part of right foot with fat layer exposed Subjective Principal diagnosis: left great toe amputation and graft placement Interval history: Patient awake in bed. at bedside. Patient underwent left toe amputation and debridement of right foot ulcer with Dr. Toussaint 12/30/18. Patient denies any fevers, chills, nausea, vomiting, or diarrhea. Patient denies any calf pain, chest pain, or shortness of breath. Patient denies any overall pain. No other questions or concerns at this time. Objective - Vital Signs Vital Signs: Vital Signs Temp Pulse Resp BP Pulse Ox 06/07/19 15:27 98.6 F 82 14 132/75 97 12/31/18 11:10 98.5 F 83 15 135/77 96 12/31/18 07:10 98.2 F 84 14 145/80 96 12/31/18 03:34 98.5 F 77 16 111/68 95 12/30/18 23:23 98.6 F 79 16 117/62 97 12/30/18 19:15 98 F 66 16 121/70 96 Intake and Output 12/31/18 12/31/18 12/31/18 07:59 15:59 23:59 Intake Total 100 / 1560 1460 / 1560 Output Total 600 / 600 Balance -500 / 960 1460 / 960 Intake: IV Fluids 100 / 1200 1100 / 1200 Lactated Ringers 1,000 ML @ 25 1000 / 1000 mls/hr IVC .Q24H TJ Rx#: [id number] Zosyn 3.375 GM In 0.9 % Sodium 100 / 200 100 / 200 Chloride (Mini-Bag +) 100 ML @ 25 mls/hr IVPB Q8HR TJ Rx#: [id number] Oral 360 / 360 Output: Urine 600 / 600 Other: Meal Lunch Percent of Meal Consumed 80% Weight 81.1 kg Blood Glucose* 164 192 Patient Weight 12/31/18 23:59 Weight 81.1 kg - Exam Exam: Constitiutional: Alert and oriented x 3. Well nourished. No acute distress noted Vascular: 1/4 DP/PT bilaterally, CFT <3 sec to all digits LLE, TMA RLE, warm to warm from tibia to toes/stump bilaterally Neurologic: Absent sensation to touch Dermatologic: RLE TMA, Carcamo grade I ulceration right plantar midfoot, graft in tact, left metatarsal incision well approximated, maceration noted to distal tip, medial aspect of foot, moderate amount of serosanguinous drainage noted, erythema noted extending to midfoot Musculoskeletal: 3/5 muscle strength and normal tone bilaterally. - Lab Result Diagrams: 12/31/18 06:28 12/31/18 06:28 Labs: Abnormal lab results RBC 4.13 M/mcL (4.19-5.50) L 12/31/18 06:28 Hgb 11.6 g/dL (12.9-16.9) L D 06/07/19 06:28 Hct 35.9 % (37.5-50.1) L 12/31/18 06:28 28 (6-26) H 12/31/18 06:28 Glucose 168 mg/dL (70-105) H 12/31/18 06:28 POC Glucose 192 mg/dL (70-99) H 12/31/18 15:29 9.9 % (-5.6) H 12/31/18 06:28 33 mg/dL (40-59) L 12/31/18 06:28 Consult Discharge Plan - Plan Referrals: Aditya Espinoza Jr, MD [Primary Care Provider] -
--- NOTE | 2018-12-31 17:40 | Orthopedic Operative Note ---
Date of procedure: 12/30/18 Pre-op diagnosis: #1: Gangrene left great toe. #2 diabetic foot ulcer right plantar foot Post-op diagnosis: same Procedure: 12/31/18 17:40 #1: Amputation of left great toe and metatarsal primary closure #2: Surgical wound bed preparation and debridement with application of graft plantar right midfoot Implants: None Complications: None Anesthesia: MAC, local Local Anesthetics: Other (Ropivacaine plain) Surgeon: Lucas Toussaint Was there an apartment community assistant manager present: No Estimated blood loss (cc): 5 Tourniquet Time (Minutes): 0 Specimen: Left great toe Condition: stable Disposition: floor Procedure in Detail: 12/31/18 17:42 Details in summary of procedure: Patient was brought to surgical suite. Sign in procedure was performed. Patient transferred to the surgical table and positioned properly safely securely. Both feet were then elevated on a foam block. Anesthetic timeout was taken. Right ankle was prepped with alcohol 3 times and a modified ankle block was carried out without difficulty or complication. No tourniquet was used. Both feet were then prepped and draped in usual sterile manner. Surgical timeout was taken. We noted dry gangrene of the left great toe.. A standard medial incision was begun on the medial aspect the head of the first metatarsal and brought distally and then laterally just proximal to the line of demarcation of the gangrene to the first webspace. The plantar incision was then begun medial aspect first metatarsal at that juncture of the dorsal flap incision. It was then brought plantarly and laterally meeting on the lateral aspect of the great toe to the level of the dorsal incision. A full-thickness flap was then raised level of periosteum the proximal phalanx to the MTPJ dorsally plantarly and medially. The capsular structures were incised at the base the proximal phalanx level of the MTPJ. The toe was then disarticulated and sent for gross microscopic. Fortunately there is no evidence of necrotic tissue or nonviable tissue the remainder the wound. We adjusted the dorsal and plantar flaps there was no enough soft tissue coverage to close the wound without tension. At that junctu re with gentle retraction the distal aspect first metatarsal was resected dorsal plantar fashion using a command power saw. Remainder the distal metatarsal was remodeled using a rongeur Josef nasal rasp. Wound was flushed with copious amounts sterile saline. The wound was noted to bleed freely without necessitating use of Bovie ligature. Dorsal flap was then remodeled using a #15 scalpel blade and pickup. At that point we can then close the wound without tension. The wound was flushed with copious amounts sterile saline finding no bone chips or debris the flexor tendon was then sewn to the dorsal aspect of the distal first metatarsal and the extensor tendon with 3-0 Vicryl. Skin was then closed with interrupted sutures of 3-0 Prolene. No complications ensued. Attention was then turned the wound on the plantar aspect of the right midfoot. The wound measured 1.5 cm x 1.5 cm x 0.3 cm. No undermining sinus tract or tunneling no evidence of infection. No cellulitis no lymphangitis odor purulence fluctuance or necrosis. Nonviable tissue and fibrinous tissue within the wound and around the periphery the wound was debridement of wound bed was surgically prepared with a #15 scalpel blade. This was performed down to level subcutaneous tissue. Bleeding controlled irrigation pressure. That point a PuraPly antimicrobial wound matrix graft was then applied and anchored with Steri-Strips and dressed accordingly with Adaptic 4 x 4's Kerlix compressive dressing. Left foot was then dressed with Adaptic 4 x 4's and mild compressive dressing. Prior to closure of each wound there were sprayed with PRP. No complications ensued. Estimated blood loss totally 5 mL patient was sent to holding room in good condition with vital signs stable.
--- NOTE | 2018-12-31 22:33 | Electrocardiograph Report ---
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
[2019-01-01] MEDS: Piperacillin/Tazobactam 3.375 GM in 0.9 % Sodium Chloride Mini Bag 100 ML IVPB SCH ×2 (01:10→08:04)
[2019-01-01 01:49] LABS: Hematocrit 33.3 % (37.5-50.1); Hemoglobin 10.9 g/dL (12.9-16.9); Mean Corpuscular HGB Conc 32.7 g/dL (31.6-35.5); Mean Corpuscular Hemoglobin 27.9 pg (28.0-33.3); Mean Corpuscular Volume 85.4 fL (83.0-100.0); Mean Platelet Volume 9.6 fL (9.4-12.4); Platelet Count 216 K/mcL (140-400); Red Cell Distribution Width 13.3 % (11.5-14.5); White Blood Count 8.5 K/mcL (4.3-11.1)
[2019-01-01 02:12] LABS: BUN/Creatinine Ratio 21 (6-26); Blood Urea Nitrogen 21 mg/dL (8-23); Calcium 8.9 mg/dL (8.6-10.3); Carbon Dioxide 25 mEq/L (23-29); Chloride 102 mEq/L (98-107); Glucose 161 mg/dL (70-105); Magnesium 1.9 mg/dL (1.6-2.6); Osmolality,Calculated 286 (280-300); Potassium 3.9 mEq/L (3.5-5.1); Sodium 135 mEq/L (136-145); eGFR For African Americans > 60 (> 60); eGFR For Non-African Americans > 60 (> 60)
[2019-01-01] MEDS: Insulin LISPRO 300 UNITS/3 ML VIAL SQ SCH ×2 (07:29→11:26)
[2019-01-01] MEDS: Lisinopril 20 MG TABLET PO SCH (08:03)
[2019-01-01] MEDS: Spironolactone 25 MG TABLET PO SCH (08:03)
[2019-01-01] MEDS: Furosemide 20 MG TABLET PO SCH (08:03)
[2019-01-01] MEDS: Insulin DETEMIR 100 UNIT/ML X5UNITS SQ SCH (08:14)
[2019-01-01 10:41] VITALS: BP 99/60
[2019-01-01] MEDS: traMADol 50 MG TABLET PO PRN (11:27)
--- NOTE | 2019-01-01 13:47 | Discharge Summary ---
Date of Encounter: 01/01/19 Time of Encounter: 13:45 - NOTES TO OUTPATIENT PROVIDER Notes to Outpatient Provider: Follow-up postoperatively were dressing changes and observation of surgical wound Orders not resulted at time of discharge: Pending orders 12/30/18 12:01 Surgical Pathology [PTH] Routine 01/02/19 04:00 BMP [Basic Metabolic Panel] AM 0400 CBC no Diff [Complete Blood Count w/o Diff] [HEME] AM 0400 - Discharge Diagnosis (1) Gangrene of toe of left foot Priority: Primary Status: Acute Procedures and tests throughout hospitalization: #1: Patient underwent amputation of great toe and first metatarsal gangrene. Wounds successfully healing uneventfully without complication no evidence of dehiscence infection drainage cellulitis. Sutures intact. Wound well coaptated. Graft of ulcer of right foot intact. All healing uneventfully. Labs on day of discharge: Labs from last 24 hours 01/01/19 01/01/19 12/31/18 01:26 01:26 19:52 WBC 8.5 RBC 3.90 L Hgb 10.9 L Hct 33.3 L MCV 85.4 MCH 27.9 L MCHC 32.7 RDW 13.3 Plt Count 216 MPV 9.6 Sodium 135 L Potassium 3.9 Chloride 102 Carbon Dioxide 25 BUN 21 Creatinine 1.00 Est GFR ( Amer) > 60 Est GFR (Non-Af Amer) > 60 BUN/Creatinine Ratio 21 Glucose 161 H POC Glucose 326 H Calculated Osmolality 286 Calcium 8.9 Magnesium 1.9 12/31/18 12/31/18 12/31/18 15:29 11:09 07:14 WBC RBC Hgb Hct MCV MCH MCHC RDW Plt Count MPV Sodium Potassium Chloride Carbon Dioxide BUN Creatinine Est GFR ( Amer) Est GFR (Non-Af Amer) BUN/Creatinine Ratio Glucose POC Glucose 192 H 224 H 164 H Calculated Osmolality Calcium Magnesium - Impressions ITS Impressions Foot X-Ray 12/31/18 17:29 IMPRESSION: Status post interval transmetatarsal amputation of left great toe with soft tissue gas at the surgical site present. D/ / 01/01/2019 08:49:12 Rk Car MD / candie Interpreting Provider: Rk Car MD Foot X-Ray 12/31/18 17:29 IMPRESSION: Status post previous transmetatarsal amputation of the right forefoot. No acute osseous injury is seen. D/ / 01/01/2019 08:45:31 Rk Car MD / candie Interpreting Provider: Rk Car MD - Hospital Course Hospital course: Mr. Villalpando is a 68 year old male - Time Spent with Patient Total time spent providing and/or coordinating discharge services: Less than 30 minutes Specific discharge activities: Patient be homebound. Weight to left heel only to transfer from chair to wheelchair bed etc. use postop shoes and walker to offload both feet. Keep dressings dry clean and intact do not change. Do not remove. Questions concerns contact Dr. Toussaint immediately [phone] - Discharge Medications Prescriptions: No Action Sotalol [Betapace] 80 mg PO BID SitaGLIPtin [Januvia] 100 mg PO DAILY Simvastatin [Zocor] 40 mg PO QPM metFORMIN [Glucophage] 1,000 mg PO BIDWM Furosemide [Lasix] 20 mg PO DAILY glipiZIDE [Glipizide] 10 mg PO DAILY Enalapril Maleate [Vasotec] 10 mg PO BID Carvedilol [Coreg] 6.25 mg PO BID Insulin Glargine,Hum.rec.anlog [[place] U-100] 30 unit SQ QAM Spironolactone [Aldactone] 25 mg PO BID Clopidogrel [Plavix] 75 mg PO DAILY #30 tablet Home Medications: Enalapril Maleate [Vasotec] 10 mg PO BID 12/17/15 [History] Furosemide [Lasix] 20 mg PO DAILY 12/17/15 [History] Simvastatin [Zocor] 40 mg PO QPM 12/17/15 [History] SitaGLIPtin [Januvia] 100 mg PO DAILY 12/17/15 [History] Sotalol [Betapace] 80 mg PO BID 12/17/15 [History] glipiZIDE [Glipizide] 10 mg PO DAILY 12/17/15 [History] metFORMIN [Glucophage] 1,000 mg PO BIDWM 12/17/15 [History] Carvedilol [Coreg] 6.25 mg PO BID 08/17/17 [History] Insulin Glargine,Hum.rec.anlog [Basaglar Kwikpen U-100] 30 unit SQ QAM 10/15/17 [History] Clopidogrel [Plavix] 75 mg PO DAILY #30 tablet 11/10/18 [Rx] Spironolactone [Aldactone] 25 mg PO BID 11/10/18 [History] Allergies/Adverse Reactions: Allergy/AdvReac Type Severity Reaction Status Date / Time codeine Allergy Rash Verified 12/28/18 15:21 Date of admission: 12/31/18 22:17 Primary care physician: Aditya Espinoza Jr, MD Consults: 12/30/18 13:39 Consult to Hospitalist [CONS] Routine Consulting Provider: Hospitalist Gissell Reason for Consult: Diabetes mellitus type 2 with multiple comorbidities Call Completed: No 12/31/18 02:57 Consult to Occupational Therapy [CONS] Routine Comment: Evaluate, develop and implement POC Reason for Consult: Patient had amputation of left great toe as well as skin grafting to right foot for chronic foot ulcer. Patient reports use of cane with ambulation. Please assess patient for ambulation strength, stability, safety, and possible rehabilitation needs for post-discharge planning. Does patient have active BEDREST order?: No Is patient medically & hemodynamically stable?: Yes Patient assessed for mobility or mobilized this visit?: No Discharging clinician: Lucas Toussaint Anticipated date of discharge: 01/01/19 - Patient Status Disposition: Home, Self-Care Condition: Good Functional capacity at discharge: uses cane/walker Overall status at discharge: patient is progressing back to baseline - Discharge Instructions Follow Up With: Aditya Espinoza Jr, MD [Primary Care Provider] - Lucas Toussaint DPM [Partnered Physician] - Additional Instructions: Patient to be followed up in clinic in 72 hours. Please call [phone] for appointment time on Thursday or Thursday. - Diet and Activity Activity: ambulate only with your walker Diet: diabetic diet (Please keep dressing dry clean and intact. Do not remove concerns questions or complications contact Dr. Toussaint immediately [phone])
== END 2019-01-01 15:28 | disposition home or self-care (01) ==
LOC: 3BNU 07:57 → SAMDAY 07:57 → 3BNU 13:36
PROVIDERS: ADMIT Podiatrist Foot Surgery; ATTEND Podiatrist Foot Surgery

== ENCOUNTER 2019-01-26 10:04 | Observation (INO) ==
[2019-01-26] MEDS ORDERED: Ondansetron 4 MG/2 ML VIAL ONE (10:15)
[2019-01-26] MEDS ORDERED: *HR* Heparin 5,000 UNIT/ML VIAL ONE (10:15)
[2019-01-26] MEDS ORDERED: Dexamethasone 4 MG/ML VIAL ONE (10:15)
[2019-01-26] MEDS ORDERED: Lidocaine -MPF 2% 2 ML VIAL ONE (10:15)
[2019-01-26] MEDS ORDERED: Lidocaine -MPF 4% 5 ML AMPUL ONE (10:15)
[2019-01-26] MEDS ORDERED: *HR* Propofol 200 MG/20 ML VIAL IVP ONE (10:16)
[2019-01-26] MEDS ORDERED: *HR* FentaNYL (PF) 100 MCG/2 ML VIAL ONE (10:16)
[2019-01-26] MEDS ORDERED: *HR* Midazolam HCl 2 MG/2 ML VIAL ONE (10:16)
[2019-01-26] MEDS ORDERED: CeFAZolin Syr 2,000MG/20 ML 2,000 MG/20 ML SYRINGE IVPB ONE (10:29)
[2019-01-26] MEDS ORDERED: Ringers Solution, Lactated 1,000 ML IVC SCH (10:30)
[2019-01-26] MEDS ORDERED: *HR* Etomidate 40 MG/20 ML VIAL IVP ONE (10:36)
[2019-01-26] MEDS ORDERED: *HR* FentaNYL (PF) 100 MCG/2 ML VIAL IVP PRN (10:52)
[2019-01-26] MEDS ORDERED: *HR* OxyCODONE Immed Rel 5 MG TABLET PO PRN ×2 (10:52→20:31)
[2019-01-26] MEDS ORDERED: *HR* Labetalol 20 MG/4 ML SYRINGE IVP PRN ×2 (10:52→20:31)
[2019-01-26] MEDS ORDERED: Ondansetron 4 MG/2 ML VIAL IVP ONE (10:52)
[2019-01-26] MEDS ORDERED: *HR* Promethazine 25 MG/ML VIAL IVP PRN ×2 (10:52→20:31)
[2019-01-26] MEDS ORDERED: *HR* Norepinephrine 4 MG/4 ML VIAL IVC ONE (11:39)
[2019-01-26] MEDS ORDERED: Heparin 1,000 UNITS/500 mL 500 ML ONE ×3 (11:45→12:49)
[2019-01-26] MEDS ORDERED: Vancomycin 1,000 MG VIAL ONE ×3 (11:56→13:49)
[2019-01-26] MEDS ORDERED: Calcium Gluconate 1,000 MG/10 ML VIAL ONE ×2 (11:56→12:17)
[2019-01-26] MEDS ORDERED: Vancomycin 1,000 MG, Sodium Chloride IRRigation 1,000 ML IR ONE (12:00)
[2019-01-26] MEDS ORDERED: Heparin 1,000 UNITS/500 mL 1,000 ML ONE (12:17)
[2019-01-26] MEDS ORDERED: EPHEDrine 50 MG/ML VIAL ONE (13:06)
[2019-01-26] MEDS ORDERED: 0.9 % Sodium Chloride Mini Bag 100 ML ONE (13:50)
[2019-01-26] MEDS ORDERED: *HR* Magnesium Sulfate 1 GM/2 ML VIAL ONE (14:09)
[2019-01-26] MEDS ORDERED: *HR* Phenylephrine 10 MG/ML VIAL ONE ×2 (14:26→16:51)
[2019-01-26] MEDS ORDERED: Protamine Sulfate 50 MG/5 ML VIAL IVP ONE (17:23)
[2019-01-26] MEDS ORDERED: Neosporin OINT 15 GM TUBE TP ONE (18:04)
[2019-01-26] MEDS ORDERED: Acetaminophen IV 1,000 MG/100 ML INFUS..BTL IVPB ONE (19:20)
[2019-01-26 19:48] LABS: Basophils % 0.1 %; Hematocrit 23.5 % (37.5-50.1); Hemoglobin 7.7 g/dL (12.9-16.9); Immature Granulocytes % 0.9 % (0-4); Lymphocytes % 12.9 %; Mean Corpuscular HGB Conc 32.8 g/dL (31.6-35.5); Mean Corpuscular Hemoglobin 27.2 pg (28.0-33.3); Monocytes # 0.4 K/mcL (0.0-1.3); Monocytes % 4.8 %; Neutrophils # 6.2 K/mcL (1.6-8.9); Platelet Count 179 K/mcL (140-400); Red Blood Count 2.83 M/mcL (4.19-5.50); Red Cell Distribution Width 13.2 % (11.5-14.5); Segmented Neutrophils % 81.3 %; White Blood Count 7.7 K/mcL (4.3-11.1)
[2019-01-26] MEDS ORDERED: 0.9 % Sodium Chloride 1,000 ML IVC SCH (20:31)
[2019-01-26] MEDS ORDERED: D5% in Water 1,000 ML IVC PRN (20:31)
[2019-01-26] MEDS ORDERED: *HR* HYDROcodone/Acet 5/325 mg TABLET PO PRN (20:31)
[2019-01-26] MEDS ORDERED: Naloxone 0.4 MG/ML INJ IVP PRN (20:31)
[2019-01-26] MEDS ORDERED: Dextrose Gel 15 GM/37.5 ML TUBE PO PRN ×2 (20:31)
[2019-01-26] MEDS ORDERED: *HR* Dextrose 50 % in Water (Syg) 50 ML SYRINGE IVP PRN (20:31)
[2019-01-26] MEDS ORDERED: Acetaminophen 325 MG TABLET PO PRN (20:31)
[2019-01-26] MEDS ORDERED: Insulin LISPRO 300 UNITS/3 ML VIAL SQ SCH (21:00)
[2019-01-26] MEDS: Lisinopril 20 MG TABLET PO SCH (22:40)
[2019-01-26] MEDS: Spironolactone 25 MG TABLET PO SCH (22:40)
[2019-01-26] MEDS ORDERED: 0.9 % Sodium Chloride 250 ML ONE (22:51)
[2019-01-27] MEDS: *HR* Metoprolol 5 MG/5 ML VIAL IVP SCH ×2 (00:55→05:35)
[2019-01-27] MEDS ORDERED: *HR* Heparin 5,000 UNIT/ML VIAL SQ SCH ×2 (06:00)
[2019-01-27] MEDS: Spironolactone 25 MG TABLET PO SCH (07:59)
[2019-01-27] MEDS: Lisinopril 20 MG TABLET PO SCH (07:59)
[2019-01-27] MEDS ORDERED: carvediloL 6.25 MG TABLET PO SCH (08:00)
[2019-01-27] MEDS: Insulin LISPRO 300 UNITS/3 ML VIAL SQ SCH ×2 (08:01→11:55)
[2019-01-27 08:07] LABS: Basophils % 0.3 %; Eosinophils % 0.1 %; Hematocrit 29.6 % (37.5-50.1); Immature Granulocytes % 0.6 % (0-4); Lymphocytes # 1.9 K/mcL (0.6-4.6); Lymphocytes % 21.7 %; Mean Corpuscular HGB Conc 31.4 g/dL (31.6-35.5); Mean Corpuscular Hemoglobin 27.4 pg (28.0-33.3); Mean Corpuscular Volume 87.1 fL (83.0-100.0); Mean Platelet Volume 9.6 fL (9.4-12.4); Monocytes # 0.7 K/mcL (0.0-1.3); Monocytes % 8.3 %; Neutrophils # 5.9 K/mcL (1.6-8.9); Platelet Count 217 K/mcL (140-400); Red Cell Distribution Width 13.4 % (11.5-14.5); White Blood Count 8.6 K/mcL (4.3-11.1)
[2019-01-27 08:15] LABS: Hemoglobin 9.3 g/dL (12.9-16.9)
[2019-01-27 08:28] LABS: BUN/Creatinine Ratio 22 (6-26); Blood Urea Nitrogen 14 mg/dL (8-23); Calcium 8.4 mg/dL (8.6-10.3); Carbon Dioxide 23 mEq/L (23-29); Chloride 107 mEq/L (98-107); Glucose 93 mg/dL (70-105); Magnesium 1.8 mg/dL (1.6-2.6); Osmolality,Calculated 288 (280-300); Potassium 3.8 mEq/L (3.5-5.1); Sodium 139 mEq/L (136-145); eGFR For African Americans > 60 (> 60); eGFR For Non-African Americans > 60 (> 60)
[2019-01-27] MEDS ORDERED: Furosemide 20 MG TABLET PO SCH (09:00)
[2019-01-27] MEDS ORDERED: Aspirin Enteric Coated 81 MG Tablet PO SCH (09:00)
[2019-01-27 11:28] VITALS: BP 121/71
== END 2019-01-27 15:08 | disposition home or self-care (01) | DRG 253 ==
LOC: SAMDAY 10:04 → OBSVTOIN 21:41 → INTOOBSV 21:41 → 2NNU 21:41 → UNDODISOB 01-27 15:08
PROVIDERS: ADMIT Surgery; ATTEND Surgery

== ENCOUNTER 2019-05-23 08:16 | Inpatient (IN) ==
[2019-05-23] MEDS ORDERED: Furosemide 20 MG TABLET PO PRN (09:27)
[2019-05-23] MEDS ORDERED: Naloxone 0.4 MG/ML INJ IVP PRN (09:27)
[2019-05-23] MEDS ORDERED: D5% in Water 1,000 ML IVC PRN (09:44)
[2019-05-23] MEDS ORDERED: *HR* Dextrose 50 % in Water (Syg) 50 ML SYRINGE IVP PRN (09:44)
[2019-05-23] MEDS ORDERED: Dextrose Gel 15 GM/37.5 ML TUBE PO PRN ×2 (09:44)
[2019-05-23] MEDS ORDERED: Lisinopril 20 MG TABLET PO SCH (09:45)
[2019-05-23] MEDS ORDERED: *HR* SitaGLIPtin 100 MG TABLET PO SCH (09:45)
[2019-05-23] MEDS ORDERED: Spironolactone 25 MG TABLET PO SCH ×2 (09:45→21:00)
[2019-05-23] MEDS ORDERED: *HR* OxyCODONE/APAP 5/325 TABLET PO PRN (09:55)
[2019-05-23] MEDS ORDERED: *HR* OxyCODONE/APAP 10/325 TABLET PO PRN (09:57)
[2019-05-23 11:14] LABS: INR 1.2; Prothrombin Time 13.7 Seconds (9.4-12.1)
[2019-05-23 11:16] LABS: Basophils # 0.1 K/mcL (0.0-0.2); Basophils % 0.7 %; Eosinophils # 0.2 K/mcL (0.0-0.6); Eosinophils % 2.2 %; Hemoglobin 10.6 g/dL (12.9-16.9); Immature Granulocytes % 0.5 % (0-4); Lymphocytes # 1.7 K/mcL (0.6-4.6); Lymphocytes % 22.7 %; Mean Corpuscular HGB Conc 33.1 g/dL (31.6-35.5); Mean Corpuscular Volume 81.6 fL (83.0-100.0); Mean Platelet Volume 9.4 fL (9.4-12.4); Monocytes # 0.7 K/mcL (0.0-1.3); Monocytes % 9.4 %; Platelet Count 315 K/mcL (140-400); Red Blood Count 3.92 M/mcL (4.19-5.50); Red Cell Distribution Width 14.2 % (11.5-14.5); Segmented Neutrophils % 64.5 %; White Blood Count 7.7 K/mcL (4.3-11.1)
[2019-05-23 11:17] LABS: Activated Partial Thrombo Time 33.9 Seconds (26.0-36.0)
[2019-05-23 11:29] LABS: BUN/Creatinine Ratio 20 (6-26); Blood Urea Nitrogen 14 mg/dL (8-23); Calcium 9.1 mg/dL (8.6-10.3); Carbon Dioxide 25 mEq/L (23-29); Chloride 102 mEq/L (98-107); Glucose 211 mg/dL (70-105); Osmolality,Calculated 287 (280-300); Potassium 4.3 mEq/L (3.5-5.1); Sodium 135 mEq/L (136-145); eGFR For African Americans > 60 (> 60); eGFR For Non-African Americans > 60 (> 60)
[2019-05-23] MEDS ORDERED: *HR* FentaNYL (PF) 100 MCG/2 ML VIAL ONE (12:02)
[2019-05-23] MEDS ORDERED: *HR* Midazolam HCl 2 MG/2 ML VIAL ONE (12:02)
[2019-05-23] MEDS ORDERED: *HR* Heparin 10,000 UNIT/10 ML VIAL ONE (12:02)
[2019-05-23] MEDS ORDERED: Heparin 1,000 UNITS/500 mL 500 ML ONE (12:03)
[2019-05-23] MEDS ORDERED: Isovue-300 150 ML INFUS..BTL ONE (12:03)
[2019-05-23] MEDS ORDERED: 0.9 % Sodium Chloride 1,000 ML ONE (12:03)
[2019-05-23 12:20] LABS: C-Reactive Protein 64 mg/L (Less than 10)
[2019-05-23] MEDS: Insulin LISPRO 300 UNITS/3 ML VIAL SQ SCH ×2 (14:34→17:24)
[2019-05-23] MEDS ORDERED: *HR* Metformin 500 MG TABLET PO SCH (17:00)
[2019-05-23] MEDS: *HR* Heparin 5,000 UNIT/ML VIAL SQ SCH (17:24)
[2019-05-24] MEDS: *HR* Heparin 5,000 UNIT/ML VIAL SQ SCH ×2 (05:04→18:35)
[2019-05-24] MEDS ORDERED: GlipiZIDE 5 MG TABLET PO SCH (08:00)
[2019-05-24] MEDS: Spironolactone 25 MG TABLET PO SCH (10:50)
[2019-05-24] MEDS: Lisinopril 20 MG TABLET PO SCH (10:50)
[2019-05-24] MEDS: Furosemide 20 MG TABLET PO SCH (10:52)
[2019-05-24] MEDS: Insulin LISPRO 300 UNITS/3 ML VIAL SQ SCH ×3 (10:53→18:32)
[2019-05-24] MEDS ORDERED: Insulin DETEMIR 100 UNIT/ML X5UNITS SQ SCH (21:00)
[2019-05-25 02:58] LABS: Hemoglobin 10.3 g/dL (12.9-16.9); Mean Corpuscular HGB Conc 33.2 g/dL (31.6-35.5); Mean Corpuscular Volume 81.2 fL (83.0-100.0); Mean Platelet Volume 9.6 fL (9.4-12.4); Platelet Count 307 K/mcL (140-400); Red Blood Count 3.82 M/mcL (4.19-5.50); Red Cell Distribution Width 14.2 % (11.5-14.5); White Blood Count 6.9 K/mcL (4.3-11.1)
[2019-05-25 03:17] LABS: BUN/Creatinine Ratio 28 (6-26); Blood Urea Nitrogen 23 mg/dL (8-23); Carbon Dioxide 24 mEq/L (23-29); Chloride 104 mEq/L (98-107); Glucose 170 mg/dL (70-105); Osmolality,Calculated 292 (280-300); Potassium 4.1 mEq/L (3.5-5.1); Sodium 137 mEq/L (136-145); eGFR For African Americans > 60 (> 60); eGFR For Non-African Americans > 60 (> 60)
[2019-05-25] MEDS: *HR* Heparin 5,000 UNIT/ML VIAL SQ SCH ×2 (05:02→17:04)
[2019-05-25] MEDS: Spironolactone 25 MG TABLET PO SCH (08:36)
[2019-05-25] MEDS: Furosemide 20 MG TABLET PO SCH (08:36)
[2019-05-25] MEDS: Lisinopril 20 MG TABLET PO SCH (08:36)
[2019-05-25] MEDS: Insulin LISPRO 300 UNITS/3 ML VIAL SQ SCH ×3 (08:38→17:03)
[2019-05-25] MEDS ORDERED: Insulin DETEMIR 100 UNIT/ML X5UNITS SQ SCH (21:00)
[2019-05-26] MEDS: *HR* Heparin 5,000 UNIT/ML VIAL SQ SCH ×2 (05:25→17:34)
[2019-05-26] MEDS ORDERED: Lidocaine -MPF 2% 2 ML VIAL ONE (08:04)
[2019-05-26] MEDS ORDERED: Propofol 500 MG/50 ML INFUS..BTL ONE (08:04)
[2019-05-26] MEDS ORDERED: *HR* FentaNYL (PF) 100 MCG/2 ML VIAL ONE (08:05)
[2019-05-26] MEDS ORDERED: SODIUM CHLORIDE INTRAART ONE (08:45)
[2019-05-26] MEDS ORDERED: [UNRECOGNIZED DRUG - OTHER] INTRAART ONE (08:45)
[2019-05-26] MEDS ORDERED: Bupivacaine/Clonidine Syringe 20 ML, Syringe LUER-LOK 1 EACH TP ONE (08:45)
[2019-05-26] MEDS ORDERED: ROPIVACAINE INTRAART ONE (08:45)
[2019-05-26] MEDS ORDERED: *HR* Labetalol 20 MG/4 ML SYRINGE IVP PRN (08:49)
[2019-05-26] MEDS ORDERED: Ondansetron 4 MG/2 ML VIAL IVP ONE (08:49)
[2019-05-26] MEDS ORDERED: *HR* FentaNYL (PF) 100 MCG/2 ML VIAL IVP PRN (08:49)
[2019-05-26] MEDS ORDERED: *HR* Promethazine 25 MG/ML VIAL IVP PRN (08:49)
[2019-05-26] MEDS ORDERED: *HR* OxyCODONE Immed Rel 5 MG TABLET PO PRN (08:49)
[2019-05-26] MEDS ORDERED: *HR* PHENYLEPHRINE 1,000 MCG/10 ML SYRINGE IVP ONE (08:56)
[2019-05-26] MEDS ORDERED: Calcium Gluconate 1,000 MG/10 ML VIAL ONE (08:57)
[2019-05-26] MEDS ORDERED: ROPIVACAINE/PF/NS 0.25% 1 EACH SYRINGE INTRAART ONE (09:21)
[2019-05-26] MEDS ORDERED: Lidocaine 1% 20 ML MDV ONE (09:22)
[2019-05-26] MEDS: Insulin LISPRO 300 UNITS/3 ML VIAL SQ SCH ×3 (09:47→17:32)
[2019-05-26] MEDS ORDERED: Dextrose Gel 15 GM/37.5 ML TUBE PO PRN ×2 (10:31)
[2019-05-26] MEDS ORDERED: Naloxone 0.4 MG/ML INJ IVP PRN (10:31)
[2019-05-26] MEDS ORDERED: *HR* Dextrose 50 % in Water (Syg) 50 ML SYRINGE IVP PRN (10:31)
[2019-05-26] MEDS ORDERED: D5% in Water 1,000 ML IVC PRN (10:31)
[2019-05-26] MEDS ORDERED: Insulin DETEMIR 100 UNIT/ML X5UNITS SQ SCH (21:00)
[2019-05-26] MEDS: Insulin DETEMIR 100 UNIT/ML X5UNITS SQ SCH (21:21)
[2019-05-27] MEDS: *HR* OxyCODONE/APAP 5/325 TABLET PO PRN ×2 (03:44→16:09)
[2019-05-27] MEDS: *HR* Heparin 5,000 UNIT/ML VIAL SQ SCH ×2 (05:08→18:01)
[2019-05-27] MEDS: Lisinopril 20 MG TABLET PO SCH (09:13)
[2019-05-27] MEDS: Spironolactone 25 MG TABLET PO SCH (09:13)
[2019-05-27] MEDS: Furosemide 20 MG TABLET PO SCH (09:14)
[2019-05-27] MEDS: Insulin LISPRO 300 UNITS/3 ML VIAL SQ SCH ×3 (09:15→16:14)
[2019-05-27 12:40] LABS: Basophils # 0.1 K/mcL (0.0-0.2); Basophils % 0.6 %; Eosinophils # 0.1 K/mcL (0.0-0.6); Eosinophils % 1.5 %; Hematocrit 33.7 % (37.5-50.1); Hemoglobin 10.6 g/dL (12.9-16.9); Immature Granulocytes % 0.3 % (0-4); Lymphocytes # 2.1 K/mcL (0.6-4.6); Lymphocytes % 24.1 %; Mean Corpuscular HGB Conc 31.5 g/dL (31.6-35.5); Mean Corpuscular Hemoglobin 26.6 pg (28.0-33.3); Mean Corpuscular Volume 84.5 fL (83.0-100.0); Mean Platelet Volume 9.5 fL (9.4-12.4); Monocytes # 0.8 K/mcL (0.0-1.3); Monocytes % 8.7 %; Neutrophils # 5.6 K/mcL (1.6-8.9); Platelet Count 319 K/mcL (140-400); Red Blood Count 3.99 M/mcL (4.19-5.50); Segmented Neutrophils % 64.8 %; White Blood Count 8.7 K/mcL (4.3-11.1)
[2019-05-27 13:00] LABS: BUN/Creatinine Ratio 29 (6-26); Blood Urea Nitrogen 22 mg/dL (8-23); Calcium 9.2 mg/dL (8.6-10.3); Carbon Dioxide 29 mEq/L (23-29); Chloride 100 mEq/L (98-107); Glucose 168 mg/dL (70-105); Osmolality,Calculated 289 (280-300); Potassium 4.4 mEq/L (3.5-5.1); Sodium 136 mEq/L (136-145); eGFR For African Americans > 60 (> 60); eGFR For Non-African Americans > 60 (> 60)
[2019-05-27] MEDS: Insulin DETEMIR 100 UNIT/ML X5UNITS SQ SCH (21:12)
[2019-05-27] MEDS: *HR* OxyCODONE/APAP 10/325 TABLET PO PRN (22:25)
[2019-05-28] MEDS: *HR* Heparin 5,000 UNIT/ML VIAL SQ SCH ×2 (05:29→17:14)
[2019-05-28] MEDS: Insulin LISPRO 300 UNITS/3 ML VIAL SQ SCH ×3 (07:38→17:13)
[2019-05-28 07:48] LABS: Hemoglobin 10.3 g/dL (12.9-16.9); Mean Corpuscular HGB Conc 32.2 g/dL (31.6-35.5); Mean Corpuscular Hemoglobin 26.8 pg (28.0-33.3); Mean Corpuscular Volume 83.3 fL (83.0-100.0); Mean Platelet Volume 10.1 fL (9.4-12.4); Platelet Count 261 K/mcL (140-400); Red Blood Count 3.84 M/mcL (4.19-5.50); Red Cell Distribution Width 14.1 % (11.5-14.5); White Blood Count 9.6 K/mcL (4.3-11.1)
[2019-05-28] MEDS: Spironolactone 25 MG TABLET PO SCH (08:49)
[2019-05-28] MEDS: Furosemide 20 MG TABLET PO SCH (08:50)
[2019-05-28] MEDS: Lisinopril 20 MG TABLET PO SCH (08:50)
[2019-05-28 09:26] LABS: BUN/Creatinine Ratio 27 (6-26); Blood Urea Nitrogen 20 mg/dL (8-23); Calcium 9.1 mg/dL (8.6-10.3); Carbon Dioxide 22 mEq/L (23-29); Chloride 104 mEq/L (98-107); Glucose 129 mg/dL (70-105); Osmolality,Calculated 286 (280-300); Potassium 4.6 mEq/L (3.5-5.1); Sodium 136 mEq/L (136-145); eGFR For African Americans > 60 (> 60); eGFR For Non-African Americans > 60 (> 60)
[2019-05-28] MEDS: Insulin DETEMIR 100 UNIT/ML X5UNITS SQ SCH (20:13)
[2019-05-29] MEDS: *HR* OxyCODONE/APAP 10/325 TABLET PO PRN ×2 (02:45→22:32)
[2019-05-29] MEDS: *HR* Heparin 5,000 UNIT/ML VIAL SQ SCH ×2 (06:33→17:28)
[2019-05-29] MEDS: Insulin LISPRO 300 UNITS/3 ML VIAL SQ SCH ×3 (07:45→17:27)
[2019-05-29] MEDS: Spironolactone 25 MG TABLET PO SCH (08:51)
[2019-05-29] MEDS: Lisinopril 20 MG TABLET PO SCH (08:51)
[2019-05-29] MEDS: Furosemide 20 MG TABLET PO SCH (08:51)
[2019-05-29] MEDS: Insulin DETEMIR 100 UNIT/ML X5UNITS SQ SCH (20:35)
[2019-05-30] MEDS: *HR* Heparin 5,000 UNIT/ML VIAL SQ SCH (05:28)
[2019-05-30] MEDS: Spironolactone 25 MG TABLET PO SCH (08:14)
[2019-05-30] MEDS: Furosemide 20 MG TABLET PO SCH (08:16)
[2019-05-30] MEDS: Lisinopril 20 MG TABLET PO SCH (08:17)
[2019-05-30] MEDS: Insulin LISPRO 300 UNITS/3 ML VIAL SQ SCH ×2 (08:18→12:51)
[2019-05-30 14:34] VITALS: BP 151/81
== END 2019-05-30 16:15 | disposition home or self-care (01) | DRG 240 ==
LOC: 3ANU → SUATTDRO 09:27
PROVIDERS: ADMIT Internal Medicine; ATTEND Internal Medicine

== ENCOUNTER 2019-06-09 09:54 | Inpatient (IN) ==
[~2019-06-09 09:54] MED LIST: Bupivacaine/Clonidine Syringe 20 ML, Syringe LUER-LOK 1 EACH TP ONE
[2019-06-09] MEDS ORDERED: Clindamycin 900 MG/50 ML 900 MG/50 ML IV.SOLN IVPB ONE (10:14)
[2019-06-09] MEDS ORDERED: Ringers Solution, Lactated 1,000 ML IVC SCH (10:15)
[2019-06-09] MEDS ORDERED: Acetaminophen IV 1,000 MG/100 ML INFUS..BTL IVPB ONE ×2 (10:40→15:36)
[2019-06-09] MEDS ORDERED: *HR* HYDROmorphone (PF) 1 MG/ML SYRINGE IVP PRN (11:14)
[2019-06-09] MEDS ORDERED: *HR* OxyCODONE Immed Rel 5 MG TABLET PO PRN (11:14)
[2019-06-09] MEDS ORDERED: *HR* FentaNYL (PF) 100 MCG/2 ML VIAL ONE ×2 (13:04→13:49)
[2019-06-09] MEDS ORDERED: *HR* Midazolam HCl 2 MG/2 ML VIAL ONE ×2 (13:05→13:49)
[2019-06-09] MEDS ORDERED: *HR* Propofol 200 MG/20 ML VIAL IVP ONE (13:49)
[2019-06-09] MEDS ORDERED: *HR* PHENYLEPHRINE 1,000 MCG/10 ML SYRINGE IVP ONE (14:38)
[2019-06-09] MEDS ORDERED: Ketorolac 30 MG/ML VIAL ONE (15:10)
[2019-06-09] MEDS ORDERED: Ondansetron 4 MG/2 ML VIAL ONE (15:12)
[2019-06-09] MEDS ORDERED: *HR* OxyCODONE/APAP 5/325 TABLET PO PRN (15:31)
[2019-06-09] MEDS: Ertapenem 1,000 MG in 0.9 % Sodium Chloride Mini Bag 100 ML IVPB SCH (17:13)
[2019-06-09] MEDS: Ringers Solution, Lactated 1,000 ML IVC SCH (20:41)
[2019-06-09] MEDS: carvediloL 6.25 MG TABLET PO SCH (20:54)
[2019-06-09] MEDS ORDERED: carvediloL 6.25 MG TABLET PO SCH (21:00)
[2019-06-09] MEDS ORDERED: NON-FORMULARY MEDICATION 1 EACH EACH (Enalapril Maleate [Vasotec] 10 MG) PO SCH (21:00)
[2019-06-10 02:30] LABS: Basophils # 0.1 K/mcL (0.0-0.2); Basophils % 0.7 %; Eosinophils # 0.1 K/mcL (0.0-0.6); Eosinophils % 1.8 %; Hematocrit 33.6 % (37.5-50.1); Hemoglobin 10.5 g/dL (12.9-16.9); Immature Granulocytes % 0.5 % (0-4); Lymphocytes # 1.8 K/mcL (0.6-4.6); Lymphocytes % 24.2 %; Mean Corpuscular HGB Conc 31.3 g/dL (31.6-35.5); Mean Corpuscular Hemoglobin 26.3 pg (28.0-33.3); Mean Platelet Volume 9.6 fL (9.4-12.4); Monocytes # 0.7 K/mcL (0.0-1.3); Monocytes % 9.7 %; Neutrophils # 4.6 K/mcL (1.6-8.9); Platelet Count 381 K/mcL (140-400); Segmented Neutrophils % 63.1 %; White Blood Count 7.3 K/mcL (4.3-11.1)
[2019-06-10 02:53] LABS: BUN/Creatinine Ratio 22 (6-26); Blood Urea Nitrogen 29 mg/dL (8-23); Calcium 9.3 mg/dL (8.6-10.3); Carbon Dioxide 27 mEq/L (23-29); Chloride 99 mEq/L (98-107); Glucose 127 mg/dL (70-105); Osmolality,Calculated 285 (280-300); Potassium 4.6 mEq/L (3.5-5.1); Sodium 134 mEq/L (136-145); eGFR For African Americans > 60 (> 60); eGFR For Non-African Americans 54 (> 60)
[2019-06-10] MEDS: *HR* OxyCODONE/APAP 5/325 TABLET PO PRN ×3 (06:09→21:04)
[2019-06-10] MEDS: Insulin DETEMIR 100 UNIT/ML X5UNITS SQ SCH (07:59)
[2019-06-10] MEDS: GlipiZIDE 5 MG TABLET PO SCH (07:59)
[2019-06-10] MEDS: Lisinopril 20 MG TABLET PO SCH ×2 (08:00→21:04)
[2019-06-10] MEDS: Furosemide 20 MG TABLET PO SCH (08:00)
[2019-06-10] MEDS: Spironolactone 25 MG TABLET PO SCH (08:00)
[2019-06-10] MEDS: *HR* SitaGLIPtin 100 MG TABLET PO SCH (08:00)
[2019-06-10] MEDS: carvediloL 6.25 MG TABLET PO SCH ×2 (08:00→17:16)
[2019-06-10] MEDS ORDERED: NON-FORMULARY MEDICATION 1 EACH EACH (Glipizide [Glipizide] 10 MG) PO SCH (09:00)
[2019-06-10] MEDS ORDERED: NON-FORMULARY MEDICATION 1 EACH EACH (Insulin Glargine,Hum.Rec.Anlog [Basaglar Kwikpen U-1 SQ SCH (09:00)
[2019-06-10] MEDS ORDERED: *HR* SitaGLIPtin 100 MG TABLET PO SCH (09:00)
[2019-06-10] MEDS ORDERED: Furosemide 20 MG TABLET PO SCH (09:00)
[2019-06-10] MEDS ORDERED: Spironolactone 25 MG TABLET PO SCH (09:00)
[2019-06-10] MEDS: Ringers Solution, Lactated 1,000 ML IVC SCH (14:44)
[2019-06-10] MEDS: *HR* Heparin 5,000 UNIT/ML VIAL SQ SCH (17:16)
[2019-06-10] MEDS: Ertapenem 1,000 MG in 0.9 % Sodium Chloride Mini Bag 100 ML IVPB SCH (17:16)
[2019-06-11] MEDS: *HR* Heparin 5,000 UNIT/ML VIAL SQ SCH ×2 (05:48→17:28)
[2019-06-11] MEDS: Spironolactone 25 MG TABLET PO SCH (09:18)
[2019-06-11] MEDS: Lisinopril 20 MG TABLET PO SCH ×2 (09:18→20:46)
[2019-06-11] MEDS: GlipiZIDE 5 MG TABLET PO SCH (09:18)
[2019-06-11] MEDS: Insulin DETEMIR 100 UNIT/ML X5UNITS SQ SCH (09:18)
[2019-06-11] MEDS: *HR* OxyCODONE/APAP 5/325 TABLET PO PRN ×2 (09:18→17:31)
[2019-06-11] MEDS: Furosemide 20 MG TABLET PO SCH (09:18)
[2019-06-11] MEDS: *HR* SitaGLIPtin 100 MG TABLET PO SCH (09:18)
[2019-06-11] MEDS: carvediloL 6.25 MG TABLET PO SCH ×2 (09:18→17:28)
[2019-06-11] MEDS ORDERED: *HR* Dextrose 50 % in Water (Syg) 50 ML SYRINGE IVC ONE (13:38)
[2019-06-11] MEDS ORDERED: *HR* Dextrose 50 % in Water (Syg) 50 ML SYRINGE IVP ONE (14:53)
[2019-06-11 15:28] LABS: Hematocrit 35.9 % (37.5-50.1); Hemoglobin 11.5 g/dL (12.9-16.9); Mean Corpuscular Hemoglobin 26.4 pg (28.0-33.3); Mean Corpuscular Volume 82.3 fL (83.0-100.0); Mean Platelet Volume 9.3 fL (9.4-12.4); Red Blood Count 4.36 M/mcL (4.19-5.50); Red Cell Distribution Width 13.9 % (11.5-14.5)
[2019-06-11 15:33] LABS: White Blood Count 17.4 K/mcL (4.3-11.1)
[2019-06-11 15:57] LABS: BUN/Creatinine Ratio 26 (6-26); Blood Urea Nitrogen 27 mg/dL (8-23); Calcium 9.9 mg/dL (8.6-10.3); Carbon Dioxide 23 mEq/L (23-29); Chloride 97 mEq/L (98-107); Glucose 27 mg/dL (70-105); Osmolality,Calculated 277 (280-300); Sodium 133 mEq/L (136-145); eGFR For African Americans > 60 (> 60); eGFR For Non-African Americans > 60 (> 60)
[2019-06-11] MEDS: Ringers Solution, Lactated 1,000 ML IVC SCH (16:12)
[2019-06-11] MEDS: Ertapenem 1,000 MG in 0.9 % Sodium Chloride Mini Bag 100 ML IVPB SCH (17:28)
[2019-06-11] MEDS ORDERED: Insulin DETEMIR 100 UNIT/ML X5UNITS SQ SCH (21:00)
[2019-06-12] MEDS: *HR* Heparin 5,000 UNIT/ML VIAL SQ SCH ×2 (05:47→17:48)
[2019-06-12] MEDS: Furosemide 20 MG TABLET PO SCH (09:00)
[2019-06-12] MEDS: *HR* OxyCODONE/APAP 5/325 TABLET PO PRN ×3 (09:02→23:15)
[2019-06-12] MEDS: *HR* SitaGLIPtin 100 MG TABLET PO SCH (09:02)
[2019-06-12] MEDS: GlipiZIDE 5 MG TABLET PO SCH (09:02)
[2019-06-12] MEDS: Spironolactone 25 MG TABLET PO SCH (09:02)
[2019-06-12] MEDS: Lisinopril 20 MG TABLET PO SCH ×2 (09:02→20:31)
[2019-06-12] MEDS: carvediloL 6.25 MG TABLET PO SCH ×2 (09:03→17:49)
[2019-06-12 10:17] LABS: Basophils % 0.2 %; Hematocrit 31.8 % (37.5-50.1); Hemoglobin 10.6 g/dL (12.9-16.9); Immature Granulocytes % 0.5 % (0-4); Lymphocytes # 1.7 K/mcL (0.6-4.6); Lymphocytes % 10.3 %; Mean Corpuscular HGB Conc 33.3 g/dL (31.6-35.5); Mean Corpuscular Hemoglobin 26.4 pg (28.0-33.3); Mean Corpuscular Volume 79.1 fL (83.0-100.0); Mean Platelet Volume 9.2 fL (9.4-12.4); Monocytes # 1.2 K/mcL (0.0-1.3); Monocytes % 7.1 %; Neutrophils # 13.7 K/mcL (1.6-8.9); Platelet Count 393 K/mcL (140-400); Red Blood Count 4.02 M/mcL (4.19-5.50); Red Cell Distribution Width 13.8 % (11.5-14.5); Segmented Neutrophils % 81.9 %; White Blood Count 16.7 K/mcL (4.3-11.1)
[2019-06-12] MEDS: Ringers Solution, Lactated 1,000 ML IVC SCH (14:54)
[2019-06-12] MEDS: Ertapenem 1,000 MG in 0.9 % Sodium Chloride Mini Bag 100 ML IVPB SCH (17:48)
[2019-06-12] MEDS: Insulin DETEMIR 100 UNIT/ML X5UNITS SQ SCH (20:31)
[2019-06-12] MEDS ORDERED: Acetaminophen 325 MG TABLET PO PRN (22:58)
[2019-06-13] MEDS: *HR* Heparin 5,000 UNIT/ML VIAL SQ SCH ×2 (05:35→17:32)
[2019-06-13 06:41] LABS: Hematocrit 31.2 % (37.5-50.1); Hemoglobin 10.2 g/dL (12.9-16.9); Mean Corpuscular HGB Conc 32.7 g/dL (31.6-35.5); Mean Corpuscular Hemoglobin 26.3 pg (28.0-33.3); Mean Corpuscular Volume 80.4 fL (83.0-100.0); Mean Platelet Volume 9.7 fL (9.4-12.4); Platelet Count 416 K/mcL (140-400); Red Blood Count 3.88 M/mcL (4.19-5.50); Red Cell Distribution Width 14.3 % (11.5-14.5); White Blood Count 14.8 K/mcL (4.3-11.1)
[2019-06-13 07:09] LABS: BUN/Creatinine Ratio 37 (6-26); Blood Urea Nitrogen 39 mg/dL (8-23); Calcium 9.2 mg/dL (8.6-10.3); Carbon Dioxide 26 mEq/L (23-29); Chloride 99 mEq/L (98-107); Glucose 86 mg/dL (70-105); Osmolality,Calculated 289 (280-300); Potassium 4.4 mEq/L (3.5-5.1); Sodium 135 mEq/L (136-145); eGFR For African Americans > 60 (> 60); eGFR For Non-African Americans > 60 (> 60)
[2019-06-13] MEDS: GlipiZIDE 5 MG TABLET PO SCH (08:49)
[2019-06-13] MEDS: Spironolactone 25 MG TABLET PO SCH (08:49)
[2019-06-13] MEDS: Lisinopril 20 MG TABLET PO SCH ×2 (08:49→21:02)
[2019-06-13] MEDS: *HR* SitaGLIPtin 100 MG TABLET PO SCH (08:50)
[2019-06-13] MEDS: carvediloL 6.25 MG TABLET PO SCH ×2 (08:50→17:31)
[2019-06-13] MEDS: *HR* OxyCODONE/APAP 5/325 TABLET PO PRN ×2 (08:50→17:43)
[2019-06-13] MEDS: Furosemide 20 MG TABLET PO SCH (08:50)
[2019-06-13] MEDS: Insulin DETEMIR 100 UNIT/ML X5UNITS SQ SCH ×2 (11:48→21:03)
[2019-06-13] MEDS: Ertapenem 1,000 MG in 0.9 % Sodium Chloride Mini Bag 100 ML IVPB SCH (17:34)
[2019-06-13] MEDS: Ringers Solution, Lactated 1,000 ML IVC SCH (20:53)
[2019-06-14] MEDS: *HR* OxyCODONE/APAP 5/325 TABLET PO PRN (02:52)
[2019-06-14] MEDS: *HR* Heparin 5,000 UNIT/ML VIAL SQ SCH ×2 (05:49→18:06)
[2019-06-14 06:42] LABS: Basophils % 0.3 %; Eosinophils % 0.3 %; Hematocrit 31.2 % (37.5-50.1); Hemoglobin 10.1 g/dL (12.9-16.9); Immature Granulocytes % 0.5 % (0-4); Lymphocytes # 1.8 K/mcL (0.6-4.6); Lymphocytes % 12.1 %; Mean Corpuscular HGB Conc 32.4 g/dL (31.6-35.5); Mean Corpuscular Hemoglobin 25.8 pg (28.0-33.3); Mean Corpuscular Volume 79.8 fL (83.0-100.0); Mean Platelet Volume 9.5 fL (9.4-12.4); Monocytes # 1.1 K/mcL (0.0-1.3); Monocytes % 7.1 %; Neutrophils # 12.2 K/mcL (1.6-8.9); Platelet Count 433 K/mcL (140-400); Red Blood Count 3.91 M/mcL (4.19-5.50); Red Cell Distribution Width 14.3 % (11.5-14.5); Segmented Neutrophils % 79.7 %; White Blood Count 15.2 K/mcL (4.3-11.1)
[2019-06-14 07:05] LABS: BUN/Creatinine Ratio 40 (6-26); Blood Urea Nitrogen 35 mg/dL (8-23); Calcium 9.3 mg/dL (8.6-10.3); Carbon Dioxide 26 mEq/L (23-29); Chloride 99 mEq/L (98-107); Glucose 79 mg/dL (70-105); Osmolality,Calculated 287 (280-300); Potassium 4.7 mEq/L (3.5-5.1); Sodium 135 mEq/L (136-145); eGFR For African Americans > 60 (> 60); eGFR For Non-African Americans > 60 (> 60)
[2019-06-14] MEDS: Spironolactone 25 MG TABLET PO SCH (09:33)
[2019-06-14] MEDS: GlipiZIDE 5 MG TABLET PO SCH (09:35)
[2019-06-14] MEDS: carvediloL 6.25 MG TABLET PO SCH ×2 (09:37→18:11)
[2019-06-14] MEDS: *HR* SitaGLIPtin 100 MG TABLET PO SCH (09:38)
[2019-06-14] MEDS: Furosemide 20 MG TABLET PO SCH (09:39)
[2019-06-14] MEDS: Lisinopril 20 MG TABLET PO SCH ×2 (09:39→21:38)
[2019-06-14] MEDS: Insulin DETEMIR 100 UNIT/ML X5UNITS SQ SCH ×2 (09:41→21:38)
[2019-06-15] MEDS: *HR* OxyCODONE/APAP 5/325 TABLET PO PRN ×2 (00:53→09:10)
[2019-06-15] MEDS: *HR* Heparin 5,000 UNIT/ML VIAL SQ SCH (00:59)
[2019-06-15 01:09] LABS: Basophils % 0.2 %; Eosinophils % 0.1 %; Hematocrit 30.3 % (37.5-50.1); Hemoglobin 9.6 g/dL (12.9-16.9); Immature Granulocytes % 0.6 % (0-4); Lymphocytes # 2.1 K/mcL (0.6-4.6); Lymphocytes % 14.8 %; Mean Corpuscular HGB Conc 31.7 g/dL (31.6-35.5); Mean Corpuscular Volume 82.1 fL (83.0-100.0); Mean Platelet Volume 9.3 fL (9.4-12.4); Monocytes # 1.1 K/mcL (0.0-1.3); Monocytes % 7.8 %; Neutrophils # 10.6 K/mcL (1.6-8.9); Platelet Count 407 K/mcL (140-400); Red Blood Count 3.69 M/mcL (4.19-5.50); Red Cell Distribution Width 14.5 % (11.5-14.5); Segmented Neutrophils % 76.5 %; White Blood Count 13.8 K/mcL (4.3-11.1)
[2019-06-15 01:34] LABS: BUN/Creatinine Ratio 43 (6-26); Blood Urea Nitrogen 46 mg/dL (8-23); Calcium 9.4 mg/dL (8.6-10.3); Carbon Dioxide 24 mEq/L (23-29); Chloride 99 mEq/L (98-107); Glucose 175 mg/dL (70-105); Osmolality,Calculated 294 (280-300); Potassium 4.4 mEq/L (3.5-5.1); Sodium 134 mEq/L (136-145); eGFR For African Americans > 60 (> 60); eGFR For Non-African Americans > 60 (> 60)
[2019-06-15] MEDS: Insulin DETEMIR 100 UNIT/ML X5UNITS SQ SCH (08:55)
[2019-06-15] MEDS: Spironolactone 25 MG TABLET PO SCH (09:10)
[2019-06-15] MEDS: Lisinopril 20 MG TABLET PO SCH (09:10)
[2019-06-15] MEDS: Furosemide 20 MG TABLET PO SCH (09:11)
[2019-06-15] MEDS: carvediloL 6.25 MG TABLET PO SCH ×2 (09:11→18:38)
[2019-06-15] MEDS: D5 IVC SCH ×4 (09:16→21:10)
[2019-06-15] MEDS: NACL 0.9% IVC SCH ×4 (09:16→21:10)
[2019-06-15] MEDS ORDERED: *HR* Dextrose 50 % in Water (Syg) 50 ML SYRINGE IVP PRN ×2 (12:28→16:10)
[2019-06-15] MEDS ORDERED: Dextrose Gel 15 GM/37.5 ML TUBE PO PRN ×4 (12:28→16:10)
[2019-06-15] MEDS ORDERED: D5% in Water 1,000 ML IVC PRN ×2 (12:28→16:10)
[2019-06-15] MEDS: GlipiZIDE 5 MG TABLET PO SCH (12:39)
[2019-06-15] MEDS ORDERED: Vancomycin 1,000 MG VIAL ONE (13:23)
[2019-06-15] MEDS ORDERED: *HR* Midazolam HCl 2 MG/2 ML VIAL ONE ×2 (13:24→14:58)
[2019-06-15] MEDS ORDERED: *HR* FentaNYL (PF) 100 MCG/2 ML VIAL ONE (13:25)
[2019-06-15] MEDS ORDERED: Ropivacaine/PF 0.5% 30 ML VIAL ONE (13:25)
[2019-06-15] MEDS ORDERED: Vancomycin 1,000 MG, Sodium Chloride IRRigation 1,000 ML IR ONE (13:30)
[2019-06-15] MEDS ORDERED: *HR* Succinylcholine 200 MG/10 ML VIAL IVP ONE (13:32)
[2019-06-15] MEDS ORDERED: *HR* HYDROmorphone (PF) 1 MG/ML SYRINGE IVP PRN (13:46)
[2019-06-15] MEDS ORDERED: *HR* Promethazine 25 MG/ML VIAL IVP PRN ×2 (13:46→16:10)
[2019-06-15] MEDS ORDERED: *HR* OxyCODONE Immed Rel 5 MG TABLET PO PRN ×3 (13:46→16:10)
[2019-06-15] MEDS ORDERED: Ondansetron 4 MG/2 ML VIAL IVP ONE (13:46)
[2019-06-15] MEDS ORDERED: Ketamine *HR* 500 MG/10 ML MDV ONE (13:48)
[2019-06-15] MEDS ORDERED: EPINEPHrine 1 MG/ML VIAL ONE (14:22)
[2019-06-15] MEDS ORDERED: EPHEDrine 50 MG/ML VIAL ONE (14:22)
[2019-06-15 15:00] LABS: Estimated Average Glucose 223 mg/dl
[2019-06-15] MEDS ORDERED: CeFAZolin Syr 2,000MG/20 ML 2,000 MG/20 ML SYRINGE IVPB ONE ×2 (15:30→16:10)
[2019-06-15] MEDS ORDERED: Naloxone 0.4 MG/ML INJ IVP PRN (16:10)
[2019-06-15] MEDS ORDERED: Acetaminophen 325 MG TABLET PO PRN ×2 (16:10)
[2019-06-15] MEDS ORDERED: Insulin LISPRO 300 UNITS/3 ML VIAL SQ SCH ×3 (18:00→21:00)
[2019-06-15] MEDS ORDERED: Lisinopril 20 MG TABLET PO SCH (21:00)
[2019-06-15] MEDS ORDERED: Insulin DETEMIR 100 UNIT/ML X5UNITS SQ SCH ×2 (21:00)
[2019-06-15] MEDS ORDERED: Insulin Human Regular 10 UNIT in 0.9 % Sodium Chloride 10 ML IV ONE (23:26)
[2019-06-16] MEDS ORDERED: Insulin Human Regular 10 UNIT in 0.9 % Sodium Chloride 10 ML IV ONE (02:34)
[2019-06-16] MEDS: NACL 0.9% IVC SCH ×3 (03:38→21:30)
[2019-06-16] MEDS: D5 IVC SCH ×3 (03:38→21:30)
[2019-06-16] MEDS: *HR* Heparin 5,000 UNIT/ML VIAL SQ SCH ×2 (06:00→17:27)
[2019-06-16 06:53] LABS: Basophils % 0.1 %; Hematocrit 27.6 % (37.5-50.1); Hemoglobin 9.1 g/dL (12.9-16.9); Immature Granulocytes % 0.5 % (0-4); Lymphocytes % 11.4 %; Mean Corpuscular Hemoglobin 26.3 pg (28.0-33.3); Mean Corpuscular Volume 79.8 fL (83.0-100.0); Mean Platelet Volume 9.5 fL (9.4-12.4); Monocytes # 0.3 K/mcL (0.0-1.3); Monocytes % 3.5 %; Neutrophils # 7.7 K/mcL (1.6-8.9); Platelet Count 414 K/mcL (140-400); Red Blood Count 3.46 M/mcL (4.19-5.50); Red Cell Distribution Width 14.3 % (11.5-14.5); Segmented Neutrophils % 84.5 %; White Blood Count 9.1 K/mcL (4.3-11.1)
[2019-06-16 07:18] LABS: BUN/Creatinine Ratio 55 (6-26); Blood Urea Nitrogen 46 mg/dL (8-23); Calcium 8.9 mg/dL (8.6-10.3); Carbon Dioxide 23 mEq/L (23-29); Chloride 100 mEq/L (98-107); Glucose 291 mg/dL (70-105); Osmolality,Calculated 299 (280-300); Potassium 4.5 mEq/L (3.5-5.1); Sodium 133 mEq/L (136-145); eGFR For African Americans > 60 (> 60); eGFR For Non-African Americans > 60 (> 60)
[2019-06-16 07:19] LABS: Albumin 3.1 g/dL (3.5-5.7); Albumin/Globulin Ratio 0.8 (1.1-2.2); Bilirubin,Indirect 0.3 mg/dL (0.0-1.0); Bilirubin,Total 0.3 mg/dL (0.3-1.0); Globulin 3.9 g/dL (2.4-3.5)
[2019-06-16] MEDS ORDERED: Insulin LISPRO 300 UNITS/3 ML VIAL SQ SCH ×2 (07:30→08:05)
[2019-06-16] MEDS ORDERED: Insulin DETEMIR 100 UNIT/ML X5UNITS SQ SCH (09:00)
[2019-06-16] MEDS: carvediloL 6.25 MG TABLET PO SCH ×2 (09:51→17:27)
[2019-06-16] MEDS: Spironolactone 25 MG TABLET PO SCH (09:51)
[2019-06-16] MEDS: Furosemide 20 MG TABLET PO SCH (09:51)
[2019-06-16] MEDS: Insulin LISPRO 300 UNITS/3 ML VIAL SQ SCH ×4 (13:18→20:03)
[2019-06-16] MEDS: Insulin DETEMIR 100 UNIT/ML X5UNITS SQ SCH (21:42)
[2019-06-17] MEDS: NACL 0.9% IVC SCH ×2 (03:52→19:14)
[2019-06-17] MEDS: D5 IVC SCH ×2 (03:52→19:14)
[2019-06-17 04:43] LABS: Basophils % 0.2 %; Hematocrit 27.8 % (37.5-50.1); Hemoglobin 8.9 g/dL (12.9-16.9); Immature Granulocytes % 0.7 % (0-4); Lymphocytes # 2.3 K/mcL (0.6-4.6); Lymphocytes % 12.8 %; Mean Corpuscular Hemoglobin 26.6 pg (28.0-33.3); Mean Platelet Volume 9.4 fL (9.4-12.4); Monocytes % 5.3 %; Neutrophils # 14.8 K/mcL (1.6-8.9); Platelet Count 443 K/mcL (140-400); Red Blood Count 3.35 M/mcL (4.19-5.50)
[2019-06-17 04:44] LABS: White Blood Count 18.3 K/mcL (4.3-11.1)
[2019-06-17 05:00] LABS: BUN/Creatinine Ratio 56 (6-26); Blood Urea Nitrogen 40 mg/dL (8-23); Carbon Dioxide 24 mEq/L (23-29); Chloride 105 mEq/L (98-107); Glucose 71 mg/dL (70-105); Osmolality,Calculated 294 (280-300); Potassium 4.5 mEq/L (3.5-5.1); Sodium 138 mEq/L (136-145); eGFR For African Americans > 60 (> 60); eGFR For Non-African Americans > 60 (> 60)
[2019-06-17] MEDS: *HR* Heparin 5,000 UNIT/ML VIAL SQ SCH ×2 (06:07→16:57)
[2019-06-17] MEDS: Insulin LISPRO 300 UNITS/3 ML VIAL SQ SCH ×4 (07:47→21:42)
[2019-06-17] MEDS: Furosemide 20 MG TABLET PO SCH (07:53)
[2019-06-17] MEDS: carvediloL 6.25 MG TABLET PO SCH ×2 (07:53→16:57)
[2019-06-17] MEDS: Insulin DETEMIR 100 UNIT/ML X5UNITS SQ SCH ×2 (07:54→21:40)
[2019-06-17] MEDS: Spironolactone 25 MG TABLET PO SCH (07:54)
[2019-06-17 12:25] LABS: Bilirubin,Urine Negative (Negative); Blood,Urine Negative (Negative); Clarity,Urine Clear (Clear); Color,Urine Yellow (Yellow); Glucose,Urine (UA) 100 mg/dL (Normal); Ketones,Urine Negative (Negative); Leukocyte Esterase,Urine Moderate (Negative); Nitrite,Urine Negative (Negative); PH,Urine 5.5 pH Units (5.0-8.0); Protein,Urine Negative (Neg-Trace); Specific Gravity,Urine 1.021 (1.010-1.025); Urobilinogen,Urine Normal (Normal)
[2019-06-17 12:28] LABS: Bacteria,Urine None Seen per hpf (None-Few); Hyaline Casts,Urine None Seen per lpf (None-Few); Squamous Epithelial Cell,Urine Many per lpf (None-Few); WBC,Urine 15-30 per hpf (0-3)
[2019-06-17] MEDS: *HR* OxyCODONE/APAP 5/325 TABLET PO PRN (21:39)
[2019-06-18] MEDS: *HR* OxyCODONE/APAP 5/325 TABLET PO PRN ×2 (02:27→08:53)
[2019-06-18 03:28] LABS: Basophils % 0.3 %; Eosinophils % 0.1 %; Hematocrit 28.9 % (37.5-50.1); Hemoglobin 9.3 g/dL (12.9-16.9); Immature Granulocytes % 0.7 % (0-4); Lymphocytes # 2.7 K/mcL (0.6-4.6); Lymphocytes % 28.5 %; Mean Corpuscular HGB Conc 32.2 g/dL (31.6-35.5); Mean Corpuscular Hemoglobin 26.2 pg (28.0-33.3); Mean Corpuscular Volume 81.4 fL (83.0-100.0); Mean Platelet Volume 9.6 fL (9.4-12.4); Monocytes # 0.9 K/mcL (0.0-1.3); Monocytes % 9.5 %; Neutrophils # 5.7 K/mcL (1.6-8.9); Platelet Count 440 K/mcL (140-400); Red Blood Count 3.55 M/mcL (4.19-5.50); Red Cell Distribution Width 14.2 % (11.5-14.5); Segmented Neutrophils % 60.9 %; White Blood Count 9.4 K/mcL (4.3-11.1)
[2019-06-18 03:50] LABS: BUN/Creatinine Ratio 47 (6-26); Blood Urea Nitrogen 33 mg/dL (8-23); Calcium 9.1 mg/dL (8.6-10.3); Carbon Dioxide 27 mEq/L (23-29); Chloride 103 mEq/L (98-107); Glucose 122 mg/dL (70-105); Osmolality,Calculated 297 (280-300); Potassium 4.3 mEq/L (3.5-5.1); Sodium 139 mEq/L (136-145); eGFR For African Americans > 60 (> 60); eGFR For Non-African Americans > 60 (> 60)
[2019-06-18] MEDS: *HR* Heparin 5,000 UNIT/ML VIAL SQ SCH (05:30)
[2019-06-18] MEDS: Insulin LISPRO 300 UNITS/3 ML VIAL SQ SCH ×2 (08:33→12:06)
[2019-06-18] MEDS: carvediloL 6.25 MG TABLET PO SCH (08:47)
[2019-06-18] MEDS: Spironolactone 25 MG TABLET PO SCH (08:47)
[2019-06-18] MEDS: Insulin DETEMIR 100 UNIT/ML X5UNITS SQ SCH (08:48)
[2019-06-18] MEDS: Furosemide 20 MG TABLET PO SCH (08:48)
[2019-06-18] MEDS ORDERED: FLU Vac QV 19-20 (6Month+)/PF 0.5 ML SYRINGE IM ONE (11:09)
[2019-06-18 11:27] VITALS: BP 127/82
== END 2019-06-18 13:06 | DRG 240 ==
LOC: 3BNU 09:54 → SAMDAY 09:54 → 3BNU 16:08 → SUATTDRO 06-10 13:37
PROVIDERS: ADMIT Podiatrist Foot Surgery; ATTEND Internal Medicine